=== PATIENT | male | born 1935 | race Caucasian/White ===

== ENCOUNTER 2016-10-27 21:13 | Inpatient (IN) ==
[2016-10-27] MEDS ORDERED: 0.9 % Sodium Chloride 1,000 ML IVC SCH (22:45)
--- NOTE | 2016-10-28 00:49 | Internal Med History&Physical ---
<Miracle Morales - Last Filed: 10/28/16 04:29> Date of Encounter: 10/28/16 Time of Encounter: 00:20 Assessment and Plan (1) Weakness Current visit: Yes Status: Acute Patient states that he had an episode about two weeks ago where he fell while trying to sit on a commode. He also states that today he was not able to walk or move, and felt that his muscles were stiff. CT head was done at [facility], and shows no evidence of an intracranial bleed. CXR showed no acute abnormality. Etiology unclear at this time. (2) Hyperkalemia Current visit: No Status: Acute patient was recently started on lasix and oral potassium supplementation by PCP due to recent signs and symptoms of fluid retention (12lb weight gain in less than one month, 3-4+ pitting edema in bilateral lower extremities, low oxyen sat ). Etiology likely multifactorial secondary to iatragenic causes in combination with baseline CKD. Initial potassium at [facility] ED was 5.6 After kayexalate and IVF, potassium now down to 4.2. continue to monitor. Hold home med potassium chloride. PCP follow up after hospital discharge strongly recommended. (3) Elevated LFTs Current visit: Yes Status: Acute Etiology unclear at this time. Consider hepato-renal syndrome. Holding statin Acetaminophen levels pending Repeat LFTs pending for 1200 Ultrasound of GB and liver pending. total and fractionated billirubin pending at 1200 UDS pending. (4) ANDREW (acute kidney injury) Current visit: Yes Status: Acute Patient's initial Cr was measured at 3.22, his baseline is around 2.6 Holding lisinopri, furosemide. IVF hydration at 75 ml/hr. Consider post renal obstruction, as patient has history of BPH. consider possible congestion secondary to new onset CHF and ichemic cardiomyopathy. Consult to nephrology- patient states he sees Dr. Polk. (5) CKD (chronic kidney disease) Current visit: Yes Status: Chronic continue to monitor IVF hydration plan as above. Qualifiers: Chronic kidney disease stage: unspecified stage Qualified Code(s): N18.9 - Chronic kidney disease, unspecified (6) CAD (coronary artery disease) Current visit: Yes Status: Chronic Continue plavix once home med list confirmed. Qualifiers: Coronary Disease-Associated Artery/Lesion type: bypass graft [place] vs. transplanted heart: unspecified whether [place] or transplanted heart Associated angina: angina presence unspecified Qualified Code(s): I25.810 - Atherosclerosis of coronary artery bypass graft(s) without angina pectoris (7) HTN (hypertension) Current visit: Yes Status: Acute Hold Lisinopril and furosemide due to ANDREW. Blood presures stable at this time. Qualifiers: Hypertension type: essential hypertension Qualified Code(s): I10 - Essential (primary) hypertension (8) Diabetes Current visit: Yes Status: Chronic patient takes Glipizide at home- will hold. Recommend discontinuation, as it is renally excreted and patient has CKD- follow up with PCP outpatient. Sugars well controlled at this time. Low dose sliding scale insulin ACHS accuchecks. Qualifiers: Diabetes mellitus type: type 2 Diabetes mellitus complication status: with unspecified complications Diabetes mellitus intermediate manager insulin use: without intermediate manager use Qualified Code(s): E11.8 - Type 2 diabetes mellitus with unspecified complications (9) GERD (gastroesophageal reflux disease) Current visit: Yes Status: Acute Protonix for GI prophylaxis. Qualifiers: Esophagitis presence: esophagitis presence not specified Qualified Code(s) : K21.9 - Gastro-esophageal reflux disease without esophagitis (10) BPH (benign prostatic hyperplasia) Current visit: Yes Status: Acute continue Flomax once home med list confirmed. May be a possible contributor to ANDREW Qualifiers: Prostatic enlargement morphology: unspecified morphology Lower urinary tract symptom presence: presence of symptoms unspecified Qualified Code(s): N40.0 - Benign prostatic hyperplasia without lower urinary tract symptoms (11) Hypothyroidism Current visit: Yes Status: Chronic restart levothyroxine once home med list is confirmed. Qualifiers: Hypothyroidism type: unspecified Qualified Code(s): E03.9 - Hypothyroidism , unspecified (12) DVT prophylaxis Current visit: Yes Status: Acute Heparin 5,000 units SQ Q8HR Internal Medicine - H&P: HPI Chief complaint: weakness Admitted From: Hospital to Hospital Transfer Plans for Post Hospital Care: Home History of present illness: PCP: Angie Austin Mr. Mueller is a 81 year old male with PMHx of CAD (s/p CABG), hx of stroke, CKD, HTN, DM, CHF, right carotid stenosis, sick sinus syndrome, ischemic cardiomyopathy. Patient came as a transfer from the [facility]. He initially went to the ED with CC of confusion that started about one week ago. According to his son (who was at bedside), patient was confused earlier in the day. When he went to get up and walk he froze and could not keep walking. Patient states that he wanted to walk, but could no move. He says his muscles felt stiff. Patient recently diagnosed with CHF by his PCP and started on lasix with potassium supplementation. Patient complains of decreased appetite that started about two weeks ago, and he states that he cannot "keep his thoughts together." He also reports that he had some trouble walking and dyspnea upon exertion. He had one episode two weeks ago where he fell while going to sit down on the commode. He denies nausea and vomiting. He denies subjective fevers but reports chills. He denies hematuria, hematochezia. He denies numbness/tingling, headache , excess bleeding. 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 Social Hx: lives with his son and daughter in law. DOes not smoke currently, but has a history of smoking for twenty years, 1PPD. He quit when he was about 29. Denies alcohol and illicit drug use. Family Hx: mother in 70s from brain tumor. Father had DM, in 70s from respiratory failure. He has two sons who are alive and healthy. Past Med Surg Social Fam HX - Past Medical History Medical history: coronary artery disease, CVA, diabetes, GERD, glaucoma, hyperlipidemia, hypertension, renal disease Psychiatric history: no psych history - Past Surgical History Surgical History: coronary bypass (CABG) - Social History Smoking Status: Former smoker Smokeless Tobacco Status: No Alcohol use: none Drug use: none - Family History Father Hx Family Endocrine Disorder: Yes (diabetes) Mother Hx Family Cancer: Yes (brain) Internal Medicine - H&P: Meds Benzonatate [Tessalon] 100 mg PO TID PRN 10/27/16 [History] Clopidogrel [Plavix] 75 mg PO DAILY 10/27/16 [History] Furosemide [Lasix] 40 mg PO DAILY 10/27/16 [History] GlipiZIDE [Glucotrol] 2.5 mg PO 3XW 10/27/16 [History] Levothyroxine [Synthroid] 25 mcg PO DAILY 10/27/16 [History] Lisinopril 2.5 mg PO DAILY 10/27/16 [History] Metoprolol Succinate 25 mg PO DAILY 10/27/16 [History] Omeprazole 20 mg PO DAILY 10/27/16 [History] Potassium Chloride [Klor-Con 10] 10 meq PO DAILY 10/27/16 [History] Simvastatin [Zocor] 20 mg PO DAILY 10/27/16 [History] Tamsulosin HCl [Flomax] 0.4 mg PO DAILY 10/27/16 [History] Allergies No Known Allergies Allergy (Verified 10/27/16 18:51) All Systems PM: A 10-system review of systems was performed and is negative for pertinent findings except as documented above in the HPI. - Constitutional Constitutional: chills, lethargy, weakness, no fever(s) - EENT Nose, mouth and throat: no bleeding gums - Cardiovascular Cardiovascular ROS IM: dyspnea on exertion, no syncope - Respiratory Respiratory: no cough - Gastrointestinal Gastrointestinal: diarrhea, no vomiting - Neurological Neurological ROS: abnormal gait, weakness - Hematologic/Lymphatic Hematologic/Lymphatic: no easy bleeding - Constitutional Vitals: Temp Pulse Resp BP Pulse Ox 97.4 F L 62 16 122/72 99 10/27/16 22:55 10/27/16 22:55 10/27/16 22:55 10/27/16 22:55 10/27/16 23:37 General appearance: Present: A&O X 3, pleasant, no acute distress, answers questions appropriately - Head Head exam: Present: atraumatic, normocephalic - Neck Neck exam general surgery: Present: supple, trachea midline - Respiratory Respiratory exam: Present: CTAB. Absent: respiratory distress, wheezes - Cardiovascular Cardiovascular exam: Present: RRR, +S1, +S2 - GI/Abdominal GI/Abdominal exam: Present: normal bowel sounds, soft, tenderness. Absent: guarding Additional comments: tenderness in mid abdomen and epigastric area. - Extremities Exam Extremities exam: Absent: cyanotic, pedal edema Additional comments: patient has ulcer below his right foot. - Neurological Exam Neurological exam: Present: alert, oriented X3. Absent: motor sensory deficit, facial droop, speech deficit - Skin Skin exam: Present: erythema Internal Med - H&P Results - Labs CBC & Chem 7: 10/28/16 00:54 10/28/16 00:54 <Huey Walker - Last Filed: 10/28/16 06:27> Date of Encounter: 10/28/16 All Systems PM: A 10-system review of systems was performed and is negative for pertinent findings except as documented above in the HPI. - EENT Eyes: no blurry vision, no change in vision Ears: no ear pain, no tinnitus Nose, mouth and throat: no nasal congestion, no sore throat - Respiratory Respiratory: no cough, no chest congestion - Gastrointestinal Gastrointestinal: abdominal pain, nausea, no hematemesis, no hematochezia, no melena, no vomiting - Genitourinary Genitourinary ROS male: other (+ decreased urine output), no dysuria, no hematuria - Musculoskeletal Musculoskeletal ROS IM: muscle cramps, muscle weakness, no arthralgias, no back pain - Integumentary Integumentary IM: no rash - Psychiatric Psychiatric: no anxiety, no depression - Endocrine Endocrine IM: no cold intolerance, no heat intolerance - Allergic/Immunologic Allergic/Immunologic: GI upset with certain foods, no wheezing - Constitutional Vitals: Temp Pulse Resp BP Pulse Ox 97.8 F 61 16 124/72 98 10/28/16 04:36 10/28/16 04:36 10/28/16 04:36 10/28/16 04:36 10/28/16 04:36 General appearance: Present: A&O X 3, pleasant, no acute distress Exam: pt looks very dry - Head Head exam: Present: atraumatic, normocephalic - Expanded Head Exam Head exam expanded: Absent: abrasion, contusion, general tenderness - Eye Eye exam: Present: EOMI, normal appearance, PERRL, scleral icterus (subtle ) Pupils: Present: normal accommodation - ENT ENT exam: Present: mucous membranes dry, normal exam, normal oropharynx - Neck Neck exam general surgery: Present: full ROM, supple. Absent: lymphadenopathy, normal inspection - Expanded Neck Exam Neck exam: Absent: carotid bruit - Respiratory Respiratory exam: Present: CTAB. Absent: rales, rhonchi - Cardiovascular Cardiovascular exam: Present: distant heart sounds, RRR, +S1, +S2, systolic murmur (grade 1) - GI/Abdominal GI/Abdominal exam: Present: tenderness (RUQ pain -- mild, no guarding), no peritoneal signs. Absent: guarding, hepatomegaly, mass, rebound, splenomegaly - Extremities Exam Extremities exam: Present: warm. Absent: calf tenderness, joint swelling - Back Exam Back exam: Present: normal inspection. Absent: CVA tenderness (L), CVA tenderness (R) - Neurological Exam Neurological exam: Present: alert, CN II-XII intact, oriented X3, no focal deficits - Psychiatric Psychiatric exam: Present: normal affect, normal mood - Skin Skin exam: Present: dry, warm. Absent: rash Internal Med - H&P Results - Labs CBC & Chem 7: 10/28/16 05:00 10/28/16 05:00 Labs: Short CBC 10/28/16 10/28/16 Range/Units 00:54 05:00 WBC 6.3 5.9 (4.3-11.1) K/mcL Hgb 12.7 L 12.4 L (12.9-16.9) g/dL Hct 39.2 37.8 (37.5-50.1) % Plt Count 159 161 (140-400) K/mcL Neutrophils # 4.2 3.8 (1.6-8.9) K/mcL BMP 10/28/16 10/28/16 00:54 05:00 Sodium 141 143 Potassium 4.2 D 3.9 Chloride 107 108 Carbon Dioxide 25 23 BUN 66 H 64 H Creatinine 3.02 H 2.76 H Glucose 118 H 95 Calcium 9.4 9.2 Liver Function 10/28/16 Range/Units 00:54 Total Bilirubin 3.8 H (0.2-1.2) mg/dL AST 89 H (5-34) Units/L ALT 73 H (0-55) Units/L Alkaline Phosphatase 688 H (38-126) Units/L Albumin 2.6 L (3.5-5.0) g/dL - EKG Data -: EKG Interpreted by Myself - EKG Data EKG comments: 10/28/16 06:15 paced rhythm - Attending Attestation I discussed the patent SELDOVIA, PMH, ROS, lab data, and exam findings with Dr. Morales. I then saw and examined patient independently as well. On my assessment, patient looks very dry and has some scleral icterus on exam. He denies any excessive Tylenol use, heavy alcohol use, and/or any illicit drug use. He does admit to having chronic/recurrent RUQ abdominal pain, and he still has his gallbladder. We are holding his diuretics and are gingerly hydrating him with IVF. I agree with renal and GB ultrasounds as per Dr. Morales. We will also ask Dr. Polk to see patient in consult. Other than my comments and noted exam findings, I agree with Dr. Morales' assessment and plan.
[2016-10-28] MEDS ORDERED: Acetaminophen 325 MG TABLET PO PRN (00:50)
[2016-10-28] MEDS ORDERED: Naloxone 0.4 MG/ML INJ IVP PRN (00:50)
[2016-10-28] MEDS ORDERED: Ondansetron 4 MG/2 ML VIAL IVP PRN (00:50)
[2016-10-28 01:08] LABS: Basophils % 0.3 %; Eosinophils # 0.2 K/mcL (0.0-0.6); Eosinophils % 2.7 %; Hematocrit 39.2 % (37.5-50.1); Hemoglobin 12.7 g/dL (12.9-16.9); Immature Granulocytes % 1.1 % (0-4); Lymphocytes # 1.2 K/mcL (0.6-4.6); Lymphocytes % 19.8 %; Mean Corpuscular HGB Conc 32.4 g/dL (31.6-35.5); Mean Corpuscular Volume 95.6 fL (83.0-100.0); Mean Platelet Volume 11.1 fL (9.4-12.4); Monocytes # 0.5 K/mcL (0.0-1.3); Monocytes % 8.6 %; Neutrophils # 4.2 K/mcL (1.6-8.9); Platelet Count 159 K/mcL (140-400); Red Cell Distribution Width 16.1 % (11.5-14.5); Segmented Neutrophils % 67.5 %
[2016-10-28 01:20] LABS: Albumin 2.6 g/dL (3.5-5.0); Albumin/Globulin Ratio 0.7 (1.1-2.2); Bilirubin,Total 3.8 mg/dL (0.2-1.2); Calcium 9.4 mg/dL (8.6-10.8); Globulin 3.5 g/dL (2.4-3.5); Magnesium 1.4 mg/dL (1.6-2.6); Potassium 4.2 mEq/L (3.5-4.5); Total Protein 6.1 g/dL (6.0-8.3)
[2016-10-28] MEDS ORDERED: *HR* Dextrose 50 % in Water (Syg) 50 ML SYRINGE IVP PRN (02:46)
[2016-10-28] MEDS ORDERED: Dextrose Gel 15 GM PO PRN ×2 (02:46)
[2016-10-28] MEDS ORDERED: D5% in Water 1,000 ML IV PRN (02:46)
[2016-10-28 05:38] LABS: Basophils % 0.3 %; Eosinophils # 0.2 K/mcL (0.0-0.6); Eosinophils % 2.5 %; Hematocrit 37.8 % (37.5-50.1); Hemoglobin 12.4 g/dL (12.9-16.9); Immature Granulocytes % 0.8 % (0-4); Lymphocytes # 1.3 K/mcL (0.6-4.6); Lymphocytes % 22.3 %; Mean Corpuscular HGB Conc 32.8 g/dL (31.6-35.5); Mean Corpuscular Hemoglobin 31.3 pg (28.0-33.3); Mean Corpuscular Volume 95.5 fL (83.0-100.0); Mean Platelet Volume 11.3 fL (9.4-12.4); Monocytes # 0.6 K/mcL (0.0-1.3); Monocytes % 9.9 %; Neutrophils # 3.8 K/mcL (1.6-8.9); Platelet Count 161 K/mcL (140-400); Red Blood Count 3.96 M/mcL (4.19-5.50); Red Cell Distribution Width 16.2 % (11.5-14.5); Segmented Neutrophils % 64.2 %
[2016-10-28 06:07] LABS: Calcium 9.2 mg/dL (8.6-10.8); Magnesium 1.3 mg/dL (1.6-2.6); Phosphorous 3.8 mg/dL (2.3-4.7); Potassium 3.9 mEq/L (3.5-4.5)
[2016-10-28] MEDS: Insulin LISPRO 300 UNITS/3 ML VIAL SQ SCH ×3 (08:25→18:13)
[2016-10-28 08:28] LABS: Amphetamine Screen,Urine Negative ng/mL (Cutoff=1000); Barbiturate Screen,Urine Negative ng/mL (Cutoff=200); Benzodiazepines Screen,Urine Negative ng/mL (Cutoff=200); Cannabinoid Screen,Urine Negative ng/mL (Cutoff = 50); Cocaine Screen,Urine Negative ng/mL (Cutoff= 300); Opiate Screen,Urine Negative ng/mL (Cutoff=300); Phencyclidine Screen,Urine Negative ng/mL (Cutoff=25)
[2016-10-28] MEDS ORDERED: Pantoprazole 40 MG VIAL IVP SCH (09:00)
[2016-10-28] MEDS: 0.9 % Sodium Chloride 1,000 ML IVC SCH ×2 (09:00→23:46)
[2016-10-28] MEDS: *HR* Heparin 5,000 UNIT/ML VIAL SQ SCH ×3 (09:58→23:46)
[2016-10-28] MEDS ORDERED: Magnesium Oxide 400 MG TABLET PO SCH (12:15)
[2016-10-28 12:41] LABS: Albumin 2.4 g/dL (3.5-5.0); Albumin/Globulin Ratio 0.8 (1.1-2.2); Bilirubin,Direct 2.2 mg/dL (0.0-0.5); Bilirubin,Indirect 1.2 mg/dL (0.0-1.2); Bilirubin,Total 3.4 mg/dL (0.2-1.2); Globulin 3.1 g/dL (2.4-3.5); Potassium 4.2 mEq/L (3.5-4.5); Total Protein 5.5 g/dL (6.0-8.3)
[2016-10-28 12:43] LABS: Bilirubin,Urine Negative (Negative); Blood,Urine Negative (Negative); Clarity,Urine Clear (Clear); Color,Urine Dark Yellow (Yellow); Glucose,Urine (UA) Normal (Normal); Ketones,Urine Negative (Negative); Leukocyte Esterase,Urine Negative (Negative); Nitrite,Urine Negative (Negative); Protein,Urine Negative (Neg-Trace); Specific Gravity,Urine 1.014 (1.010-1.025); Urobilinogen,Urine Normal (Normal)
--- NOTE | 2016-10-28 13:13 | Nephrology Consult Note ---
Date of Encounter: 10/28/16 Time of Encounter: 11:35 Assessment and Plan (1) ANDREW (acute kidney injury) Current Visit: Yes Status: Acute ANDREW/CKD in setting of decreased oral intake and diuresis. Creat 2.76, currently at patients baseline with IV hydration. Renal US pending. Hyperkalemia resolved. Muscle stiffness/weakness and confusion resolved. Aviod nephrotoxins, will continue to monitor. History of Present Illness - Reason for Consult Chronic Kidney Disease - History of Present Illness Mr. Mueller is a 81 year old male known to practice wit CKD IV, baseline creat 2.6 -2.9 in setting of DM and HTN. Other PMH- HTN, HLD, BPH/TURP, MGUS, CAD, CABG, sick sinus syndrome, ischemic cardiomyopathy, right carotid stenosis and CVA. Mr. Mueller transferred from [facility] with initial complaint of confusion, stiff muscles and inability to walk. States recently placed on Lasix and potassium supplement for CHF. He stated he had decreased appetite for two weeks and has had some shortness of breath with exertion. He denies N/V or diarrhea. Denies fever, admits chills. He denies hematuria, hematochezia. He denies numbness, tingling or headache. He denies difficulty emptying bladder. Denies NSAID use. K+ was 5.6, given Kaexylate and IV fluids, repeat K+ 4.2. Initial creat 3.22, given IV hydration 75ml/hr, todays creat 2.76. Furosemide and Lisinopril held. This morning states has no weakness or muscle stiffness and thinking is clear. Past Med Surg Social Fam HX - Past Medical History Medical history: coronary artery disease, CVA, diabetes, GERD, glaucoma, hyperlipidemia, hypertension, renal disease Psychiatric history: no psych history - Past Surgical History Surgical History: coronary bypass (CABG) - Social History Smoking Status: Former smoker Smokeless Tobacco Status: No Alcohol use: none Drug use: none - Family History Father Hx Family Endocrine Disorder: Yes (diabetes) Mother Hx Family Cancer: Yes (brain) Medications and Allergies Clopidogrel [Plavix] 75 mg PO DAILY 10/27/16 [History] Furosemide [Lasix] 40 mg PO DAILY 10/27/16 [History] GlipiZIDE [Glucotrol] 2.5 mg PO 3XW 10/27/16 [History] Levothyroxine [Synthroid] 25 mcg PO DAILY 10/27/16 [History] Lisinopril 2.5 mg PO DAILY 10/27/16 [History] Metoprolol Succinate 25 mg PO DAILY 10/27/16 [History] Omeprazole 20 mg PO DAILY 10/27/16 [History] Potassium Chloride [Klor-Con 10] 10 meq PO BID 10/27/16 [History] Simvastatin [Zocor] 20 mg PO DAILY 10/27/16 [History] Tamsulosin HCl [Flomax] 0.4 mg PO DAILY 10/27/16 [History] Cholecalciferol (Vitamin D3) [Vitamin D] 5,000 unit PO DAILY 10/28/16 [History] Folic Acid 1 mg PO DAILY 10/28/16 [History] Allergies No Known Allergies Allergy (Verified 10/28/16 08:41) Review of Systems All Systems: reviewed and no additional remarkable complaints except as stated Exam - Vital Signs Vital signs: Initial Vital Signs Temp Pulse Resp BP Pulse Ox 97.4 F L 62 16 122/72 99 10/27/16 22:55 10/27/16 22:55 10/27/16 22:55 10/27/16 22:55 10/27/16 22:55 Vital Signs - Last 8 Hours Temp Pulse Resp BP Pulse Ox 10/28/16 11:51 98.2 F 61 16 100/56 98 Intake and Output 10/27/16 10/28/16 10/28/16 23:59 07:59 15:59 Intake Total 1098 / 1098 Output Total 0 / 0 Balance 1098 / 1098 Intake: IV Fluids 498 / 498 0.9 % Sodium Chloride 1, 498 / 498 000 ML @ 100 mls/hr IVC . Q10H THOMAS Rx#:[id number] Oral 600 / 600 Output: Urine 0 / 0 Other: Meal Breakfast Stool Size Moderate Stool Consistency liquid soft formed Stool Color Brown # Voids 1 # Bowel Movements 1 Weight 68.2 kg Blood Glucose* 97 Patient Weight 10/28/16 23:59 Weight 68.2 kg - General Appearance General appearance: well-developed, well-nourished, appears started age EENT: mucous membranes moist Neck: no JVD Respiratory: clear Cardiology: no edema, regular rate, regular rhythm Gastrointestinal: normoactive bowel sounds, no tenderness Integumentary: warm and dry Neurologic: alert and oriented x3 Psychiatric: mood/affect appropriate, cooperative Results - Lab Results 10/28/16 05:00 10/28/16 12:08 Most recent lab results Calcium 9.0 mg/dL (8.6-10.8) 10/28/16 12:08 Phosphorus 3.8 mg/dL (2.3-4.7) 10/28/16 05:00 Magnesium 1.3 mg/dL (1.6-2.6) L 10/28/16 05:00 Consult Discharge Plan - Plan Referrals: NO,PCP [Primary Care Provider] -
--- NOTE | 2016-10-28 16:35 | Internal Med Progress Note ---
Date of Encounter: 10/28/16 Time of Encounter: 16:33 - Assessment and plan (1) Toxic metabolic encephalopathy Current Visit: Yes Status: Acute Assessment and plan: Acute metabolic encephalopathy of unclear etiology possibly related to acute on chronic renal failure as his creatinine was 3.22 CT scan of the head was normal, showed an old stroke in the right parietal- occipital area Ammonia was checked and it was normal at 31 Check hepatitis profile in the morning UA was checked showing no abnormalities (2) ANDREW (acute kidney injury) Current Visit: Yes Status: Acute Assessment and plan: Acute on chronic renal failure stage III Hold Lasix and lisinopril Continue mild hydration (3) Elevated LFTs Current Visit: Yes Status: Acute Assessment and plan: Hyperbilirubinemia, unclear etiology Hepatitis panel Right upper quadrant ultrasound pending (4) HTN (hypertension) Current Visit: Yes Status: Acute Qualifiers: Hypertension type: essential hypertension Qualified Code(s): I10 - Essential (primary) hypertension (5) Weakness Current Visit: Yes Status: Acute (6) CAD (coronary artery disease) Current Visit: Yes Status: Chronic Assessment and plan: Continue Plavix and add aspirin Qualifiers: Coronary Disease-Associated Artery/Lesion type: bypass graft [place] vs. transplanted heart: unspecified whether [place] or transplanted heart Associated angina: angina presence unspecified Qualified Code(s): I25.810 - Atherosclerosis of coronary artery bypass graft(s) without angina pectoris (7) Diabetes Current Visit: Yes Status: Chronic Assessment and plan: Continue insulin sliding scale Takes glipizide at home Qualifiers: Diabetes mellitus type: type 2 Diabetes mellitus complication status: with unspecified complications Diabetes mellitus custodial insulin use: without manager terminal use Qualified Code(s): E11.8 - Type 2 diabetes mellitus with unspecified complications (8) Hyperkalemia Current Visit: No Status: Acute Assessment and plan: Resolved after the administration of Kayexalate (9) BPH (benign prostatic hyperplasia) Current Visit: Yes Status: Acute Qualifiers: Prostatic enlargement morphology: unspecified morphology Lower urinary tract symptom presence: presence of symptoms unspecified Qualified Code(s): N40.0 - Benign prostatic hyperplasia without lower urinary tract symptoms (10) Systolic CHF Current Visit: Yes Status: Acute Assessment and plan: Ejection fraction of 30-35% with history of ischemic cardiomyopathy No exacerbation May resume Lasix 40 mg daily upon discharge Qualifiers: Congestive heart failure chronicity: unspecified congestive heart failure chronicity Qualified Code(s): I50.20 - Unspecified systolic (congestive) heart failure - Time Spent With Patient Greater than 35 minutes - Subjective Interval history: Denies any complaint of the moment, is not confused anymore. Denies any chest pain, no shortness of breath, no abdominal pain. Had some diarrhea after taking Kayexalate at [facility]. - Constitutional Vitals: Temp Pulse Resp BP Pulse Ox 98.2 F 61 16 100/56 98 10/28/16 11:51 10/28/16 11:51 10/28/16 11:51 10/28/16 11:51 10/28/16 11:51 General appearance: Present: A&O X 3, pleasant, no acute distress - Head Head exam: Present: atraumatic, normocephalic - Eye Eye exam: Present: PERRL, conjuntiva pink, sclera anicteric Pupils: Present: PERRL - Neck Neck exam general surgery: Present: supple, trachea midline. Absent: lymphadenopathy - Respiratory Respiratory exam: Present: CTAB. Absent: accessory muscle use, rales, rhonchi, wheezes - Cardiovascular Cardiovascular exam: Present: RRR, +S1, +S2. Absent: diastolic murmur, gallop, rubs, systolic murmur - GI/Abdominal GI/Abdominal exam: Present: normal bowel sounds, soft, no peritoneal signs. Absent: distended, tenderness - Extremities Exam Extremities exam: Present: warm, radial pulses palpable and symetrical. Absent : calf tenderness, cyanotic, pedal edema - Neurological Exam Neurological exam: Present: CN II-XII intact, oriented X3, no focal deficits. Absent: pronater drift, facial droop, speech deficit - Skin Skin exam: Present: dry, intact Internal Medicine: Result - Labs CBC & Chem 7: 10/28/16 05:00 10/28/16 12:08 Labs: Short CBC 10/28/16 10/28/16 Range/Units 00:54 05:00 WBC 6.3 5.9 (4.3-11.1) K/mcL Hgb 12.7 L 12.4 L (12.9-16.9) g/dL Hct 39.2 37.8 (37.5-50.1) % Plt Count 159 161 (140-400) K/mcL Neutrophils # 4.2 3.8 (1.6-8.9) K/mcL BMP 10/28/16 10/28/16 10/28/16 00:54 05:00 12:08 Sodium 141 143 145 Potassium 4.2 D 3.9 4.2 Chloride 107 108 112 H Carbon Dioxide 25 23 24 BUN 66 H 64 H 63 H Creatinine 3.02 H 2.76 H 2.86 H Glucose 118 H 95 101 H Calcium 9.4 9.2 9.0 Liver Function 10/28/16 10/28/16 Range/Units 00:54 12:08 Total Bilirubin 3.8 H 3.4 H (0.2-1.2) mg/dL Direct Bilirubin 2.2 H (0.0-0.5) mg/dL AST 89 H 85 H (5-34) Units/L ALT 73 H 66 H (0-55) Units/L Alkaline Phosphatase 688 H 614 H (38-126) Units/L Albumin 2.6 L 2.4 L (3.5-5.0) g/dL Urine 10/28/16 Range/Units 12:31 Urine Color Dark Yellow (Yellow) Urine Clarity Clear (Clear) Urine pH 5.0 (5.0-8.0) pH Units Ur Specific [place] 1.014 (1.010-1.025) Urine Protein Negative (Neg-Trace) mg/dL Urine Glucose (UA) Normal (Normal) mg/dL Consult Discharge Plan - Plan Referrals: Angie Austin CNP [Advanced Practice Nurse] - 11/05/16 9:00 am
[2016-10-28] MEDS ORDERED: Insulin LISPRO 300 UNITS/3 ML VIAL SQ SCH (21:00)
[2016-10-28] MEDS: Magnesium Oxide 400 MG TABLET PO SCH (21:40)
[2016-10-29] MEDS: *HR* Heparin 5,000 UNIT/ML VIAL SQ SCH ×2 (06:02→23:37)
[2016-10-29 07:08] LABS: Albumin 2.4 g/dL (3.5-5.0); Albumin/Globulin Ratio 0.8 (1.1-2.2); Bilirubin,Total 3.4 mg/dL (0.2-1.2); Calcium 8.8 mg/dL (8.6-10.8); Globulin 3.1 g/dL (2.4-3.5); Potassium 3.9 mEq/L (3.5-4.5); Total Protein 5.5 g/dL (6.0-8.3)
[2016-10-29] MEDS ORDERED: 0.9 % Sodium Chloride 1,000 ML IVC SCH ×3 (07:37→09:46)
--- NOTE | 2016-10-29 07:42 | Internal Med Progress Note ---
Date of Encounter: 10/29/16 Time of Encounter: 07:38 - Assessment and plan (1) Toxic metabolic encephalopathy Current Visit: Yes Status: Acute Assessment and plan: Acute metabolic encephalopathy likely secondary to acute cholecystitis and also possibly related to acute on chronic renal failure as his creatinine was 3.22 CT scan of the head was normal, showed an old stroke in the right parietal- occipital area Ammonia was checked and it was normal at 31 hepatitis profile pending Ultrasound of the right upper quadrant shows cholelithiasis with moderate gallbladder wall thickening and negative sonographic Colunga sign, clinically the patient presents positive Colunga sign. Dr. Garay was consulted, the patient is currently nothing by mouth for possible cholecystectomy HIDA scan not recommended by Dr Garay, continue IV fluids Start Rocephin and Flagyl IV UA was checked showing no abnormalities (2) Cholecystitis, acute with cholelithiasis Current Visit: Yes Status: Acute Qualifiers: Cholelithiasis location: gallbladder Biliary obstruction: without biliary obstruction Qualified Code(s): K80.00 - Calculus of gallbladder with acute cholecystitis without obstruction (3) ANDREW (acute kidney injury) Current Visit: Yes Status: Acute Assessment and plan: Acute on chronic renal failure stage III, improving Hold Lasix and lisinopril Continue mild hydration (4) Elevated LFTs Current Visit: Yes Status: Acute Assessment and plan: Hyperbilirubinemia, likely related to cholelithiasis/cholecystitis Hepatitis panel pending (5) HTN (hypertension) Current Visit: Yes Status: Acute Qualifiers: Hypertension type: essential hypertension Qualified Code(s): I10 - Essential (primary) hypertension (6) Weakness Current Visit: Yes Status: Acute (7) CAD (coronary artery disease) Current Visit: Yes Status: Chronic Assessment and plan: Hold aspirin and Plavix for possible surgical procedure Qualifiers: Coronary Disease-Associated Artery/Lesion type: bypass graft [place] vs. transplanted heart: unspecified whether [place] or transplanted heart Associated angina: angina presence unspecified Qualified Code(s): I25.810 - Atherosclerosis of coronary artery bypass graft(s) without angina pectoris (8) Diabetes Current Visit: Yes Status: Chronic Assessment and plan: Continue insulin sliding scale Takes glipizide at home Qualifiers: Diabetes mellitus type: type 2 Diabetes mellitus complication status: with unspecified complications Diabetes mellitus longterm insulin use: without longterm use Qualified Code(s): E11.8 - Type 2 diabetes mellitus with unspecified complications (9) Hyperkalemia Current Visit: No Status: Acute Assessment and plan: Resolved after the administration of Kayexalate (10) BPH (benign prostatic hyperplasia) Current Visit: Yes Status: Acute Qualifiers: Prostatic enlargement morphology: unspecified morphology Lower urinary tract symptom presence: presence of symptoms unspecified Qualified Code(s): N40.0 - Benign prostatic hyperplasia without lower urinary tract symptoms (11) Systolic CHF Current Visit: Yes Status: Acute Assessment and plan: Ejection fraction of 30-35% with history of ischemic cardiomyopathy No exacerbation May resume Lasix 40 mg daily upon discharge Qualifiers: Congestive heart failure chronicity: unspecified congestive heart failure chronicity Qualified Code(s): I50.20 - Unspecified systolic (congestive) heart failure - Subjective Interval history: Complains of diffuse abdominal pain, has some tenderness in the right upper quadrant. No fevers overnight. Denies any chest pain, no shortness of breath. Had some diarrhea after taking Kayexalate at [place], but has been having diarrhea for the past week on and off. - Constitutional Vitals: Temp Pulse Resp BP Pulse Ox 97.7 F 60 14 116/59 99 10/29/16 06:52 10/29/16 06:52 10/29/16 06:52 10/29/16 06:52 10/29/16 06:52 General appearance: Present: A&O X 3, pleasant, no acute distress - Head Head exam: Present: atraumatic, normocephalic - Eye Eye exam: Present: PERRL, conjuntiva pink, sclera anicteric Pupils: Present: PERRL - Neck Neck exam general surgery: Present: supple, trachea midline. Absent: lymphadenopathy - Respiratory Respiratory exam: Present: CTAB. Absent: accessory muscle use, rales, rhonchi, wheezes - Cardiovascular Cardiovascular exam: Present: RRR, +S1, +S2. Absent: diastolic murmur, gallop, rubs, systolic murmur - GI/Abdominal GI/Abdominal exam: Present: normal bowel sounds, soft, tenderness (Right upper quadrant tenderness, Colunga's sign is positive), no peritoneal signs. Absent: distended - Extremities Exam Extremities exam: Present: warm, radial pulses palpable and symetrical. Absent : calf tenderness, cyanotic, pedal edema - Neurological Exam Neurological exam: Present: CN II-XII intact, oriented X3, no focal deficits. Absent: pronater drift, facial droop, speech deficit - Skin Skin exam: Present: dry, intact Internal Medicine: Result - Labs CBC & Chem 7: 10/28/16 05:00 10/29/16 05:30 Labs: BMP 10/28/16 10/29/16 12:08 05:30 Sodium 145 140 Potassium 4.2 3.9 Chloride 112 H 108 Carbon Dioxide 24 23 BUN 63 H 52 H Creatinine 2.86 H 2.45 H Glucose 101 H 97 Calcium 9.0 8.8 Liver Function 10/28/16 10/29/16 Range/Units 12:08 05:30 Total Bilirubin 3.4 H 3.4 H (0.2-1.2) mg/dL Direct Bilirubin 2.2 H (0.0-0.5) mg/dL AST 85 H 76 H (5-34) Units/L ALT 66 H 61 H (0-55) Units/L Alkaline Phosphatase 614 H 569 H (38-126) Units/L Albumin 2.4 L 2.4 L (3.5-5.0) g/dL Urine 10/28/16 Range/Units 12:31 Urine Color Dark Yellow (Yellow) Urine Clarity Clear (Clear) Urine pH 5.0 (5.0-8.0) pH Units Ur Specific [place] 1.014 (1.010-1.025) Urine Protein Negative (Neg-Trace) mg/dL Urine Glucose (UA) Normal (Normal) mg/dL - Impressions Impressions Retroperitoneum Ultrasound 10/28/16 16:00 IMPRESSION: 1. No hydronephrosis. 2. Mild left renal atrophy with increased echogenicity suggesting chronic medical renal disease. 3. Bilateral renal cysts measuring up to 2.1 cm. 4. Bladder wall is trabeculated with multiple small diverticula, a finding which can be seen with neurogenic bladder. D/ / Layo Ambriz MD / Layo Ambriz MD Interpreting Provider: Layo Ambriz MD Gallbladder Ultrasound 10/28/16 16:30 IMPRESSION: 1. Cholelithiasis with mild to moderate gallbladder wall thickening but negative sonographic Colunga's sign. Findings are equivocal for acute cholecystitis. Consider further evaluation with HIDA scan if clinically indicated. 2. Mild right renal atrophy with a 1.8 cm cyst. No hydronephrosis. D/ / Layo Ambriz MD / Layo Ambriz MD Interpreting Provider: Layo Ambriz MD Consult Discharge Plan - Plan Referrals: Angie Austin CNP [Primary Care Provider] - 11/05/16 9:00 am
[2016-10-29] MEDS: Insulin LISPRO 300 UNITS/3 ML VIAL SQ SCH ×3 (07:50→16:11)
[2016-10-29] MEDS: Magnesium Oxide 400 MG TABLET PO SCH ×2 (07:59→23:27)
[2016-10-29] MEDS ORDERED: Aspirin 81 MG TAB.CHEW PO SCH (09:00)
[2016-10-29] MEDS ORDERED: Metoprolol XL (24 HR) Succ 25 MG TAB.ER.24H PO SCH (09:00)
[2016-10-29] MEDS ORDERED: Pantoprazole 40 MG VIAL IV SCH (09:00)
--- NOTE | 2016-10-29 09:43 | Nephrology Progress Note ---
Date of Encounter: 10/29/16 Time of Encounter: 09:20 - Assessment and Plan (1) ANDREW (acute kidney injury) Current Visit: Yes Status: Acute Renal fct at patient baseline. No documented urine output though patient states voiding several times during day an night. Will deccrease IV fluids 75cc/hr. remains NPO for possible ERCP today. Subjective Interval history: States feeling much better. Denies discomfort. Family at bedside. Objective - Vital Signs Vital signs: Vital Signs Temp Pulse Resp BP Pulse Ox 10/29/16 06:52 97.7 F 60 14 116/59 99 10/29/16 04:36 98.0 F 67 98 129/67 10/29/16 00:12 97.6 F 61 16 106/54 99 10/28/16 21:13 97.6 F 60 16 102/58 98 10/28/16 11:51 98.2 F 61 16 100/56 98 Intake and Output 10/28/16 10/29/16 10/29/16 23:59 07:59 15:59 Intake Total 1800 / 1800 50 / 50 Output Total 400 / 400 150 / 150 Balance 1800 / 1800 -350 / -350 -150 / -150 Intake: IV Fluids 1000 / 1000 0.9 % Sodium Chloride 1, 1000 / 1000 000 ML @ 75 mls/hr IVC . [id number] [facility] Rx#: [id number] Oral 800 / 800 50 / 50 Output: Urine 400 / 400 150 / 150 Other: Weight 69 kg Blood Glucose* 151 88 Patient Weight 10/29/16 23:59 Weight 69 kg - General Appearance General appearance: Present: well-developed, well-nourished, appears started age EENT: Present: mucous membranes moist Neck: Present: no JVD Respiratory: Present: clear Cardiology: Present: no edema, regular rate, regular rhythm Gastrointestinal: Present: normoactive bowel sounds, no tenderness Integumentary: Present: warm and dry Neurologic: Present: alert and oriented x3 Psychiatric: Present: mood/affect appropriate, cooperative - Lab 10/28/16 05:00 10/29/16 05:30 Most recent lab results Calcium 8.8 mg/dL (8.6-10.8) 10/29/16 05:30 Phosphorus 3.8 mg/dL (2.3-4.7) 10/28/16 05:00 Magnesium 1.3 mg/dL (1.6-2.6) L 10/28/16 05:00 Consult Discharge Plan - Plan Referrals: Angie Austin, THOMAS [Primary Care Provider] - 11/05/16 9:00 am
[2016-10-29] MEDS: MetroNIDAZOLE 500 MG/100 ML 500 MG/100 ML BAG IVPB SCH ×3 (10:21→23:36)
--- NOTE | 2016-10-29 11:07 | Gastroenterology Consult Note ---
<Arslan Lozada Erick - Last Filed: 10/29/16 11:04> Date of Encounter: 10/29/16 Time of Encounter: 10:30 - Assessment and plan (1) Cholecystitis, acute with cholelithiasis Current Visit: Yes Status: Acute Assessment and plan: RUQ US showed cholelithiasis with mild to moderate gallbladder wall thickening, negative sonographic Colunga sign, CBD within normal limits measuring 5 mm. recommend gallbladder surgery with IOC, if filling defect noted on IOC or LFTs increase, we will consider ERCP on Tuesday. Qualifiers: Cholelithiasis location: gallbladder Biliary obstruction: without biliary obstruction Qualified Code(s): K80.00 - Calculus of gallbladder with acute cholecystitis without obstruction (2) Elevated LFTs Current Visit: Yes Status: Acute Assessment and plan: Continue to monitor LFTs daily. Recommend gallbladder surgery with IOC, if a filling defect is noted on IOC or LFTs rise, we will consider ERCP on Tuesday. - Time Spent With Patient Total time spent is greater than 50% in coordination of care (as documented) at patient's floor/unit and/or counseling patient: GI History of Present Illness - Data of Consult Patient: new to practice Consult date: 10/29/16 Requesting Physician: Josiah Vinson - Consult Narrative Reason for consult: Hyperbilirubinemia History of present illness: Mr. Mueller is a 81 year old male with PMHx of CAD (s/p CABG), stroke, CKD, HTN, DM, CHF, right carotid stenosis, sick sinus syndrome, ischemic cardiomyopathy who was transferred from [place] ED with c/o confusion for one week. Pt with c/o of diffuse abdominal pain. RUQ US showed cholelithiasis with mild to moderate gallbladder wall thickening, CBD within normal limits measuring 5mm, and negative sonographic Colunga's sign. He does reports RUQ pain/cramping. Dr. Garay was consulted for cholecystectomy. We were consulted d/t hyperbilirubinemia. On admission TB 3.4, DB 2.2, AST 85, ALT 66, and alk phos 614. Procedures: EGD 09/22/2009 Dr Sarah: Gastritis, H.pylori positive. Colonoscopy 09/22/2009 Dr Sarah: 2 adenomatous polyps. NSAIDs: None Anticoagulation: None Past Med Surg Social Fam HX - Past Medical History Medical history: coronary artery disease, CVA, diabetes, GERD, glaucoma, hyperlipidemia, hypertension, renal disease Psychiatric history: no psych history - Past Surgical History Surgical History: coronary bypass (CABG) - Social History Smoking Status: Former smoker Smokeless Tobacco Status: No Alcohol use: none Drug use: none - Family History Father Hx Family Endocrine Disorder: Yes (diabetes) Mother Hx Family Cancer: Yes (brain) - Gastrointestinal Gastrointestinal: Present: as per HPI - Constitutional Constitutional: as per HPI - EENT Eyes: as per HPI Ears: Present: as per HPI Nose, mouth and throat: Present: as per HPI - Cardiovascular Cardiovascular ROS: Present: as per HPI - Respiratory Respiratory IM: Present: as per HPI - Genitourinary Genitourinary: Absent: change in color, Urinary frequency - Neurological ROS Neurological GI: Present: as per HPI - Hematologic/Lymphatic Hematologic/Lymphatic pediatric: Present: as per HPI - Musculoskeletal Musculoskeletal ROS GI: Present: as per HPI - Integumentary Integumentary GI: Present: as per HPI - Psychiatric ROS Psychiatric GI: Present: as per HPI - Endocrine Endocrine IM: Present: as per HPI - Constitutional Vitals: Temp Pulse Resp BP Pulse Ox 97.7 F 60 14 116/59 99 10/29/16 06:52 10/29/16 06:52 10/29/16 06:52 10/29/16 06:52 10/29/16 06:52 General appearance: Present: cooperative, A&O X 3, no acute distress, answers questions appropriately - Head Head exam: Present: atraumatic, normocephalic - Eye Eye exam: Present: normal appearance, sclera anicteric - ENT ENT exam: Present: mucous membranes dry - Neck Neck exam general surgery: Present: normal inspection, trachea midline - Respiratory Respiratory exam: Present: CTAB. Absent: rales, rhonchi - Cardiovascular Cardiovascular exam: Present: RRR, +S1, +S2 - GI/Abdominal GI/Abdominal exam: Present: soft, tenderness (mild RUQ tenderness to palpation) , no peritoneal signs. Absent: distended, firm, guarding - Rectal Rectal exam: Present: deferred - Extremities Exam Extremities exam: Present: warm - Neurological Exam Neurological exam: Present: no focal deficits - Psychiatric Psychiatric exam: Present: normal affect, normal mood - Skin Skin exam: Present: dry, intact, normal color, warm Results - Labs CBC & Chem 7: 10/28/16 05:00 10/29/16 05:30 Labs: Last Result Calcium 8.8 mg/dL (8.6-10.8) 10/29/16 05:30 Urine Opiates Screen Negative ng/mL (Iehsny=250) 10/28/16 08:07 Entire Visit Hgb 12.4 g/dL (12.9-16.9) L 10/28/16 05:00 Hct 37.8 % (37.5-50.1) 10/28/16 05:00 Total Bilirubin 3.4 mg/dL (0.2-1.2) H 10/29/16 05:30 AST 76 Units/L (5-34) H 10/29/16 05:30 ALT 61 Units/L (0-55) H 10/29/16 05:30 Ammonia 31 mcmol/L (18-72) 10/28/16 15:06 Acetaminophen < 1.0 mcg/mL (10-30) L 10/28/16 05:00 - Impressions Impressions Retroperitoneum Ultrasound 10/28/16 16:00 IMPRESSION: 1. No hydronephrosis. 2. Mild left renal atrophy with increased echogenicity suggesting chronic medical renal disease. 3. Bilateral renal cysts measuring up to 2.1 cm. 4. Bladder wall is trabeculated with multiple small diverticula, a finding which can be seen with neurogenic bladder. D/ / Layo Ambriz MD / Layo Ambriz MD Interpreting Provider: Layo Ambriz MD Gallbladder Ultrasound 10/28/16 16:30 IMPRESSION: 1. Cholelithiasis with mild to moderate gallbladder wall thickening but negative sonographic Colunga's sign. Findings are equivocal for acute cholecystitis. Consider further evaluation with HIDA scan if clinically indicated. 2. Mild right renal atrophy with a 1.8 cm cyst. No hydronephrosis. D/ / Layo Ambriz MD / Layo Ambriz MD Interpreting Provider: Layo Ambriz MD Consult Discharge Plan - Plan Referrals: Angie Austin V BELT SKIVER [Primary Care Provider] - 11/05/16 9:00 am <Dustin Espino - Last Filed: 10/29/16 13:52> - Time Spent With Patient Total time spent is greater than 50% in coordination of care (as documented) at patient's floor/unit and/or counseling patient: GI History of Present Illness - Data of Consult Requesting Physician: Josiah Vinson - Consult Narrative History of present illness: Mr. Mueller is a 81 year old male - Constitutional Vitals: Temp Pulse Resp BP Pulse Ox 97.5 F L 60 14 101/60 99 10/29/16 11:31 10/29/16 11:31 10/29/16 11:31 10/29/16 11:31 10/29/16 11:31 Results - Labs CBC & Chem 7: 10/28/16 05:00 10/29/16 05:30 Labs: Last Result Calcium 8.8 mg/dL (8.6-10.8) 10/29/16 05:30 Urine Opiates Screen Negative ng/mL (Mfrvbd=112) 10/28/16 08:07 Entire Visit Hgb 12.4 g/dL (12.9-16.9) L 10/28/16 05:00 Hct 37.8 % (37.5-50.1) 10/28/16 05:00 Total Bilirubin 3.4 mg/dL (0.2-1.2) H 10/29/16 05:30 AST 76 Units/L (5-34) H 10/29/16 05:30 ALT 61 Units/L (0-55) H 10/29/16 05:30 Ammonia 31 mcmol/L (18-72) 10/28/16 15:06 Acetaminophen < 1.0 mcg/mL (10-30) L 10/28/16 05:00 - Impressions Impressions Retroperitoneum Ultrasound 10/28/16 16:00 IMPRESSION: 1. No hydronephrosis. 2. Mild left renal atrophy with increased echogenicity suggesting chronic medical renal disease. 3. Bilateral renal cysts measuring up to 2.1 cm. 4. Bladder wall is trabeculated with multiple small diverticula, a finding which can be seen with neurogenic bladder. D/ / Layo Ambriz MD / Layo Ambriz MD Interpreting Provider: Layo Ambriz MD Gallbladder Ultrasound 10/28/16 16:30 IMPRESSION: 1. Cholelithiasis with mild to moderate gallbladder wall thickening but negative sonographic Colunga's sign. Findings are equivocal for acute cholecystitis. Consider further evaluation with HIDA scan if clinically indicated. 2. Mild right renal atrophy with a 1.8 cm cyst. No hydronephrosis. D/ / Layo Ambriz MD / Layo Ambriz MD Interpreting Provider: Layo Ambriz MD - Attending Attestation I examined this patient and my medical decision-making was reviewed with the CALCULATION CLERK/PA/Advanced Practice Nurse/Resident Physician. I agree with the documented findings, disposition and treatment plan as described except to the extent set forth below.
--- NOTE | 2016-10-29 11:21 | General Surgery Consult Note ---
<Aura Hidalgo - Last Filed: 10/29/16 11:22> Date of Encounter: 10/29/16 Time of Encounter: 08:45 Assessment and Plan (1) Cholecystitis, acute with cholelithiasis Current Visit: Yes Status: Acute NPO IV fluids- decrease to 75ml/hour IV antibiotics- Ceftriaxone, yl Dr. Espino consulted for evaluation- recommending laparoscopic cholecystectomy with IOC Plan for Laparoscopic cholecystectomy with IOC today with Dr. Garay Supportive care/pain control Hold Plavix Repeat am labs Qualifiers: Cholelithiasis location: gallbladder Biliary obstruction: without biliary obstruction Qualified Code(s): K80.00 - Calculus of gallbladder with acute cholecystitis without obstruction (2) Elevated LFTs Current Visit: Yes Status: Acute NPO IV fluids- decrease to 75ml/hour IV antibiotics- Ceftriaxone, yl Dr. Espino consulted for evaluation- recommending laparoscopic cholecystectomy with IOC Plan for Laparoscopic cholecystectomy with IOC today with Dr. Garay Supportive care/pain control Hold Plavix Repeat am labs (3) HTN (hypertension) Current Visit: Yes Status: Chronic Normotensive Management per medicine service Qualifiers: Hypertension type: essential hypertension Qualified Code(s): I10 - Essential (primary) hypertension (4) CAD (coronary artery disease) Current Visit: Yes Status: Chronic Qualifiers: Coronary Disease-Associated Artery/Lesion type: bypass graft [place] vs. transplanted heart: unspecified whether [place] or transplanted heart Associated angina: angina presence unspecified Qualified Code(s): I25.810 - Atherosclerosis of coronary artery bypass graft(s) without angina pectoris (5) Diabetes Current Visit: Yes Status: Chronic Blood sugars stable Management per medicine service Qualifiers: Diabetes mellitus type: type 2 Diabetes mellitus complication status: with unspecified complications Diabetes mellitus fpc insulin use: without fpc use Qualified Code(s): E11.8 - Type 2 diabetes mellitus with unspecified complications (6) ANDREW (acute kidney injury) Current Visit: Yes Status: Acute Improving 2.86>2.45 Nephrology following (7) DVT prophylaxis Current Visit: Yes Status: Acute Continue heparin 5,000 units SQ- will change to twice daily for DVT prophylaxis. History of Present Illness Consult date: 10/29/16 Reason for consult: gallstones (cholecystitis) Requesting physician: Josiah Vinson History of present illness: Mr. Mueller is a very pleasant 81 year old male with a past medical history significant for CAD, CHF, DM, HTN, HLD, CVD. He presented to the hospital with altered mental status, generalized weakness, and hyperkalemia. He also reports intermittent epigastric discomfort for the last 1-2 weeks. He cannot identify any aggrevating or alleviating factors. He states that pain is sharp and is located in his epigastric area. Denies any radiating factors. He states that he has had pains similar to this for the past several years but never to this degree. Denies any nausea/vomiting. Denies any heartburn. Admits to diarrhea for the past couple of days. Denies any melena or hematochezia. Urinating without difficulty. Denies any shortness of breath of chest pain currently. He has had an US of the RUQ which shows evidence of cholelithiasis, gallbladder wall thickening, normal size CBD. His total bilirubin is elevated at 3.4 with a direct bilirubin of 2.2 and indirect of 1.2. We have been asked to see and evaluate the patient for surgical recommendations. Past Med Surg Social Fam HX - Past Medical History Source: patient, old records reviewed Medical history: coronary artery disease, CVA, diabetes, GERD, glaucoma, hyperlipidemia, hypertension, renal disease Psychiatric history: no psych history - Past Surgical History Surgical History: carotid endarterectomy, coronary bypass (CABG) (2 vessel 5 years ago), pacemaker/AICD (pacemaker only), other (prostate surgery, right orchiectomy) - Social History Smoking Status: Former smoker Smokeless Tobacco Status: No Alcohol use: none Drug use: none Current living situation: With Family Activity Level: Independent ambulation - Family History Father Hx Family Endocrine Disorder: Yes (diabetes) Mother Hx Family Cancer: Yes (brain) Medications and Allergies Clopidogrel [Plavix] 75 mg PO DAILY 10/27/16 [History] Furosemide [Lasix] 40 mg PO DAILY 10/27/16 [History] GlipiZIDE [Glucotrol] 2.5 mg PO 3XW 10/27/16 [History] Levothyroxine [Synthroid] 25 mcg PO DAILY 10/27/16 [History] Lisinopril 2.5 mg PO DAILY 10/27/16 [History] Metoprolol Succinate 25 mg PO DAILY 10/27/16 [History] Omeprazole 20 mg PO DAILY 10/27/16 [History] Potassium Chloride [Klor-Con 10] 10 meq PO BID 10/27/16 [History] Simvastatin [Zocor] 20 mg PO DAILY 10/27/16 [History] Tamsulosin HCl [Flomax] 0.4 mg PO DAILY 10/27/16 [History] Cholecalciferol (Vitamin D3) [Vitamin D] 5,000 unit PO DAILY 10/28/16 [History] Folic Acid 1 mg PO DAILY 10/28/16 [History] Allergies No Known Allergies Allergy (Verified 10/28/16 08:41) Review of Systems All systems PM: reviewed and no additional remarkable complaints except as stated (in the HPI) All systems PM: A 10-system review of systems was performed and is negative for pertinent findings except as documented above in the HPI. General Surgery Exam Initial Vital Signs Temp Pulse Resp BP Pulse Ox 97.4 F L 62 16 122/72 99 10/27/16 22:55 10/27/16 22:55 10/27/16 22:55 10/27/16 22:55 10/27/16 22:55 - General physical appearance well developed, well nourished, no distress - Eyes normal ocular movement - ENT normal mucosa, atraumatic, normocephalic - Neck trachea midline - Respiratory normal respiratory effort, clear to auscultation - Cardiovascular Cardiovascular exam: Present: RRR, 15, 16 - Abdomen Abdomen general surgery: Present: bowel sounds present, soft, tender Abdominal Tenderness: Present: epigastic, RUQ - Integumentary Integumentary general surgery: Present: warm and dry - Neurologic Present: CN 2-12 grossly intact - Psychiatric Psychiatric general surgery: Present: appropriate, oriented to person, oriented to place, oriented to time, speech is normal, memory intact Exam Initial Vital Signs Temp Pulse Resp BP Pulse Ox 97.4 F L 62 16 122/72 99 10/27/16 22:55 10/27/16 22:55 10/27/16 22:55 10/27/16 22:55 10/27/16 22:55 Results - Labs 10/28/16 05:00 10/29/16 05:30 Abnormal lab results RBC 3.96 M/mcL (4.19-5.50) L 10/28/16 05:00 Hgb 12.4 g/dL (12.9-16.9) L 10/28/16 05:00 RDW 16.2 % (11.5-14.5) H 10/28/16 05:00 BUN 52 mg/dL (8-26) H 10/29/16 05:30 Creatinine 2.45 mg/dL (0.72-1.25) H 10/29/16 05:30 Est GFR ( Amer) 31 (> 60) L 10/29/16 05:30 Est GFR (Non-Af Amer) 25 (> 60) L 10/29/16 05:30 Calculated Osmolality 304 (280-300) H 10/29/16 05:30 Magnesium 1.3 mg/dL (1.6-2.6) L 10/28/16 05:00 Total Bilirubin 3.4 mg/dL (0.2-1.2) H 10/29/16 05:30 Direct Bilirubin 2.2 mg/dL (0.0-0.5) H 10/28/16 12:08 AST 76 Units/L (5-34) H 10/29/16 05:30 ALT 61 Units/L (0-55) H 10/29/16 05:30 Alkaline Phosphatase 569 Units/L (38-126) H 10/29/16 05:30 Serum Total Protein 5.5 g/dL (6.0-8.3) L 10/29/16 05:30 Albumin 2.4 g/dL (3.5-5.0) L 10/29/16 05:30 Albumin/Globulin Ratio 0.8 (1.1-2.2) L 10/29/16 05:30 Ur Specimen Adequacy See below A 10/28/16 12:31 Acetaminophen < 1.0 mcg/mL (10-30) L 10/28/16 05:00 Diabetes panel 10/28/16 10/29/16 Range/Units 12:08 05:30 Sodium 145 140 (136-145) mEq/L Potassium 4.2 3.9 (3.5-4.5) mEq/L Chloride 112 H 108 (98-109) mEq/L Carbon Dioxide 24 23 (19-29) mEq/L BUN 63 H 52 H (8-26) mg/dL Creatinine 2.86 H 2.45 H (0.72-1.25) mg/dL Glucose 101 H 97 (70-99) mg/dL Calcium 9.0 8.8 (8.6-10.8) mg/dL AST 85 H 76 H (5-34) Units/L ALT 66 H 61 H (0-55) Units/L Alkaline Phosphatase 614 H 569 H (38-126) Units/L Albumin 2.4 L 2.4 L (3.5-5.0) g/dL Calcium panel 10/28/16 10/29/16 Range/Units 12:08 05:30 Calcium 9.0 8.8 (8.6-10.8) mg/dL Albumin 2.4 L 2.4 L (3.5-5.0) g/dL Pituitary panel 10/28/16 10/29/16 Range/Units 12:08 05:30 Sodium 145 140 (136-145) mEq/L Potassium 4.2 3.9 (3.5-4.5) mEq/L Chloride 112 H 108 (98-109) mEq/L Carbon Dioxide 24 23 (19-29) mEq/L BUN 63 H 52 H (8-26) mg/dL Creatinine 2.86 H 2.45 H (0.72-1.25) mg/dL Glucose 101 H 97 (70-99) mg/dL Calcium 9.0 8.8 (8.6-10.8) mg/dL Adrenal panel 10/28/16 10/29/16 Range/Units 12:08 05:30 Sodium 145 140 (136-145) mEq/L Potassium 4.2 3.9 (3.5-4.5) mEq/L Chloride 112 H 108 (98-109) mEq/L Carbon Dioxide 24 23 (19-29) mEq/L BUN 63 H 52 H (8-26) mg/dL Creatinine 2.86 H 2.45 H (0.72-1.25) mg/dL Glucose 101 H 97 (70-99) mg/dL Calcium 9.0 8.8 (8.6-10.8) mg/dL Total Bilirubin 3.4 H 3.4 H (0.2-1.2) mg/dL AST 85 H 76 H (5-34) Units/L ALT 66 H 61 H (0-55) Units/L Alkaline Phosphatase 614 H 569 H (38-126) Units/L Albumin 2.4 L 2.4 L (3.5-5.0) g/dL All other labs normal. - Imaging Additional studies: Retroperitoneum Ultrasound 10/28/16 16:00 IMPRESSION: 1. No hydronephrosis. 2. Mild left renal atrophy with increased echogenicity suggesting chronic medical renal disease. 3. Bilateral renal cysts measuring up to 2.1 cm. 4. Bladder wall is trabeculated with multiple small diverticula, a finding which can be seen with neurogenic bladder. D/ / Layo Ambriz MD / Layo Ambriz MD Interpreting Provider: Layo Abmriz MD Gallbladder Ultrasound 10/28/16 16:30 IMPRESSION: 1. Cholelithiasis with mild to moderate gallbladder wall thickening but negative sonographic [place]'s sign. Findings are equivocal for acute cholecystitis. Consider further evaluation with HIDA scan if clinically indicated. 2. Mild right renal atrophy with a 1.8 cm cyst. No hydronephrosis. D/ / Layo Ambriz MD / Layo Ambriz MD Interpreting Provider: Layo Ambriz MD Consult Discharge Plan - Plan Referrals: Angie Austin CNP [Primary Care Provider] - 11/05/16 9:00 am - Attending Attestation I examined this patient and my medical decision-making was reviewed with the GAS CUTTING MACHINE OPERATOR/PA/Advanced Practice Nurse/Resident Physician. I agree with the documented findings, disposition and treatment plan as described except to the extent set forth below. <Boubacar Garay - Last Filed: 10/29/16 19:28> Review of Systems All systems PM: A 10-system review of systems was performed and is negative for pertinent findings except as documented above in the HPI. General Surgery Exam Initial Vital Signs Temp Pulse Resp BP Pulse Ox 97.4 F L 62 16 122/72 99 10/27/16 22:55 10/27/16 22:55 10/27/16 22:55 10/27/16 22:55 10/27/16 22:55 Exam Initial Vital Signs Temp Pulse Resp BP Pulse Ox 97.4 F L 62 16 122/72 99 10/27/16 22:55 10/27/16 22:55 10/27/16 22:55 10/27/16 22:55 10/27/16 22:55 Results - Labs 10/28/16 05:00 10/29/16 05:30 Abnormal lab results RBC 3.96 M/mcL (4.19-5.50) L 10/28/16 05:00 Hgb 12.4 g/dL (12.9-16.9) L 10/28/16 05:00 RDW 16.2 % (11.5-14.5) H 10/28/16 05:00 BUN 52 mg/dL (8-26) H 10/29/16 05:30 Creatinine 2.45 mg/dL (0.72-1.25) H 10/29/16 05:30 Est GFR ( Amer) 31 (> 60) L 10/29/16 05:30 Est GFR (Non-Af Amer) 25 (> 60) L 10/29/16 05:30 Calculated Osmolality 304 (280-300) H 10/29/16 05:30 Magnesium 1.3 mg/dL (1.6-2.6) L 10/28/16 05:00 Total Bilirubin 3.4 mg/dL (0.2-1.2) H 10/29/16 05:30 Direct Bilirubin 2.2 mg/dL (0.0-0.5) H 10/28/16 12:08 AST 76 Units/L (5-34) H 10/29/16 05:30 ALT 61 Units/L (0-55) H 10/29/16 05:30 Alkaline Phosphatase 569 Units/L (38-126) H 10/29/16 05:30 Serum Total Protein 5.5 g/dL (6.0-8.3) L 10/29/16 05:30 Albumin 2.4 g/dL (3.5-5.0) L 10/29/16 05:30 Albumin/Globulin Ratio 0.8 (1.1-2.2) L 10/29/16 05:30 Ur Specimen Adequacy See below A 10/28/16 12:31 Acetaminophen < 1.0 mcg/mL (10-30) L 10/28/16 05:00 Diabetes panel 10/29/16 Range/Units 05:30 Sodium 140 (136-145) mEq/L Potassium 3.9 (3.5-4.5) mEq/L Chloride 108 (98-109) mEq/L Carbon Dioxide 23 (19-29) mEq/L BUN 52 H (8-26) mg/dL Creatinine 2.45 H (0.72-1.25) mg/dL Glucose 97 (70-99) mg/dL Calcium 8.8 (8.6-10.8) mg/dL AST 76 H (5-34) Units/L ALT 61 H (0-55) Units/L Alkaline Phosphatase 569 H (38-126) Units/L Albumin 2.4 L (3.5-5.0) g/dL Calcium panel 10/29/16 Range/Units 05:30 Calcium 8.8 (8.6-10.8) mg/dL Albumin 2.4 L (3.5-5.0) g/dL Pituitary panel 10/29/16 Range/Units 05:30 Sodium 140 (136-145) mEq/L Potassium 3.9 (3.5-4.5) mEq/L Chloride 108 (98-109) mEq/L Carbon Dioxide 23 (19-29) mEq/L BUN 52 H (8-26) mg/dL Creatinine 2.45 H (0.72-1.25) mg/dL Glucose 97 (70-99) mg/dL Calcium 8.8 (8.6-10.8) mg/dL Adrenal panel 10/29/16 Range/Units 05:30 Sodium 140 (136-145) mEq/L Potassium 3.9 (3.5-4.5) mEq/L Chloride 108 (98-109) mEq/L Carbon Dioxide 23 (19-29) mEq/L BUN 52 H (8-26) mg/dL Creatinine 2.45 H (0.72-1.25) mg/dL Glucose 97 (70-99) mg/dL Calcium 8.8 (8.6-10.8) mg/dL Total Bilirubin 3.4 H (0.2-1.2) mg/dL AST 76 H (5-34) Units/L ALT 61 H (0-55) Units/L Alkaline Phosphatase 569 H (38-126) Units/L Albumin 2.4 L (3.5-5.0) g/dL All other labs normal. - Attending Attestation Boubacar Garay MD FACS
[2016-10-29 11:39] LABS: Hepatitis B Core IgM Nonreactive (Nonreactive); Hepatitis B Surface Antigen Nonreactive (Nonreactive); Hepatitis C Virus Antibody Nonreactive (Nonreactive)
[2016-10-29 11:42] LABS: Hepatitis A Antibody IgM Nonreactive (Nonreactive)
[2016-10-29] MEDS ORDERED: *HR* Heparin 5,000 UNIT/ML VIAL SQ SCH (12:00)
[2016-10-29] MEDS ORDERED: *HR* Propofol 200 MG/20 ML VIAL IVP ONE (17:23)
[2016-10-29] MEDS ORDERED: *HR* FentaNYL (PF) 100 MCG/2 ML VIAL ONE ×2 (17:23→19:12)
[2016-10-29] MEDS ORDERED: Lidocaine -MPF 2% 2 ML VIAL ONE (17:24)
[2016-10-29] MEDS ORDERED: *HR* Rocuronium Bromide 50 MG/5 ML VIAL ONE (17:24)
[2016-10-29] MEDS ORDERED: Lidocaine -MPF 4% 5 ML AMPUL ONE (17:29)
--- NOTE | 2016-10-29 17:49 | Anesthesia Evaluation PreOp ---
Date of Encounter: 10/29/16 Time of Encounter: 17:45 - Past History Planned Operation: Lap Cholecystectomy Cardiac History: HTN, Hyperlipidemia, Arrhythmia (Sick Sinus Syndrome), Cardiac Surgery (CABG), Pacemaker/ICD Pulmonary History: Former smoker BUSINESS DEVELOPMENT CONSULTANT History: CVA Other Medical History: Renal (CKD), Diabetes Type II Anesthesia History: No Prior Anesthetic Complications Alcohol Use: none Drug use: none Medications and Allergies Clopidogrel [Plavix] 75 mg PO DAILY 10/27/16 [History] Furosemide [Lasix] 40 mg PO DAILY 10/27/16 [History] GlipiZIDE [Glucotrol] 2.5 mg PO 3XW 10/27/16 [History] Levothyroxine [Synthroid] 25 mcg PO DAILY 10/27/16 [History] Lisinopril 2.5 mg PO DAILY 10/27/16 [History] Metoprolol Succinate 25 mg PO DAILY 10/27/16 [History] Omeprazole 20 mg PO DAILY 10/27/16 [History] Potassium Chloride [Klor-Con 10] 10 meq PO BID 10/27/16 [History] Simvastatin [Zocor] 20 mg PO DAILY 10/27/16 [History] Tamsulosin HCl [Flomax] 0.4 mg PO DAILY 10/27/16 [History] Cholecalciferol (Vitamin D3) [Vitamin D] 5,000 unit PO DAILY 10/28/16 [History] Folic Acid 1 mg PO DAILY 10/28/16 [History] Allergies No Known Allergies Allergy (Verified 10/28/16 08:41) - Meds/Allergy Pre-op Review Medications Reviewed: Yes Allergies Reviewed: Yes Beta Blockers on Current Med List: No Anesthesia Results - Labs 10/28/16 05:00 10/29/16 05:30 - Imaging Additional studies: EF 30% Anesthesia Exam O2 Sat Weight 69 kg O2 Sat by Pulse Oximetry 97 O2 Sat by Pulse Oximetry 99 O2 Sat by Pulse Oximetry 99 O2 Sat by Pulse Oximetry 99 O2 Sat by Pulse Oximetry 98 Vital Signs Temp Pulse Resp BP Pulse Ox 97.4 F L 62 16 122/72 99 10/27/16 22:55 10/27/16 22:55 10/27/16 22:55 10/27/16 22:55 10/27/16 22:55 Height: 5'9 Weight: 152 lbs NPO (# of Hours): MN - HEENT Pupil (Motor): Pupils equal, EOMI Mallampati: III Teeth: Edentulous Oral Opening: Less than or equal to 3 - BUSINESS DEVELOPMENT CONSULTANT LOC: Oriented BUSINESS DEVELOPMENT CONSULTANT Motor: Normal RUE, Normal LUE, Normal RLE, Normal LLE, Normal Face BUSINESS DEVELOPMENT CONSULTANT Sensory: Normal: RUE, LUE, RLE, LLE, Face - Cardiac Rhythm: Regular Murmur: None JVD: No Carotid Bruit: No - Pulmonary Breath Sounds: bilateral Clear Respiratory Effort: Symmetrical Anesthesia Assess/Plan ASA Score: 4 Modified Rafal Scale for Level of Consciousness: Cooperative, oriented, and tranquil Anesthetic Plan: General Monitoring Plan: Standard Monitors Recovery Plan: PACU (Discussed GA, agrees to proceed)
[2016-10-29] MEDS ORDERED: Heparin 1,000 UNITS/500 mL NS 500 ML ONE (17:52)
[2016-10-29] MEDS ORDERED: *HR* Etomidate 40 MG/20 ML VIAL IVP ONE (17:58)
[2016-10-29] MEDS ORDERED: Acetaminophen IV 1,000 MG/100 ML INFUS..BTL ONE (18:32)
[2016-10-29] MEDS ORDERED: Ondansetron 4 MG/2 ML VIAL ONE (18:32)
[2016-10-29] MEDS ORDERED: *HR* Promethazine 25 MG/ML VIAL IVP PRN ×2 (18:38→20:42)
[2016-10-29] MEDS ORDERED: *HR* HYDROmorphone (PF) 1 MG/ML SYRINGE IVP PRN ×2 (18:38→20:42)
[2016-10-29] MEDS ORDERED: *HR* Phenylephrine 10 MG/ML VIAL ONE (18:56)
[2016-10-29] MEDS ORDERED: Neostigmine Methylsulfate 3 MG/3 ML SYRINGE ONE (19:18)
--- NOTE | 2016-10-29 19:38 | Operative Note ---
Date of procedure: 10/29/16 Pre-op diagnosis: Acute cholecystitis and cholelithiasis. Abnormal liver function tests Post-op diagnosis: other (Severe acute and chronic cholecystitis, choledocholithiasis) Procedure: Laparoscopic cholecystectomy, cholangiogram (+30% for severe inflammation, duration of dissection, and intracorporeal suturing to secure the cystic duct) Anesthesia: CHRISTI Surgeon: Boubacar Garay Estimated blood loss (cc): 50 Specimen: Gallbladder and contents Condition: stable Disposition: PACU Procedure in Detail: Laparoscopic cholecystectomy and intraoperative cholangiogram (+30% for duration of dissection, acute and chronic inflammation, and intracorporeal suturing to secure the cystic duct) Operative procedure after informed consent and appropriate patient identification timeout the patient's take major operating suite and placed supine position given adequate general endotracheal anesthesia the abdomen is prepped and draped in sterile fashion utilizing ChloraPrep standard draping techniques timeout was taken patient is identified. I made a vertical midline incision below the umbilicus dissected down to level of fascia there are 2 traction stitches placed in the abdominal cavity was entered visually. A Dietrich trocar was placed in the abdomen and the abdomen was insufflated to 15 mmHg pressure CO2 the gallbladder was visualized. A placement 11 port in the subxiphoid area and 25 mm ports in the subcostal area. The gallbladder was contracted and completely encased in acute and chronic inflammation. 20 minutes was necessary just to mobilize the omentum off the edge of the liver and gallbladder to identify the dome of the gallbladder. Another 20 minutes was necessary to identify the neck of the gallbladder. The gallbladder was grasped and elevated. A variety of blunt and sharp dissection techniques were used to isolate the cystic duct and cystic artery. The cystic duct was short chronically inflamed and adherent to the common bile duct. During the dissection the cystic duct common bile duct junction was traumatized. The cystic artery was controlled with 2 surgical clips proximally and one distally and it was divided I placed a surgical clip on the neck the gallbladder and obtained an intraoperative cholangiogram through the opening at the distal cystic duct. using 10 mL of Isovue. Intraoperative cholangiogram demonstrated normal ductal anatomy with distal dilatation and choledocholithiasis with at least 3 stones. There was no extravasation. The cholangiocatheter was removed and the cystic duct was controlled with an intracorporeal stitch of 0 Vicryl to secure the base of the cystic duct at its junction with the common bile duct. A 0 Vicryl [id number] stitch was used. 2 surgical clips were used to secure the duct on either side of the stitch. The cystic duct was then divided. the gallbladder was removed from the gallbladder fossae using electrocautery. The dissection was tremendously difficult due to acute and chronic inflammation and took 20 minutes. The gallbladder was removed through the #11 port site. I replaced the #11 port and irrigated with copious amounts of antibiotic containing solution. A #10 Rommel -Hart drain was placed in the dissection bed at the gallbladder fossa. There is no evidence of bleeding or bile leak. All trochars were removed. Fascia was closed with 0 Vicryl skin with 2-0 and 4-0 Vicryl he tolerated the procedure well and was transferred to recovery in stable condition
[2016-10-29] MEDS ORDERED: Ketorolac 15 MG/ML VIAL IVP ONE (20:05)
--- NOTE | 2016-10-29 20:15 | Anesthesia Evaluation Post Op ---
Date of Encounter: 10/29/16 Time of Encounter: 20:14 - Vital Signs Vital Signs: Vital Signs/O2 Sat/Glucose, Most Current Temp Pulse Resp BP Pulse Ox 10/29/16 20:12 97.5 F L 60 18 116/61 94 L 10/29/16 20:02 63 18 108/51 96 10/29/16 19:52 90 16 114/48 94 L 10/29/16 19:47 64 16 99/53 96 10/29/16 19:42 97.0 F L 63 12 109/57 99 - Lungs Lungs: Clear Ascult./Percussion - Airway Airway: Non-obstructed - Cardiovascular Regular Rate - Mental Status Mental Status: Alert & Oriented, Answers Appropriately - Pain Pain Scale: 2 Pain Scale used: Numeric (1 - 10) - Nausea Vomiting Nausea Vomiting: Not Present - Hydration Hydration: Ice chips, Has not voided - Discharge PostOp Status: Transfer Patient to floor Anes Supervising Prov Stmt: Pt seen/evaluated, VSS and pt has met criteria for discharge to floor. - MD Jeancarlos
[2016-10-29] MEDS ORDERED: Dextrose Gel 15 GM PO PRN ×2 (20:42)
[2016-10-29] MEDS ORDERED: *HR* Dextrose 50 % in Water (Syg) 50 ML SYRINGE IVP PRN (20:42)
[2016-10-29] MEDS ORDERED: Naloxone 0.4 MG/ML INJ IVP PRN (20:42)
[2016-10-29] MEDS ORDERED: Ondansetron 4 MG/2 ML VIAL IVP PRN (20:42)
[2016-10-29] MEDS ORDERED: D5% in Water 1,000 ML IV PRN (20:42)
[2016-10-29] MEDS ORDERED: Insulin LISPRO 300 UNITS/3 ML VIAL SQ SCH (21:00)
[2016-10-29] MEDS ORDERED: 0.9 % Sodium Chloride 1,000 ML IVC ONE (21:59)
--- NOTE | 2016-10-29 22:29 | Event Note ---
Date of Encounter: 10/29/16 Time of Encounter: 22:26 Called to see patient for low BP and hypothermia. Pt awake alert, dry, responds appropriately. He has mild abdominal/incisional pain. I ordered NS bolus. I am transferring him to ICU. I called and discussed with Dr. Garay since he just had his surgery. Dr. Graay agreed with my plan. He also requested I call Dr. Espino as he believes pt will need ERCP in the morning. He agreed with my plan to treat with antibiotics, IVF, pressors if necessary. I will contact Dr. Espino shortly.
--- NOTE | 2016-10-29 22:42 | Event Note ---
Date of Encounter: 10/29/16 Time of Encounter: 22:41 Dr. Espino notified. Plan for ERCP in the morning. I will update him with lab results.
[2016-10-29 22:48] LABS: Basophils % 0.1 %; Eosinophils # 0.1 K/mcL (0.0-0.6); Eosinophils % 0.8 %; Hematocrit 33.3 % (37.5-50.1); Hemoglobin 10.7 g/dL (12.9-16.9); Immature Granulocytes % 0.6 % (0-4); Lymphocytes # 0.9 K/mcL (0.6-4.6); Lymphocytes % 10.8 %; Mean Corpuscular HGB Conc 32.1 g/dL (31.6-35.5); Mean Corpuscular Hemoglobin 31.6 pg (28.0-33.3); Mean Corpuscular Volume 98.2 fL (83.0-100.0); Mean Platelet Volume 11.2 fL (9.4-12.4); Monocytes # 0.4 K/mcL (0.0-1.3); Neutrophils # 7.2 K/mcL (1.6-8.9); Platelet Count 129 K/mcL (140-400); Red Blood Count 3.39 M/mcL (4.19-5.50); Red Cell Distribution Width 15.9 % (11.5-14.5); Segmented Neutrophils % 82.7 %
[2016-10-29] MEDS: 0.9 % Sodium Chloride 1,000 ML IVC SCH (23:37)
[2016-10-30 00:49] LABS: Albumin 2.3 g/dL (3.5-5.0); Albumin/Globulin Ratio 0.8 (1.1-2.2); Bilirubin,Total 3.1 mg/dL (0.2-1.2); Calcium 8.1 mg/dL (8.6-10.8); Globulin 2.8 g/dL (2.4-3.5); Potassium 3.8 mEq/L (3.5-4.5); Total Protein 5.1 g/dL (6.0-8.3)
[2016-10-30 01:32] LABS: Hematocrit 32.9 % (37.5-50.1); Hemoglobin 9.9 g/dL (12.9-16.9); Mean Corpuscular HGB Conc 30.1 g/dL (31.6-35.5); Mean Corpuscular Hemoglobin 31.3 pg (28.0-33.3); Mean Corpuscular Volume 104.1 fL (83.0-100.0); Platelet Count 150 K/mcL (140-400); Red Blood Count 3.16 M/mcL (4.19-5.50); Red Cell Distribution Width 15.9 % (11.5-14.5)
[2016-10-30 02:20] LABS: Lymphocytes # 0.9 K/mcL (0.6-4.6); Neutrophils # 10.2 K/mcL (1.6-8.9); Platelet Estimate Normal (Normal)
[2016-10-30] MEDS ORDERED: 0.9 % Sodium Chloride 1,000 ML IVC ONE (02:43)
[2016-10-30] MEDS ORDERED: Piperacillin/Tazobactam 3.375 GM in D5% in Water (Mini-Bag+) 100 ML IVPB SCH (06:00)
[2016-10-30 08:54] LABS: Basophils % 0.1 %; Eosinophils % 0.1 %; Hematocrit 27.2 % (37.5-50.1); Immature Granulocytes % 0.6 % (0-4); Lymphocytes # 0.6 K/mcL (0.6-4.6); Mean Corpuscular HGB Conc 31.6 g/dL (31.6-35.5); Mean Corpuscular Hemoglobin 31.4 pg (28.0-33.3); Mean Corpuscular Volume 99.3 fL (83.0-100.0); Mean Platelet Volume 11.4 fL (9.4-12.4); Monocytes # 0.6 K/mcL (0.0-1.3); Monocytes % 4.1 %; Neutrophils # 12.7 K/mcL (1.6-8.9); Platelet Count 103 K/mcL (140-400); Red Blood Count 2.74 M/mcL (4.19-5.50); Segmented Neutrophils % 91.1 %
[2016-10-30 08:56] LABS: Hemoglobin 8.6 g/dL (12.9-16.9)
--- NOTE | 2016-10-30 08:59 | General Surgery Progress Note ---
Date of Encounter: 10/30/16 Time of Encounter: 08:50 - Assessment and Plan (1) Choledocholithiasis with acute cholecystitis with obstruction Current Visit: Yes Status: Acute The patient had preoperative evidence of common bile duct obstruction with elevated bilirubin. He also had acute cholecystitis. He underwent laparoscopic cholecystectomy and intraoperative cholangiogram. The cholangiogram demonstrated 3 large common bile duct stones. He did require intraoperative suture closure of the cystic duct. He experienced postoperative bleeding secondary to Plavix. This was treated successfully with volume resuscitation in the intensive care unit. He is transferred out of the intensive care unit today. We will plan on maintaining clear liquids and nothing by mouth after midnight for ERCP tomorrow. Subjective Narrative: The patient underwent laparoscopic cholecystectomy and intraoperative cholangiogram yesterday. The surgery was tremendously difficult with acute and chronic inflammation. He required suture closure of the cystic duct opening. He has 3 large stones in his distal common bile duct. I consult Dr. moody and had a follow-up conversation. We will plan ERCP tomorrow. Last night the patient had evidence of bleeding and hypotension. This was likely related to Plavix. He was transferred to the intensive care unit and given volume resuscitation. He responded very well and did not require red blood cell transfusion. I did however transfuse fresh frozen plasma even though this is not associated with reversal of bleeding associated with Plavix. Fortunately, the bleeding ceased after the fresh frozen plasma and the patient's hemoglobin and hematocrit is stable. We will move him back out of the ICU today. He will be maintained on clear liquids. We will plan ERCP tomorrow. Objective Vital Signs - Last 8 Hours Temp Pulse Resp BP Pulse Ox 10/30/16 07:50 97.9 F 10/30/16 06:46 98.4 F 66 16 109/50 99 10/30/16 06:00 68 18 109/50 98 10/30/16 05:00 59 14 103/52 99 10/30/16 04:50 97.7 F 59 16 98/46 96 10/30/16 04:35 97.7 F 65 16 106/52 99 10/30/16 04:00 61 16 104/55 97 10/30/16 03:00 60 14 104/49 98 10/30/16 02:00 62 16 74/43 98 10/30/16 01:00 59 14 70/55 96 Intake and Output 10/29/16 10/30/16 10/30/16 23:59 07:59 15:59 Intake Total 1000 / 1000 1400 / 1400 Output Total 668 / 668 505 / 505 Balance 332 / 332 895 / 895 Intake: IV Fluids 1000 / 1000 1100 / 1100 0.9 % Sodium Chloride 1, 1000 / 1000 1000 / 1000 000 ML @ 3750 mls/hr IVC .Q16M [facility] Rx#:[id number] Flagyl 500 MG/100 ML 500 100 / 100 mg In 100 ml @ 100 mls/hr IVPB Q8HR [facility] Rx#: [id number] Blood Product 300 / 300 Plasma Unit 300 / 300 [id number] Output: Urine 225 / 225 Estimated Blood Loss 3 / 3 Catheter 125 / 125 125 / 125 Wound Drainage 315 / 315 380 / 380 Left Upper Abdomen 120 / 120 Right Upper Abdomen 155 / 155 380 / 380 Other: Blood Glucose* 87 50 - General physical appearance well developed, well nourished, chronically ill - Respiratory normal expansion, normal respiratory effort, clear to percussion, clear to auscultation - Cardiovascular Cardiovascular exam: Present: RRR, no murmurs/rubs/gallops - Abdomen Additional Comments: Incision is clean and dry. He does have sanguinous material in his Rommel- Hart drain with no evidence of bile. - Neurologic normal coordination, normal sensation - Psychiatric oriented to time, oriented to person, oriented to place, speech is normal, memory intact - Labs 10/30/16 00:29 10/30/16 00:27 Diabetes panel 10/30/16 Range/Units 00:27 Sodium 143 (136-145) mEq/L Potassium 3.8 (3.5-4.5) mEq/L Chloride 116 H (98-109) mEq/L Carbon Dioxide 16 L (19-29) mEq/L BUN 45 H (8-26) mg/dL Creatinine 2.24 H (0.72-1.25) mg/dL Glucose 95 (70-99) mg/dL Calcium 8.1 L (8.6-10.8) mg/dL AST 81 H (5-34) Units/L ALT 62 H (0-55) Units/L Alkaline Phosphatase 460 H (38-126) Units/L Albumin 2.3 L (3.5-5.0) g/dL Calcium panel 10/30/16 Range/Units 00:27 Calcium 8.1 L (8.6-10.8) mg/dL Albumin 2.3 L (3.5-5.0) g/dL Pituitary panel 10/30/16 Range/Units 00:27 Sodium 143 (136-145) mEq/L Potassium 3.8 (3.5-4.5) mEq/L Chloride 116 H (98-109) mEq/L Carbon Dioxide 16 L (19-29) mEq/L BUN 45 H (8-26) mg/dL Creatinine 2.24 H (0.72-1.25) mg/dL Glucose 95 (70-99) mg/dL Calcium 8.1 L (8.6-10.8) mg/dL Adrenal panel 10/30/16 Range/Units 00:27 Sodium 143 (136-145) mEq/L Potassium 3.8 (3.5-4.5) mEq/L Chloride 116 H (98-109) mEq/L Carbon Dioxide 16 L (19-29) mEq/L BUN 45 H (8-26) mg/dL Creatinine 2.24 H (0.72-1.25) mg/dL Glucose 95 (70-99) mg/dL Calcium 8.1 L (8.6-10.8) mg/dL Total Bilirubin 3.1 H (0.2-1.2) mg/dL AST 81 H (5-34) Units/L ALT 62 H (0-55) Units/L Alkaline Phosphatase 460 H (38-126) Units/L Albumin 2.3 L (3.5-5.0) g/dL Consult Discharge Plan - Plan Referrals: Angie Austin CNP [Primary Care Provider] - 11/05/16 9:00 am
[2016-10-30] MEDS ORDERED: Metoprolol XL (24 HR) Succ 25 MG TAB.ER.24H PO SCH ×2 (09:00)
[2016-10-30] MEDS ORDERED: Pantoprazole 40 MG VIAL IV SCH (09:00)
[2016-10-30] MEDS ORDERED: Furosemide 40 MG TABLET PO SCH (09:00)
[2016-10-30] MEDS ORDERED: Cholecalciferol (D-3) 1,000 UNIT TABLET PO SCH (09:00)
[2016-10-30] MEDS ORDERED: Folic Acid 1 MG TABLET PO SCH (09:00)
[2016-10-30] MEDS ORDERED: Levothyroxine 25 MCG TABLET PO SCH (09:00)
--- NOTE | 2016-10-30 09:03 | Nephrology Progress Note ---
Date of Encounter: 10/30/16 Time of Encounter: 08:25 - Assessment and Plan (1) ANDREW (acute kidney injury) Current Visit: Yes Status: Acute S/P bravo. Renal fct at patient baseline. Urine output 900 cc. Possible ERCP today. Subjective Interval history: Was transferred to ICU for hypotension and hypothermia following. cholecystectomy. Alert, oriented x 3. States feels good, not having much discomfort. Objective - Vital Signs Vital signs: Vital Signs Temp Pulse Resp BP Pulse Ox 10/30/16 07:50 97.9 F 10/30/16 06:46 98.4 F 66 16 109/50 99 10/30/16 06:00 68 18 109/50 98 10/30/16 05:00 59 14 103/52 99 10/30/16 04:50 97.7 F 59 16 98/46 96 10/30/16 04:35 97.7 F 65 16 106/52 99 10/30/16 04:00 61 16 104/55 97 10/30/16 03:00 60 14 104/49 98 10/30/16 02:00 62 16 74/43 98 10/30/16 01:00 59 14 70/55 96 10/30/16 00:00 97.0 F L 60 14 88/51 98 10/29/16 23:00 60 14 92/49 98 10/29/16 22:45 96.5 F L 60 14 106/54 98 10/29/16 22:20 95.0 F L 60 12 95/49 93 L 10/29/16 22:05 61 91/51 10/29/16 22:00 60 77/49 10/29/16 21:55 59 85/39 10/29/16 21:50 59 82/36 10/29/16 21:45 60 74/37 10/29/16 21:20 95.8 F L 63 12 88/43 99 10/29/16 20:50 94.7 F L 58 16 90/48 95 10/29/16 20:28 96.6 F L 60 16 111/63 96 10/29/16 20:22 97.5 F L 62 18 112/67 96 10/29/16 20:20 96.6 F L 60 16 111/63 96 10/29/16 20:12 97.5 F L 60 18 116/61 94 L 10/29/16 20:02 63 18 108/51 96 10/29/16 19:52 90 16 114/48 94 L 10/29/16 19:47 64 16 99/53 96 10/29/16 19:42 97.0 F L 63 12 109/57 99 10/29/16 15:57 97.5 F L 60 14 101/59 97 10/29/16 11:31 97.5 F L 60 14 101/60 99 Intake and Output 10/29/16 10/30/16 10/30/16 23:59 07:59 15:59 Intake Total 1000 / 1000 1400 / 1400 Output Total 668 / 668 505 / 505 Balance 332 / 332 895 / 895 Intake: IV Fluids 1000 / 1000 1100 / 1100 0.9 % Sodium Chloride 1, 1000 / 1000 1000 / 1000 000 ML @ 3750 mls/hr IVC .Q16M [facility] Rx#:[id number] Flagyl 500 MG/100 ML 500 100 / 100 mg In 100 ml @ 100 mls/hr IVPB Q8HR [facility] Rx#: [id number] Blood Product 300 / 300 Plasma Unit 300 / 300 [id number] Output: Urine 225 / 225 Estimated Blood Loss 3 / 3 Catheter 125 / 125 125 / 125 Wound Drainage 315 / 315 380 / 380 Left Upper Abdomen 120 / 120 Right Upper Abdomen 155 / 155 380 / 380 Other: Blood Glucose* 87 50 - General Appearance General appearance: Present: well-developed, well-nourished, appears started age EENT: Present: mucous membranes moist Neck: Present: no JVD Respiratory: Present: clear Cardiology: Present: no edema, regular rate, regular rhythm Gastrointestinal: Present: absent bowel sounds, tenderness Integumentary: Present: warm and dry Neurologic: Present: alert and oriented x3 Psychiatric: Present: mood/affect appropriate, cooperative - Lab 10/30/16 08:40 10/30/16 00:27 Most recent lab results Calcium 8.1 mg/dL (8.6-10.8) L 10/30/16 00:27 Phosphorus 3.8 mg/dL (2.3-4.7) 10/28/16 05:00 Magnesium 1.3 mg/dL (1.6-2.6) L 10/28/16 05:00 Consult Discharge Plan - Plan Referrals: Angei Austin CNP [Primary Care Provider] - 11/05/16 9:00 am
[2016-10-30 09:11] LABS: Albumin 2.2 g/dL (3.5-5.0); Albumin/Globulin Ratio 0.9 (1.1-2.2); Bilirubin,Total 2.9 mg/dL (0.2-1.2); Globulin 2.5 g/dL (2.4-3.5); Potassium 4.2 mEq/L (3.5-4.5); Total Protein 4.7 g/dL (6.0-8.3)
[2016-10-30] MEDS: Magnesium Oxide 400 MG TABLET PO SCH ×2 (09:12→21:37)
[2016-10-30] MEDS: MetroNIDAZOLE 500 MG/100 ML 500 MG/100 ML BAG IVPB SCH ×2 (09:12→16:32)
[2016-10-30] MEDS: Insulin LISPRO 300 UNITS/3 ML VIAL SQ SCH ×4 (09:14→21:37)
[2016-10-30] MEDS: 0.9 % Sodium Chloride 1,000 ML IVC SCH ×2 (09:15→16:31)
--- NOTE | 2016-10-30 10:13 | Pulmonology Consult Note ---
<Jacquelyn Henry - Last Filed: 10/30/16 10:11> Date of Encounter: 10/30/16 Time of Encounter: 07:15 Assessment and Plan (1) Choledocholithiasis with acute cholecystitis with obstruction Current Visit: Yes Status: Acute POD#1 s/p laparoscopic cholecystectomy Pt experienced postoperative bleeding secondary to plavix which was treated successfully with volume resuscitation SUSHMA drain in place Preop evidence of common bile duct obstruction with elevated bilirubin Intraoperative cholangiogram demonstrated 3 large common bile duct stones NPO at midnight Plan for ERCP tomorrow with Dr. Espino (2) ANDREW (acute kidney injury) Current Visit: Yes Status: Acute Acute on Chronic Renal failure stage III, improving Hold lasix and lisinopril Nephrology has been consulted, appreciate recommendation Continue to monitor labs (3) Toxic metabolic encephalopathy Current Visit: Yes Status: Resolved Likely secondary to acute cholecystitis and possibly related to acute on chronic renal failure CT head normal, demonstrated old stroke in right parietal-occipital area Ammonia normal US demonstrated cholelithiasis with moderate gallbladder wall thickening Lap bravo yesterday Pt is AAOx3 this morning (4) Elevated LFTs Current Visit: Yes Status: Acute Hyperbilirubinemia, likely related to cholelithiasis/cholecystitis Plan for ERCP tomorrow by Dr. Espino as 3 large stones were seen on cholangiogram (5) Diabetes Current Visit: Yes Status: Chronic SSI insulin during hospital stay Monitor glucose and adjust medications as needed Qualifiers: Diabetes mellitus type: type 2 Diabetes mellitus complication status: with unspecified complications Diabetes mellitus skilled nursing insulin use: without marine oil terminal superintendent use Qualified Code(s): E11.8 - Type 2 diabetes mellitus with unspecified complications (6) Hyperkalemia Current Visit: No Status: Resolved (7) Systolic CHF Current Visit: Yes Status: Acute EF 30-35% with history of ischemic cardiomyopathy No exacerbation Qualifiers: Congestive heart failure chronicity: unspecified congestive heart failure chronicity Qualified Code(s): I50.20 - Unspecified systolic (congestive) heart failure (8) BPH (benign prostatic hyperplasia) Current Visit: Yes Status: Acute Qualifiers: Prostatic enlargement morphology: unspecified morphology Lower urinary tract symptom presence: presence of symptoms unspecified Qualified Code(s): N40.0 - Benign prostatic hyperplasia without lower urinary tract symptoms (9) Weakness Current Visit: Yes Status: Acute (10) CAD (coronary artery disease) Current Visit: Yes Status: Chronic Qualifiers: Coronary Disease-Associated Artery/Lesion type: bypass graft [place] vs. transplanted heart: unspecified whether [place] or transplanted heart Associated angina: angina presence unspecified Qualified Code(s): I25.810 - Atherosclerosis of coronary artery bypass graft(s) without angina pectoris (11) HTN (hypertension) Current Visit: Yes Status: Chronic Qualifiers: Hypertension type: essential hypertension Qualified Code(s): I10 - Essential (primary) hypertension (12) DVT prophylaxis Current Visit: Yes Status: Acute Heparin SQ History of Present Illness Consult date: 10/30/16 Requesting physician: Huey Walker Reason for consult: other (Bleeding and hypotension s/p lap bravo) Chief complaint: Weakness History of present illness: Mr. Mueller is an 81 year old male with history significant for CAD (s/pCABG), CVA , CKD, HTN, DM, CHF, right carotid stenosis, sick sinus syndrome, ischemic cardiomyopathy who presented to [facility] with weakness. Once in the hospital he was found to have Cholecystitis with cholelithiasis. He was taken to the OR yesterday by Dr. Garay for lap bravo. He was found to have choledocholithiasis as well and Dr. Espino was consulted for ERPC which is planned for tomorrow. He was brought to the ICU due to bleeding and hypotension following surgery. He received fluid resuscitation and FFP. Pt is resting comfortably in bed this morning. Plan to transfer out of the ICU today. Past Med Surg Social Fam HX - Past Medical History Medical history: coronary artery disease, CVA, diabetes, GERD, glaucoma, hyperlipidemia, hypertension, renal disease Psychiatric history: no psych history - Past Surgical History Surgical History: carotid endarterectomy, coronary bypass (CABG) (2 vessel 5 years ago), pacemaker/AICD (pacemaker only), other (prostate surgery, right orchiectomy) - Social History Smoking Status: Former smoker Smokeless Tobacco Status: No Alcohol use: none Drug use: none - Family History Father Hx Family Endocrine Disorder: Yes (diabetes) Mother Hx Family Cancer: Yes (brain) Medications and Allergies Clopidogrel [Plavix] 75 mg PO DAILY 10/27/16 [History] Furosemide [Lasix] 40 mg PO DAILY 10/27/16 [History] GlipiZIDE [Glucotrol] 2.5 mg PO 3XW 10/27/16 [History] Levothyroxine [Synthroid] 25 mcg PO DAILY 10/27/16 [History] Lisinopril 2.5 mg PO DAILY 10/27/16 [History] Metoprolol Succinate 25 mg PO DAILY 10/27/16 [History] Omeprazole 20 mg PO DAILY 10/27/16 [History] Potassium Chloride [Klor-Con 10] 10 meq PO BID 10/27/16 [History] Simvastatin [Zocor] 20 mg PO DAILY 10/27/16 [History] Tamsulosin HCl [Flomax] 0.4 mg PO DAILY 10/27/16 [History] Cholecalciferol (Vitamin D3) [Vitamin D] 5,000 unit PO DAILY 10/28/16 [History] Folic Acid 1 mg PO DAILY 10/28/16 [History] Allergies No Known Allergies Allergy (Verified 10/28/16 08:41) All Systems: A 10-system review of systems was performed and is negative for pertinent findings except as documented above in the HPI. - Constitutional Constitutional: no chills, no fever(s), no headache(s) - EENT Nose, mouth and throat: no dizziness, no dysphagia, no headache(s) - Cardiovascular Cardiovascular: no chest pain, no lightheadedness, no palpitations - Respiratory Respiratory: no cough, no hemoptysis - Gastrointestinal Gastrointestinal: abdominal pain (s/p lap bravo) - Neurological Neurological: no confusion, no loss of vision, no numbness, no tingling Physical Examination Vital Signs: Vital Signs, Last 4 Hours Temp Pulse Resp BP Pulse Ox 10/30/16 09:00 97.9 F 69 16 107/51 99 10/30/16 08:00 65 16 109/53 99 10/30/16 07:50 97.9 F 10/30/16 07:00 73 16 102/65 99 10/30/16 06:46 98.4 F 66 16 109/50 99 General appearance: no acute distress, other (SUSHMA drain s/p lap bravo) Eyes: nonicteric ENT: oropharynx moist Neck: supple Effort: normal Auscultation: bilateral: clear Cardiovascular: regular rate and rhythm, other (pacemaker placed 5 years ago) Gastrointestinal: absent bowel sounds, soft, tender (Expected post-operative tenderness), other (incisions clean/dry/intact) Extremities: no cyanosis, no edema, no clubbing, pink and warm Musculoskeletal: no deformities non-focal exam mood appropriate, affect normal Results - Laboratory Findings CBC and BMP: 10/30/16 08:40 10/30/16 08:40 Abnormal lab findings: Abnormal lab results WBC 13.9 K/mcL (4.3-11.1) H 10/30/16 08:40 RBC 2.74 M/mcL (4.19-5.50) L 10/30/16 08:40 Hgb 8.6 g/dL (12.9-16.9) L 10/30/16 08:40 Hct 27.2 % (37.5-50.1) L 10/30/16 08:40 RDW 16.0 % (11.5-14.5) H 10/30/16 08:40 Plt Count 103 K/mcL (140-400) L 10/30/16 08:40 Neutrophils # 12.7 K/mcL (1.6-8.9) H 10/30/16 08:40 Chloride 117 mEq/L (98-109) H 10/30/16 08:40 Carbon Dioxide 18 mEq/L (19-29) L 10/30/16 08:40 BUN 44 mg/dL (8-26) H 10/30/16 08:40 Creatinine 2.38 mg/dL (0.72-1.25) H 10/30/16 08:40 Est GFR ( Amer) 32 (> 60) L 10/30/16 08:40 Est GFR (Non-Af Amer) 26 (> 60) L 10/30/16 08:40 Glucose 101 mg/dL (70-99) H 10/30/16 08:40 Calculated Osmolality 309 (280-300) H 10/30/16 08:40 Calcium 8.0 mg/dL (8.6-10.8) L 10/30/16 08:40 Magnesium 1.3 mg/dL (1.6-2.6) L 10/28/16 05:00 Total Bilirubin 2.9 mg/dL (0.2-1.2) H 10/30/16 08:40 Direct Bilirubin 2.2 mg/dL (0.0-0.5) H 10/28/16 12:08 AST 77 Units/L (5-34) H 10/30/16 08:40 ALT 56 Units/L (0-55) H 10/30/16 08:40 Alkaline Phosphatase 368 Units/L (38-126) H 10/30/16 08:40 Serum Total Protein 4.7 g/dL (6.0-8.3) L 10/30/16 08:40 Albumin 2.2 g/dL (3.5-5.0) L 10/30/16 08:40 Albumin/Globulin Ratio 0.9 (1.1-2.2) L 10/30/16 08:40 Ur Specimen Adequacy See below A 10/28/16 12:31 Acetaminophen < 1.0 mcg/mL (10-30) L 10/28/16 05:00 - Clinical Findings Intake & Output: Intake & Output 10/29/16 10/30/16 10/30/16 23:59 07:59 15:59 Intake Total 1000 / 1000 1400 / 1400 1100 / 1100 Output Total 668 / 668 505 / 505 Balance 332 / 332 895 / 895 1100 / 1100 Consult Discharge Plan - Plan Referrals: Angie Austin, INDUSTRIAL SPRAYPAINTER [Primary Care Provider] - 11/05/16 9:00 am <Tatiana Cornejo - Last Filed: 10/30/16 12:06> All Systems: A 10-system review of systems was performed and is negative for pertinent findings except as documented above in the HPI. Physical Examination Vital Signs: Vital Signs, Last 4 Hours Temp Pulse Resp BP Pulse Ox 10/30/16 11:00 67 16 108/49 100 10/30/16 10:00 68 16 109/50 99 10/30/16 09:00 97.9 F 69 16 107/51 99 Results - Laboratory Findings CBC and BMP: 10/30/16 08:40 10/30/16 08:40 Abnormal lab findings: Abnormal lab results WBC 13.9 K/mcL (4.3-11.1) H 10/30/16 08:40 RBC 2.74 M/mcL (4.19-5.50) L 10/30/16 08:40 Hgb 8.6 g/dL (12.9-16.9) L 10/30/16 08:40 Hct 27.2 % (37.5-50.1) L 10/30/16 08:40 RDW 16.0 % (11.5-14.5) H 10/30/16 08:40 Plt Count 103 K/mcL (140-400) L 10/30/16 08:40 Neutrophils # 12.7 K/mcL (1.6-8.9) H 10/30/16 08:40 Chloride 117 mEq/L (98-109) H 10/30/16 08:40 Carbon Dioxide 18 mEq/L (19-29) L 10/30/16 08:40 BUN 44 mg/dL (8-26) H 10/30/16 08:40 Creatinine 2.38 mg/dL (0.72-1.25) H 10/30/16 08:40 Est GFR ( Amer) 32 (> 60) L 10/30/16 08:40 Est GFR (Non-Af Amer) 26 (> 60) L 10/30/16 08:40 Glucose 101 mg/dL (70-99) H 10/30/16 08:40 POC Glucose 92 (58-89) H 10/30/16 11:43 Calculated Osmolality 309 (280-300) H 10/30/16 08:40 Calcium 8.0 mg/dL (8.6-10.8) L 10/30/16 08:40 Magnesium 1.3 mg/dL (1.6-2.6) L 10/28/16 05:00 Total Bilirubin 2.9 mg/dL (0.2-1.2) H 10/30/16 08:40 Direct Bilirubin 2.2 mg/dL (0.0-0.5) H 10/28/16 12:08 AST 77 Units/L (5-34) H 10/30/16 08:40 ALT 56 Units/L (0-55) H 10/30/16 08:40 Alkaline Phosphatase 368 Units/L (38-126) H 10/30/16 08:40 Serum Total Protein 4.7 g/dL (6.0-8.3) L 10/30/16 08:40 Albumin 2.2 g/dL (3.5-5.0) L 10/30/16 08:40 Albumin/Globulin Ratio 0.9 (1.1-2.2) L 10/30/16 08:40 Ur Specimen Adequacy See below A 10/28/16 12:31 Acetaminophen < 1.0 mcg/mL (10-30) L 10/28/16 05:00 - Clinical Findings Intake & Output: Intake & Output 10/29/16 10/30/16 10/30/16 23:59 07:59 15:59 Intake Total 1000 / 1000 1400 / 1400 1430 / 1430 Output Total 668 / 668 505 / 505 150 / 150 Balance 332 / 332 895 / 895 1280 / 1280 - Attending Attestation I examined this patient and my medical decision-making was reviewed with the MORTGAGE CONSULTANT/PA/Advanced Practice Nurse/Resident Physician. I agree with the documented findings, disposition and treatment plan as described except to the extent set forth below. Patient seen and examined. Labs, radiology, chart personally reviewed. Agree with resident's history and physical, assessment, plan with following comments: PERSONALIZED LIVING ASSISTANT: Patient follows commands, Pulmonary: Acceptable oxygenation and ventilation Cardiovascular: stable GI: Discussed with Dr. Garay and Dr. Espino regarding his care. Plan for ERCP in am per Dr. Espino. Heme: DVT prophylaxis per routine. Mechanical, patient has blood loss after surgery, but not requiring blood transfusion. ID: Continue antibiotics and plan to de-escalation Renal; urine out put and renal funtion reviewed Endorcine: blood glucose is monitored Lines: all lines checked and no evidence of infections Skin: skin care to prevent pressure ulcers per nursing routine care Patient hemodynamically stable and can be transferred out of ICU. Thank you very much for the consult will follow-up when necessary.
[2016-10-30] MEDS: *HR* Heparin 5,000 UNIT/ML VIAL SQ SCH (13:08)
[2016-10-30] MEDS ORDERED: Naloxone 0.4 MG/ML INJ IVP PRN (14:53)
[2016-10-30] MEDS ORDERED: *HR* Dextrose 50 % in Water (Syg) 50 ML SYRINGE IVP PRN (14:53)
[2016-10-30] MEDS ORDERED: *HR* Promethazine 25 MG/ML VIAL IVP PRN (14:53)
[2016-10-30] MEDS ORDERED: Dextrose Gel 15 GM PO PRN ×2 (14:53)
[2016-10-30] MEDS ORDERED: D5% in Water 1,000 ML IV PRN (14:53)
[2016-10-30] MEDS ORDERED: Ondansetron 4 MG/2 ML VIAL IVP PRN (14:53)
[2016-10-30] MEDS ORDERED: *HR* HYDROmorphone (PF) 1 MG/ML SYRINGE IVP PRN (14:53)
[2016-10-30] MEDS: Piperacillin/Tazobactam 3.375 GM in D5% in Water (Mini-Bag+) 100 ML IVPB SCH (16:33)
[2016-10-30 18:13] LABS: Basophils % 0.1 %; Eosinophils % 0.1 %; Hematocrit 25.2 % (37.5-50.1); Hemoglobin 8.4 g/dL (12.9-16.9); Immature Granulocytes % 0.6 % (0-4); Lymphocytes # 1.3 K/mcL (0.6-4.6); Lymphocytes % 8.2 %; Mean Corpuscular HGB Conc 33.3 g/dL (31.6-35.5); Mean Corpuscular Hemoglobin 31.8 pg (28.0-33.3); Mean Corpuscular Volume 95.5 fL (83.0-100.0); Mean Platelet Volume 12.1 fL (9.4-12.4); Monocytes % 6.6 %; Neutrophils # 13.1 K/mcL (1.6-8.9); Red Blood Count 2.64 M/mcL (4.19-5.50); Red Cell Distribution Width 15.8 % (11.5-14.5); Segmented Neutrophils % 84.4 %
[2016-10-30 18:43] LABS: Platelet Count 90 K/mcL (140-400)
[2016-10-30 18:48] LABS: Platelet Estimate Decreased (Normal); Toxic Granulation Present (Not Present)
[2016-10-31] MEDS: MetroNIDAZOLE 500 MG/100 ML 500 MG/100 ML BAG IVPB SCH ×4 (00:44→23:31)
[2016-10-31] MEDS: *HR* Heparin 5,000 UNIT/ML VIAL SQ SCH ×3 (00:44→23:30)
[2016-10-31] MEDS: 0.9 % Sodium Chloride 1,000 ML IVC SCH ×3 (02:51→17:24)
[2016-10-31 04:34] LABS: Eosinophils % 0.9 %; Hemoglobin 7.9 g/dL (12.9-16.9); Mean Corpuscular Volume 99.2 fL (83.0-100.0); Red Cell Distribution Width 16.1 % (11.5-14.5)
[2016-10-31 04:36] LABS: Basophils % 0.1 %; Eosinophils # 0.1 K/mcL (0.0-0.6); Hematocrit 25.2 % (37.5-50.1); Immature Granulocytes % 0.8 % (0-4); Lymphocytes # 1.1 K/mcL (0.6-4.6); Lymphocytes % 10.9 %; Mean Corpuscular HGB Conc 31.3 g/dL (31.6-35.5); Mean Corpuscular Hemoglobin 31.1 pg (28.0-33.3); Mean Platelet Volume 11.8 fL (9.4-12.4); Monocytes # 0.9 K/mcL (0.0-1.3); Monocytes % 8.6 %; Red Blood Count 2.54 M/mcL (4.19-5.50); Segmented Neutrophils % 78.7 %
[2016-10-31 04:37] LABS: Platelet Count 85 K/mcL (140-400)
[2016-10-31 04:46] LABS: Calcium 8.1 mg/dL (8.6-10.8); Potassium 4.4 mEq/L (3.5-4.5)
[2016-10-31] MEDS: Piperacillin/Tazobactam 3.375 GM in D5% in Water (Mini-Bag+) 100 ML IVPB SCH ×2 (05:58→17:22)
[2016-10-31] MEDS: Folic Acid 1 MG TABLET PO SCH (07:58)
[2016-10-31] MEDS: Magnesium Oxide 400 MG TABLET PO SCH ×2 (07:58→21:49)
[2016-10-31] MEDS: Cholecalciferol (D-3) 1,000 UNIT TABLET PO SCH (07:58)
[2016-10-31] MEDS: Insulin LISPRO 300 UNITS/3 ML VIAL SQ SCH ×4 (08:01→22:22)
[2016-10-31] MEDS: Levothyroxine 25 MCG TABLET PO SCH (08:03)
--- NOTE | 2016-10-31 08:50 | Nephrology Progress Note ---
Date of Encounter: 10/31/16 Time of Encounter: 08:20 - Assessment and Plan (1) ANDREW (acute kidney injury) Current Visit: Yes Status: Acute S/P bravo. Renal fct somewhat worse, overall stable. No edema or SOB. Urine output 250cc. Possible ERCP today. Subjective Interval history: Transferred out of ICU. States feels good, not having much discomfort. Passing flatus. Objective - Vital Signs Vital signs: Vital Signs Temp Pulse Resp BP Pulse Ox 10/31/16 07:34 97.9 F 66 16 116/69 97 10/31/16 04:28 98.3 F 62 16 101/57 97 10/31/16 00:18 97.9 F 68 16 99/58 99 10/30/16 21:07 97.6 F 68 16 115/65 99 10/30/16 14:55 98.9 F 75 16 110/61 98 10/30/16 13:00 70 16 105/49 100 10/30/16 12:00 97.0 F L 69 16 116/61 98 10/30/16 11:00 67 16 108/49 100 10/30/16 10:00 68 16 109/50 99 10/30/16 09:00 97.9 F 69 16 107/51 99 Intake and Output 10/30/16 10/31/16 10/31/16 23:59 07:59 15:59 Intake Total 460 / 460 3200 / 3200 Output Total 275 / 275 350 / 350 Balance 185 / 185 2850 / 2850 Intake: IV Fluids 100 / 100 3200 / 3200 0.9 % Sodium Chloride 1, 2000 / 2000 000 ML @ 75 mls/hr IVC . [id number] [facility] Rx#: [id number] Flagyl 500 MG/100 ML 500 100 / 100 100 / 100 mg In 100 ml @ 100 mls/hr IVPB Q8HR [facility] Rx#: [id number] Zosyn 3.375 GM In 100 / 100 Dextrose 5% (Minibag+) 100 ML 100 ML @ 25 mls/hr IVPB Q12HR [facility] Rx#: [id number] Oral 360 / 360 0 / 0 Output: Catheter 125 / 125 250 / 250 Wound Drainage 150 / 150 100 / 100 Right Upper Abdomen 150 / 150 100 / 100 Other: Meal Dinner Percent of Meal Consumed 55% # Bowel Movements 0 Weight 70.2 kg Blood Glucose* 193 99 Patient Weight 10/31/16 23:59 Weight 70.2 kg - General Appearance General appearance: Present: well-developed, well-nourished, appears started age EENT: Present: mucous membranes moist Neck: Present: no JVD Respiratory: Present: clear Cardiology: Present: no edema, regular rate, regular rhythm Gastrointestinal: Present: normoactive bowel sounds, no tenderness Integumentary: Present: warm and dry Neurologic: Present: alert and oriented x3 Psychiatric: Present: mood/affect appropriate, cooperative - Lab 10/31/16 04:23 10/31/16 04:23 Most recent lab results Calcium 8.1 mg/dL (8.6-10.8) L 10/31/16 04:23 Phosphorus 3.8 mg/dL (2.3-4.7) 10/28/16 05:00 Magnesium 1.3 mg/dL (1.6-2.6) L 10/28/16 05:00 Consult Discharge Plan - Plan Referrals: Angie Austin CNP [Primary Care Provider] - 11/05/16 9:00 am
--- NOTE | 2016-10-31 10:48 | General Surgery Progress Note ---
Date of Encounter: 10/31/16 Time of Encounter: 10:40 - Assessment and Plan (1) Choledocholithiasis with acute cholecystitis with obstruction Current Visit: Yes Status: Acute The patient had preoperative evidence of common bile duct obstruction with elevated bilirubin. He also had acute cholecystitis. He underwent laparoscopic cholecystectomy and intraoperative cholangiogram. The cholangiogram demonstrated 3 large common bile duct stones. He did require intraoperative suture closure of the cystic duct. He experienced postoperative bleeding secondary to Plavix. This was treated successfully with volume resuscitation in the intensive care unit. He is transferred out of the intensive care unit today. We will plan on maintaining clear liquids and nothing by mouth after midnight for ERCP tomorrow. Subjective Narrative: The patient is having very little pain. He underwent laparoscopic cholecystectomy, cholangiogram. Cholangiogram demonstrated extensive choledocholithiasis. He is on for ERCP today. I would recommend postoperative antibiotic and possible discharge on Tuesday. Further treatment based on findings at ERCP. His Rommel-Hart drain has fairly high output of serosanguineous fluid. We will watch this very closely for any signs of bile leakage. Objective Vital Signs - Last 8 Hours Temp Pulse Resp BP Pulse Ox 10/31/16 07:34 97.9 F 66 16 116/69 97 10/31/16 04:28 98.3 F 62 16 101/57 97 Intake and Output 10/30/16 10/31/16 10/31/16 23:59 07:59 15:59 Intake Total 460 / 460 3200 / 3200 Output Total 275 / 275 350 / 350 100 / 100 Balance 185 / 185 2850 / 2850 -100 / -100 Intake: IV Fluids 100 / 100 3200 / 3200 0.9 % Sodium Chloride 1, 2000 / 2000 000 ML @ 75 mls/hr IVC . [id number] [facility] Rx#: [id number] Flagyl 500 MG/100 ML 500 100 / 100 100 / 100 mg In 100 ml @ 100 mls/hr IVPB Q8HR [facility] Rx#: [id number] Zosyn 3.375 GM In 100 / 100 Dextrose 5% (Minibag+) 100 ML 100 ML @ 25 mls/hr IVPB Q12HR [facility] Rx#: [id number] Oral 360 / 360 0 / 0 Output: Catheter 125 / 125 250 / 250 Wound Drainage 150 / 150 100 / 100 100 / 100 Right Upper Abdomen 150 / 150 100 / 100 100 / 100 Other: Meal Dinner Percent of Meal Consumed 55% # Bowel Movements 0 Weight 70.2 kg Blood Glucose* 193 99 Patient Weight 10/31/16 23:59 Weight 70.2 kg - General physical appearance well developed, well nourished - Respiratory normal expansion, normal respiratory effort, clear to percussion, clear to auscultation - Cardiovascular Cardiovascular exam: Present: RRR, no murmurs/rubs/gallops - Abdomen Abdomen: Present: bowel sounds present, soft, non tender - Incision Incision: Present: clean and dry - Neurologic normal coordination, normal sensation - Psychiatric oriented to time, oriented to person, oriented to place, speech is normal, memory intact - Labs 10/31/16 04:23 10/31/16 04:23 Diabetes panel 10/31/16 Range/Units 04:23 Sodium 139 (136-145) mEq/L Potassium 4.4 (3.5-4.5) mEq/L Chloride 115 H (98-109) mEq/L Carbon Dioxide 16 L (19-29) mEq/L BUN 45 H (8-26) mg/dL Creatinine 2.62 H (0.72-1.25) mg/dL Glucose 116 H (70-99) mg/dL Calcium 8.1 L (8.6-10.8) mg/dL Calcium panel 10/31/16 Range/Units 04:23 Calcium 8.1 L (8.6-10.8) mg/dL Pituitary panel 10/31/16 Range/Units 04:23 Sodium 139 (136-145) mEq/L Potassium 4.4 (3.5-4.5) mEq/L Chloride 115 H (98-109) mEq/L Carbon Dioxide 16 L (19-29) mEq/L BUN 45 H (8-26) mg/dL Creatinine 2.62 H (0.72-1.25) mg/dL Glucose 116 H (70-99) mg/dL Calcium 8.1 L (8.6-10.8) mg/dL Adrenal panel 10/31/16 Range/Units 04:23 Sodium 139 (136-145) mEq/L Potassium 4.4 (3.5-4.5) mEq/L Chloride 115 H (98-109) mEq/L Carbon Dioxide 16 L (19-29) mEq/L BUN 45 H (8-26) mg/dL Creatinine 2.62 H (0.72-1.25) mg/dL Glucose 116 H (70-99) mg/dL Calcium 8.1 L (8.6-10.8) mg/dL Consult Discharge Plan - Plan Referrals: Angie Austin CNP [Primary Care Provider] - 11/05/16 9:00 am
[2016-10-31] MEDS ORDERED: Lidocaine -MPF 2% 2 ML VIAL ONE (11:01)
[2016-10-31] MEDS ORDERED: *HR* FentaNYL (PF) 100 MCG/2 ML VIAL ONE (11:01)
[2016-10-31] MEDS ORDERED: *HR* Rocuronium Bromide 50 MG/5 ML VIAL ONE (11:01)
[2016-10-31] MEDS ORDERED: *HR* Propofol 200 MG/20 ML VIAL IVP ONE (11:01)
[2016-10-31] MEDS ORDERED: Ringers Solution, Lactated 1,000 ML IVC SCH (11:15)
--- NOTE | 2016-10-31 11:20 | Anesthesia Evaluation PreOp ---
Date of Encounter: 10/31/16 Time of Encounter: 11:18 - Past History Planned Operation: ERCP Cardiac History: HTN, Hyperlipidemia, Arrhythmia (sick sinus syndrome), Cardiac Surgery (CABG x 2), Pacemaker/ICD Pulmonary History: Former smoker (quit 50 years ago) EMPLOYMENT INTERVIEWER History: CVA Other Medical History: Renal (CKD), Diabetes Type II Anesthesia History: No Prior Anesthetic Complications, Past Anesthesia Alcohol Use: none Drug use: none Medications and Allergies Clopidogrel [Plavix] 75 mg PO DAILY 10/27/16 [History] Furosemide [Lasix] 40 mg PO DAILY 10/27/16 [History] GlipiZIDE [Glucotrol] 2.5 mg PO 3XW 10/27/16 [History] Levothyroxine [Synthroid] 25 mcg PO DAILY 10/27/16 [History] Lisinopril 2.5 mg PO DAILY 10/27/16 [History] Metoprolol Succinate 25 mg PO DAILY 10/27/16 [History] Omeprazole 20 mg PO DAILY 10/27/16 [History] Potassium Chloride [Klor-Con 10] 10 meq PO BID 10/27/16 [History] Simvastatin [Zocor] 20 mg PO DAILY 10/27/16 [History] Tamsulosin HCl [Flomax] 0.4 mg PO DAILY 10/27/16 [History] Cholecalciferol (Vitamin D3) [Vitamin D] 5,000 unit PO DAILY 10/28/16 [History] Folic Acid 1 mg PO DAILY 10/28/16 [History] Allergies No Known Allergies Allergy (Verified 10/28/16 08:41) - Meds/Allergy Pre-op Review Medications Reviewed: Yes Allergies Reviewed: Yes Beta Blockers on Current Med List: Yes Anesthesia Results - Labs 10/31/16 04:23 10/31/16 04:23 - Imaging EKG: report reviewed (10/27/2016 electronic atrial/ventricular pacemaker) Additional studies: 05/21/2016 Echo LVEF 30-35% segmental wall motion abnormality c/w ischemic cardiomyopathy/CAd mild concentric LVH 03/21/2015 Echo Impressions: LVEF 30-35%. Segmental left ventricular systolic dysfunction as described below. Mild left ventricular diastolic dysfunction. Normal right ventricular size with mild hypokinesis. Mild tricuspid regurgitation. No pulmonary hypertension. A device lead was visualized in the right atrium and right ventricle. 04/08/2014 Stress Impression: Perfusion imaging was negative for ischemia. There is a large sized, moderate to severe intensity, fixed perfusion defect in the inferior and inferolateral segments consistent with a previous infarct. Pharmacologic stress ECG is non diagnostic for ischemia due to baseline paced rhythm. No arrhythmias were noted during stress. No chest pain or arrhythmias during stress. Patient had no chest pain during stress. Normal hemodynamic responses to pharmacologic stress. Gated EF = 38%. Inferior and inferolateral wall hypokinesis. The left ventricle is not significantly dilated. LVEDV 138 mL. No evidence of transient ischemic dilatation. Anesthesia Exam Vital Signs/O2 Sat/Glucose, Most Recent Temp Pulse Resp BP Pulse Ox 98.6 F 68 18 109/58 97 10/31/16 11:15 10/31/16 11:15 10/31/16 11:15 10/31/16 11:15 10/31/16 11:15 Blood Glucose* 99 Height: 5'9"/1.75 m Weight: 157 lbs/70.2 kg NPO (# of Hours): 8 Pain Scale: 8 Pain Scale Used: Numeric (1 - 10) - HEENT Pupil (Motor): EOMI Mallampati: II Teeth: Edentulous Denture Type: Upper: Complete, Lower: Complete Oral Opening: Greater than 3 - EMPLOYMENT INTERVIEWER LOC: Oriented EMPLOYMENT INTERVIEWER Motor: Normal RUE, Normal LUE, Normal RLE, Normal LLE, Normal Face EMPLOYMENT INTERVIEWER Sensory: Normal: RUE, LUE, Face, Deficit: RLE, LLE - Cardiac Rhythm: Regular Murmur: None - Pulmonary Breath Sounds: bilateral Clear Respiratory Effort: Symmetrical Anesthesia Assess/Plan ASA Score: 4 Modified Elizabeth Scale for Level of Consciousness: Cooperative, oriented, and tranquil Anesthetic Plan: General Monitoring Plan: Standard Monitors Recovery Plan: PACU
--- NOTE | 2016-10-31 11:40 | Internal Med Progress Note ---
Date of Encounter: 10/31/16 Time of Encounter: 11:38 - Assessment and plan (1) Choledocholithiasis with acute cholecystitis with obstruction Current Visit: Yes Status: Acute Assessment and plan: Admitted with acute cholecystitis, underwent laparoscopic cholecystectomy with cholangiogram. Evidence of CBD stones. The patient will undergo ERCP today as planned during his stay in the intensive care unit. His blood pressure levels have improved, he was hypotensive and for that reason he was transferred to the ICU. Leukocytosis resolved, hemoglobin continues to decrease (initial 12.4, today 7.9), we will continue monitoring his hemoglobin, if continues to drop, we will transfuse accordingly. Platelet count ending down today is 85,000, we will continue monitoring. The patient has a Mares catheter placed, I discussed with the patient in detail about the risk of infections associated with the Mares. The patient will have ERCP done today, will continue with the mares for now and remove the Mares tomorrow, he agreed with the plan. In the meantime, would continue with both Zosyn and Flagyl for antibiotic coverage. Follow cultures. For his acute kidney injury would continue with IV fluids and avoid nephrotoxic agents. Nephrology following the case closely, will follow recommendations. Magnesium upon admission 1.3. We will monitor magnesium level tomorrow in a.m. Follow liver function tests tomorrow in a.m. (2) DVT prophylaxis Current Visit: Yes Status: Acute (3) ANDREW (acute kidney injury) Current Visit: Yes Status: Acute (4) Anemia Current Visit: Yes Status: Acute Qualifiers: Anemia type: unspecified type Qualified Code(s): D64.9 - Anemia, unspecified - Subjective Interval history: My first encounter with the patient. The patient is complaining of abdominal pain, he is otherwise pleasant. No fever, no shortness of breath. His family members were at bedside during this encounter. - Constitutional Vitals: Temp Pulse Resp BP Pulse Ox 98.6 F 68 18 109/58 97 10/31/16 11:15 10/31/16 11:15 10/31/16 11:15 10/31/16 11:15 10/31/16 11:15 General appearance: Present: A&O X 3, pleasant, no acute distress - Head Head exam: Present: atraumatic, normocephalic - Eye Eye exam: Present: PERRL, conjuntiva pink, sclera anicteric Pupils: Present: PERRL - Neck Neck exam general surgery: Present: supple, trachea midline. Absent: lymphadenopathy - Respiratory Respiratory exam: Present: CTAB. Absent: accessory muscle use, rales, rhonchi, wheezes - Cardiovascular Cardiovascular exam: Present: RRR, +S1, +S2. Absent: diastolic murmur, gallop, rubs, systolic murmur - GI/Abdominal GI/Abdominal exam: Present: normal bowel sounds, soft, no peritoneal signs. Absent: distended, tenderness - Additional comments: mares catheter - Extremities Exam Extremities exam: Present: warm, radial pulses palpable and symetrical. Absent : calf tenderness, cyanotic, pedal edema - Neurological Exam Neurological exam: Present: CN II-XII intact, oriented X3, no focal deficits. Absent: pronater drift, facial droop, speech deficit - Skin Skin exam: Present: dry, intact Internal Medicine: Result - Labs CBC & Chem 7: 10/31/16 04:23 10/31/16 04:23 Labs: Short CBC 10/30/16 10/31/16 Range/Units 18:07 04:23 WBC 15.5 H 10.2 (4.3-11.1) K/mcL Hgb 8.4 L 7.9 L (12.9-16.9) g/dL Hct 25.2 L 25.2 L (37.5-50.1) % Plt Count 90 L 85 L (140-400) K/mcL Neutrophils # 13.1 H 8.0 (1.6-8.9) K/mcL BMP 10/31/16 04:23 Sodium 139 Potassium 4.4 Chloride 115 H Carbon Dioxide 16 L BUN 45 H Creatinine 2.62 H Glucose 116 H Calcium 8.1 L Consult Discharge Plan - Plan Referrals: Angie Austin CNP [Primary Care Provider] - 11/05/16 9:00 am
[2016-10-31] MEDS ORDERED: EPHEDrine 50 MG/ML VIAL ONE (11:49)
[2016-10-31] MEDS ORDERED: Indomethacin 50 MG SUPP.RECT RC ONE ×2 (11:55→12:45)
[2016-10-31] MEDS ORDERED: *HR* Morphine 2 MG/ML SYRINGE IVP PRN (12:06)
[2016-10-31] MEDS ORDERED: Ondansetron 4 MG/2 ML VIAL ONE (12:49)
[2016-10-31] MEDS ORDERED: Dexamethasone 4 MG/ML VIAL ONE (12:49)
--- NOTE | 2016-10-31 13:33 | Anesthesia Evaluation Post Op ---
Date of Encounter: 10/31/16 Time of Encounter: 13:32 - Vital Signs Vital Signs: Vital Signs/O2 Sat/Glucose, Most Recent Temp Pulse Resp BP Pulse Ox 98.7 F 66 18 101/49 94 L 10/31/16 13:01 10/31/16 13:21 10/31/16 13:21 10/31/16 13:21 10/31/16 13:21 Blood Glucose* 150 - Lungs Lungs: Clear Ascult./Percussion - Airway Airway: Non-obstructed - Cardiovascular Regular Rate (paced) - Mental Status Mental Status: Alert & Oriented, Answers Appropriately - Pain Pain Scale: 0 Pain Scale used: Numeric (1 - 10) - Nausea Vomiting Nausea Vomiting: Not Present - Hydration Hydration: NPO, Sinclair catheter - Discharge PostOp Status: Transfer Patient to floor
[2016-10-31 21:27] LABS: Amylase 26 Units/L (25-125); Lipase 23 Units/L (8-78)
[2016-10-31] MEDS ORDERED: 0.9 % Sodium Chloride 1,000 ML IVC SCH (22:48)
[2016-11-01 04:07] LABS: Basophils % 0.3 %; Immature Granulocytes % 0.8 % (0-4); Lymphocytes % 10.9 %
[2016-11-01 04:09] LABS: Eosinophils # 0.1 K/mcL (0.0-0.6); Eosinophils % 1.5 %; Hematocrit 23.8 % (37.5-50.1); Hemoglobin 7.6 g/dL (12.9-16.9); Immature Platelets 5.6 % (1.1-6.1); Lymphocytes # 0.8 K/mcL (0.6-4.6); Mean Corpuscular HGB Conc 31.9 g/dL (31.6-35.5); Mean Corpuscular Hemoglobin 31.7 pg (28.0-33.3); Mean Corpuscular Volume 99.2 fL (83.0-100.0); Mean Platelet Volume 11.6 fL (9.4-12.4); Monocytes # 0.6 K/mcL (0.0-1.3); Monocytes % 7.4 %; Red Cell Distribution Width 16.3 % (11.5-14.5); Segmented Neutrophils % 79.1 %
[2016-11-01 04:10] LABS: Neutrophils # 5.9 K/mcL (1.6-8.9); Platelet Count 81 K/mcL (140-400)
[2016-11-01 04:12] LABS: INR 1.7
[2016-11-01 04:48] LABS: Albumin/Globulin Ratio 0.7 (1.1-2.2); Bilirubin,Direct 1.6 mg/dL (0.0-0.5); Bilirubin,Indirect 0.8 mg/dL (0.0-1.2); Bilirubin,Total 2.4 mg/dL (0.2-1.2); Calcium 8.4 mg/dL (8.6-10.8); Globulin 2.7 g/dL (2.4-3.5); Magnesium 1.1 mg/dL (1.6-2.6); Potassium 4.3 mEq/L (3.5-4.5); Total Protein 4.6 g/dL (6.0-8.3)
[2016-11-01 04:51] LABS: Albumin 1.9 g/dL (3.5-5.0)
[2016-11-01] MEDS: Piperacillin/Tazobactam 3.375 GM in D5% in Water (Mini-Bag+) 100 ML IVPB SCH ×2 (06:03→17:42)
[2016-11-01] MEDS: Insulin LISPRO 300 UNITS/3 ML VIAL SQ SCH ×4 (07:50→21:35)
[2016-11-01] MEDS: MetroNIDAZOLE 500 MG/100 ML 500 MG/100 ML BAG IVPB SCH ×3 (07:53→23:03)
[2016-11-01] MEDS ORDERED: Magnesium Sulfate 2 GM in D5% in Water 100 ML IVPB ONE (08:36)
[2016-11-01] MEDS ORDERED: *HR* GlipiZIDE 5 MG TABLET PO SCH (09:00)
--- NOTE | 2016-11-01 09:01 | Nephrology Progress Note ---
Date of Encounter: 11/01/16 Time of Encounter: 08:59 - Assessment and Plan (1) Chronic kidney disease, stage IV (severe) Current Visit: Yes Status: Acute Patient has stage IV chronic kidney disease. Renal function is relatively stable. There were transaminases are improving. He is hypomagnesemic. I will order some IV magnesium supplementation. Hemoglobin is low. If it drops any further he may require blood transfusion. (2) Choledocholithiasis with acute cholecystitis with obstruction Current Visit: Yes Status: Acute Subjective Interval history: The patient reports she has some pain with coughing otherwise he says he is doing well. He denies any other abdominal pain. He denies any shortness of breath. He status post ERCP yesterday with removal of 3 common bile duct stones. Renal function remains relatively stable. Urine output is good. Hemoglobin is low magnesium is low. Liver transaminase levels and alkaline phosphatase continued to decrease. Objective - Vital Signs Vital signs: Vital Signs Temp Pulse Resp BP Pulse Ox 11/01/16 06:21 98.2 F 66 14 117/70 96 11/01/16 03:41 97.5 F L 67 14 104/63 97 11/01/16 00:26 97.7 F 64 14 100/56 97 10/31/16 20:12 98.2 F 68 12 126/67 97 10/31/16 16:40 98.2 F 70 12 106/57 97 10/31/16 15:48 97.5 F L 66 12 93/50 95 10/31/16 14:40 97.8 F 65 14 108/59 96 10/31/16 14:10 97.6 F 63 14 96/55 97 10/31/16 13:41 98.1 F 70 12 102/78 93 L 10/31/16 13:31 98.4 F 65 16 103/50 95 10/31/16 13:21 66 18 101/49 94 L 10/31/16 13:11 76 20 109/63 94 L 10/31/16 13:01 98.7 F 78 20 101/49 96 10/31/16 11:15 97.6 F 68 18 109/58 97 Intake and Output 10/31/16 11/01/16 11/01/16 23:59 07:59 15:59 Intake Total 1781 / 1781 470 / 470 Output Total 100 / 100 150 / 150 Balance 1681 / 1681 320 / 320 Intake: IV Fluids 1661 / 1661 350 / 350 0.9 % Sodium Chloride 1, 1461 / 1461 250 / 250 000 ML @ 75 mls/hr IVC . [id number] [facility] Rx#: [id number] Flagyl 500 MG/100 ML 500 100 / 100 100 / 100 mg In 100 ml @ 100 mls/hr IVPB Q8HR [facility] Rx#: [id number] Zosyn 3.375 GM In 100 / 100 Dextrose 5% (Minibag+) 100 ML 100 ML @ 25 mls/hr IVPB Q12HR [facility] Rx#: [id number] Oral 120 / 120 120 / 120 Output: Urine 100 / 100 Catheter 100 / 100 50 / 50 Other: # Bowel Movements 0 Weight 70.2 kg Blood Glucose* 103 113 Patient Weight 11/01/16 23:59 Weight 70.2 kg - General Appearance Exam: Patient is sitting in a chair in no acute distress. Lung sounds otherwise clear. Heart regular rate and rhythm. Abdomen is soft. There is no peripheral edema. Sinclair catheter is in place. Maintenance IV is running at 100 mL per hour. - Lab 11/01/16 03:52 11/01/16 03:52 Most recent lab results Calcium 8.4 mg/dL (8.6-10.8) L 11/01/16 03:52 Phosphorus 3.8 mg/dL (2.3-4.7) 10/28/16 05:00 Magnesium 1.1 mg/dL (1.6-2.6) L 11/01/16 03:52 Consult Discharge Plan - Plan Referrals: Angie Austin CNP [Primary Care Provider] - 11/05/16 9:00 am
--- NOTE | 2016-11-01 09:10 | General Surgery Progress Note ---
<Selwyn Cormier - Last Filed: 11/02/16 06:48> Date of Encounter: 11/01/16 Time of Encounter: 07:20 - Assessment and Plan (1) Choledocholithiasis with acute cholecystitis with obstruction Current Visit: Yes Status: Acute POD #3 s/p laparoscopic cholecystectomy and intraoperative cholangiogram for evidence of common bile duct obstruction with elevated bilirubin and acute cholecysititis. ERCP on 10/31/16 revealed choledocholithiasis, complete removal was accomplished by biliary sphincterotomy and balloon extraction. 1 stone removed from cystic duct, 4+ stones removed from common bile duct. Temporary stent placed into common bile duct. Tolerated clears well, advanced to regular diet. Continue SUSHMA drain management. Plan to d/c with SUSHMA drain. Sinclair discontinued. (2) ANDREW (acute kidney injury) Current Visit: Yes Status: Acute Cr 2.84 with GFR 21 Managed by medicine service. (3) Anemia Current Visit: Yes Status: Acute Managed by medicine service. Qualifiers: Anemia type: unspecified type Qualified Code(s): D64.9 - Anemia, unspecified (4) Diabetes mellitus Current Visit: Yes Status: Acute Managed by medicine service. Subjective Patient reports: no new complaints, feels better, still having pain (mild pain with coughing), pain is less, tolerating liquids well, flatus, no bowel movement , afebrile Objective Vital Signs - Last 8 Hours Temp Pulse Resp BP Pulse Ox 11/01/16 06:21 98.2 F 66 14 117/70 96 11/01/16 03:41 97.5 F L 67 14 104/63 97 Intake and Output 10/31/16 11/01/16 11/01/16 23:59 07:59 15:59 Intake Total 1781 / 1781 470 / 470 720 / 720 Output Total 100 / 100 150 / 150 Balance 1681 / 1681 320 / 320 720 / 720 Intake: IV Fluids 1661 / 1661 350 / 350 0.9 % Sodium Chloride 1, 1461 / 1461 250 / 250 000 ML @ 75 mls/hr IVC . [id number] [facility] Rx#: [id number] Flagyl 500 MG/100 ML 500 100 / 100 100 / 100 mg In 100 ml @ 100 mls/hr IVPB Q8HR [facility] Rx#: [id number] Zosyn 3.375 GM In 100 / 100 Dextrose 5% (Minibag+) 100 ML 100 ML @ 25 mls/hr IVPB Q12HR [facility] Rx#: [id number] Oral 120 / 120 120 / 120 720 / 720 Output: Urine 100 / 100 Catheter 100 / 100 50 / 50 Other: Meal Breakfast # Bowel Movements 0 Weight 70.2 kg Blood Glucose* 103 113 Patient Weight 11/01/16 23:59 Weight 70.2 kg - General physical appearance well developed, well nourished, no distress - Eyes normal ocular movement - ENT normal mucosa, atraumatic, normocephalic - Neck Neck exam: trachea midline - Respiratory normal respiratory effort, clear to auscultation - Cardiovascular Cardiovascular exam: Present: RRR - Abdomen Abdomen: Present: soft, tender (mild, expected post operative tenderness), wound (SUSHMA to Right abdomen with serosanguinous fluid ) - Incision Incision: Present: clean and dry - Integumentary no rash - Neurologic CN 2-12 grossly intact - Psychiatric oriented to person, oriented to place, speech is normal, memory intact - Labs 11/02/16 05:04 11/02/16 05:04 Diabetes panel 11/01/16 Range/Units 03:52 Sodium 140 (136-145) mEq/L Potassium 4.3 (3.5-4.5) mEq/L Chloride 116 H (98-109) mEq/L Carbon Dioxide 16 L (19-29) mEq/L BUN 46 H (8-26) mg/dL Creatinine 2.84 H (0.72-1.25) mg/dL Glucose 108 H (70-99) mg/dL Calcium 8.4 L (8.6-10.8) mg/dL AST 61 H (5-34) Units/L ALT 53 (0-55) Units/L Alkaline Phosphatase 326 H (38-126) Units/L Albumin 1.9 L (3.5-5.0) g/dL Calcium panel 11/01/16 Range/Units 03:52 Calcium 8.4 L (8.6-10.8) mg/dL Albumin 1.9 L (3.5-5.0) g/dL Pituitary panel 11/01/16 Range/Units 03:52 Sodium 140 (136-145) mEq/L Potassium 4.3 (3.5-4.5) mEq/L Chloride 116 H (98-109) mEq/L Carbon Dioxide 16 L (19-29) mEq/L BUN 46 H (8-26) mg/dL Creatinine 2.84 H (0.72-1.25) mg/dL Glucose 108 H (70-99) mg/dL Calcium 8.4 L (8.6-10.8) mg/dL Adrenal panel 11/01/16 Range/Units 03:52 Sodium 140 (136-145) mEq/L Potassium 4.3 (3.5-4.5) mEq/L Chloride 116 H (98-109) mEq/L Carbon Dioxide 16 L (19-29) mEq/L BUN 46 H (8-26) mg/dL Creatinine 2.84 H (0.72-1.25) mg/dL Glucose 108 H (70-99) mg/dL Calcium 8.4 L (8.6-10.8) mg/dL Total Bilirubin 2.4 H (0.2-1.2) mg/dL AST 61 H (5-34) Units/L ALT 53 (0-55) Units/L Alkaline Phosphatase 326 H (38-126) Units/L Albumin 1.9 L (3.5-5.0) g/dL Consult Discharge Plan - Plan Referrals: Angie Austin, TH[facility] [Primary Care Provider] - 11/05/16 9:00 am <Boubacar Garay - Last Filed: 11/02/16 07:30> Date of Encounter: 11/01/16 Time of Encounter: 07:20 - Assessment and Plan (1) Choledocholithiasis with acute cholecystitis with obstruction Current Visit: Yes Status: Acute Objective Vital Signs - Last 8 Hours Temp Pulse Resp BP Pulse Ox 11/02/16 07:07 97.9 F 74 16 114/67 97 11/02/16 07:00 97 11/02/16 04:42 98.2 F 87 16 126/71 96 Intake and Output 11/01/16 11/01/16 11/02/16 15:59 23:59 07:59 Intake Total 2344 / 2344 1300 / 1300 1670 / 1670 Output Total 530 / 530 320 / 320 120 / 120 Balance 1814 / 1814 980 / 980 1550 / 1550 Intake: IV Fluids 304 / 304 100 / 100 550 / 550 Magnesium Sulfate 2 GM In 104 / 104 Dextrose 5% 100 ML @ 100 mls/hr IVPB ONCE [facility] Rx# :[id number] Flagyl 500 MG/100 ML 500 100 / 100 100 / 100 100 / 100 mg In 100 ml @ 100 mls/hr IVPB Q8HR [facility] Rx#: [id number] Zosyn 3.375 GM In 100 / 100 200 / 200 Dextrose 5% (Minibag+) 100 ML 100 ML @ 25 mls/hr IVPB Q12HR [facility] Rx#: [id number] Oral 1440 / 1440 600 / 600 1120 / 1120 Blood Product 600 / 600 600 / 600 Rbcs Leuko Poor As-1 600 / 600 Unit [id number] Rbcs Leuko Poor As-1 600 / 600 Unit [id number] Output: Urine 250 / 250 300 / 300 100 / 100 Urine/Stool Mix 0 / 0 Catheter 200 / 200 Wound Drainage 80 / 80 20 / 20 20 / 20 Right Upper Abdomen 80 / 80 20 / 20 20 / 20 Other: Meal Clear Dinner Percent of Meal Consumed 100% Stool Size Small Stool Consistency liquid Stool Color Brown # Bowel Movements 1 0 Weight 70 kg Blood Glucose* 152 185 137 Patient Weight 11/02/16 23:59 Weight 70 kg - Labs 11/02/16 05:04 11/02/16 05:04 Diabetes panel 11/02/16 Range/Units 05:04 Sodium 136 (136-145) mEq/L Potassium 4.3 (3.5-4.5) mEq/L Chloride 114 H (98-109) mEq/L Carbon Dioxide 15 L (19-29) mEq/L BUN 40 H (8-26) mg/dL Creatinine 2.52 H (0.72-1.25) mg/dL Glucose 99 (70-99) mg/dL Calcium 8.5 L (8.6-10.8) mg/dL AST 46 H (5-34) Units/L ALT 43 (0-55) Units/L Alkaline Phosphatase 376 H (38-126) Units/L Albumin 2.0 L (3.5-5.0) g/dL Calcium panel 11/02/16 Range/Units 05:04 Calcium 8.5 L (8.6-10.8) mg/dL Phosphorus 2.1 L (2.3-4.7) mg/dL Albumin 2.0 L (3.5-5.0) g/dL Pituitary panel 11/02/16 Range/Units 05:04 Sodium 136 (136-145) mEq/L Potassium 4.3 (3.5-4.5) mEq/L Chloride 114 H (98-109) mEq/L Carbon Dioxide 15 L (19-29) mEq/L BUN 40 H (8-26) mg/dL Creatinine 2.52 H (0.72-1.25) mg/dL Glucose 99 (70-99) mg/dL Calcium 8.5 L (8.6-10.8) mg/dL Adrenal panel 11/02/16 Range/Units 05:04 Sodium 136 (136-145) mEq/L Potassium 4.3 (3.5-4.5) mEq/L Chloride 114 H (98-109) mEq/L Carbon Dioxide 15 L (19-29) mEq/L BUN 40 H (8-26) mg/dL Creatinine 2.52 H (0.72-1.25) mg/dL Glucose 99 (70-99) mg/dL Calcium 8.5 L (8.6-10.8) mg/dL Total Bilirubin 2.7 H (0.2-1.2) mg/dL AST 46 H (5-34) Units/L ALT 43 (0-55) Units/L Alkaline Phosphatase 376 H (38-126) Units/L Albumin 2.0 L (3.5-5.0) g/dL - Attending Attestation I examined this patient and my medical decision-making was reviewed with the APPROVER/PA/Advanced Practice Nurse/Resident Physician. I agree with the documented findings, disposition and treatment plan as described except to the extent set forth below. Boubacar Garay MD FACS
[2016-11-01] MEDS: Levothyroxine 25 MCG TABLET PO SCH (10:06)
[2016-11-01] MEDS: Magnesium Oxide 400 MG TABLET PO SCH ×2 (10:06→20:45)
[2016-11-01] MEDS: Cholecalciferol (D-3) 1,000 UNIT TABLET PO SCH (10:07)
[2016-11-01] MEDS: Folic Acid 1 MG TABLET PO SCH (10:07)
--- NOTE | 2016-11-01 12:27 | Internal Med History&Physical ---
Date of Encounter: 11/01/16 Time of Encounter: 12:26 Internal Medicine - H&P: HPI History of present illness: Mr. Mueller is a 81 year old male Past Med Surg Social Fam HX - Past Medical History Medical history: coronary artery disease, CVA, diabetes, GERD, glaucoma, hyperlipidemia, hypertension, renal disease Psychiatric history: no psych history - Past Surgical History Surgical History: carotid endarterectomy, coronary bypass (CABG), pacemaker/AICD , other - Social History Smoking Status: Former smoker Smokeless Tobacco Status: No Alcohol use: none Drug use: none - Family History Father Hx Family Endocrine Disorder: Yes (diabetes) Mother Hx Family Cancer: Yes (brain) Internal Medicine - H&P: Meds Clopidogrel [Plavix] 75 mg PO DAILY 10/27/16 [History] Furosemide [Lasix] 40 mg PO DAILY 10/27/16 [History] GlipiZIDE [Glucotrol] 2.5 mg PO 3XW 10/27/16 [History] Levothyroxine [Synthroid] 25 mcg PO DAILY 10/27/16 [History] Lisinopril 2.5 mg PO DAILY 10/27/16 [History] Metoprolol Succinate 25 mg PO DAILY 10/27/16 [History] Omeprazole 20 mg PO DAILY 10/27/16 [History] Potassium Chloride [Klor-Con 10] 10 meq PO BID 10/27/16 [History] Simvastatin [Zocor] 20 mg PO DAILY 10/27/16 [History] Tamsulosin HCl [Flomax] 0.4 mg PO DAILY 10/27/16 [History] Cholecalciferol (Vitamin D3) [Vitamin D] 5,000 unit PO DAILY 10/28/16 [History] Folic Acid 1 mg PO DAILY 10/28/16 [History] Allergies No Known Allergies Allergy (Verified 10/28/16 08:41) All Systems PM: A 10-system review of systems was performed and is negative for pertinent findings except as documented above in the HPI. - Constitutional Vitals: Temp Pulse Resp BP Pulse Ox 97.5 F L 89 16 113/70 97 11/01/16 10:54 11/01/16 10:54 11/01/16 10:54 11/01/16 10:54 11/01/16 10:54 General appearance: Present: cooperative, A&O X 3, pleasant, no acute distress, answers questions appropriately - Head Head exam: Present: atraumatic, normocephalic - Eye Eye exam: Present: normal appearance, conjuntiva pink, sclera anicteric - Respiratory Respiratory exam: Present: CTAB. Absent: respiratory distress, wheezes - Cardiovascular Cardiovascular exam: Present: RRR, +S1, +S2 - GI/Abdominal GI/Abdominal exam: Present: normal bowel sounds, soft. Absent: distended, tenderness (RUQ SUSHMA drain in place) - Extremities Exam Extremities exam: Present: pedal edema (mild b/l ankle edema, edema in b/l UE), warm, radial pulses palpable and symetrical. Absent: calf tenderness, tenderness - Neurological Exam Neurological exam: Present: alert, oriented X3 - Psychiatric Psychiatric exam: Present: normal affect, normal mood Internal Med - H&P Results - Labs CBC & Chem 7: 11/01/16 03:52 11/01/16 03:52 Labs: Short CBC 11/01/16 Range/Units 03:52 WBC 7.5 (4.3-11.1) K/mcL Hgb 7.6 L (12.9-16.9) g/dL Hct 23.8 L (37.5-50.1) % Plt Count 81 L (140-400) K/mcL Neutrophils # 5.9 (1.6-8.9) K/mcL BMP 11/01/16 03:52 Sodium 140 Potassium 4.3 Chloride 116 H Carbon Dioxide 16 L BUN 46 H Creatinine 2.84 H Glucose 108 H Calcium 8.4 L Liver Function 11/01/16 Range/Units 03:52 Total Bilirubin 2.4 H (0.2-1.2) mg/dL Direct Bilirubin 1.6 H (0.0-0.5) mg/dL AST 61 H (5-34) Units/L ALT 53 (0-55) Units/L Alkaline Phosphatase 326 H (38-126) Units/L Albumin 1.9 L (3.5-5.0) g/dL - Impressions ITS Impressions Retroperitoneum Ultrasound 10/28/16 16:00 IMPRESSION: 1. No hydronephrosis. 2. Mild left renal atrophy with increased echogenicity suggesting chronic medical renal disease. 3. Bilateral renal cysts measuring up to 2.1 cm. 4. Bladder wall is trabeculated with multiple small diverticula, a finding which can be seen with neurogenic bladder. D/ / Layo Ambriz MD / Layo Ambriz MD Interpreting Provider: Layo Ambriz MD Gallbladder Ultrasound 10/28/16 16:30 IMPRESSION: 1. Cholelithiasis with mild to moderate gallbladder wall thickening but negative sonographic Colunga's sign. Findings are equivocal for acute cholecystitis. Consider further evaluation with HIDA scan if clinically indicated. 2. Mild right renal atrophy with a 1.8 cm cyst. No hydronephrosis. D/ / Layo Ambriz MD / Layo Ambriz MD Interpreting Provider: Layo Ambriz MD Cholangiogram,Operative 10/29/16 18:48 IMPRESSION: Status post cholecystectomy with at least 2 filling defects in the distal common duct. These may represent stones or gas. D/ / Félix Nuno MD / Félix Nuno MD Interpreting Provider: Félix Nuno MD Cath/Invasive Procedure 10/31/16 13:09 IMPRESSION: Intraprocedural fluoroscopic spot images as above. See separate procedure report for more information. D/ / Ayo Coreas MD / Ayo Coreas MD Interpreting Provider: Ayo Coreas MD
[2016-11-01] MEDS: *HR* Heparin 5,000 UNIT/ML VIAL SQ SCH (12:45)
[2016-11-01] MEDS ORDERED: 0.9 % Sodium Chloride 250 ML ONE (12:53)
--- NOTE | 2016-11-01 15:47 | Venous Imaging Report ---
UE Venous Duplex Patient Name:Héctor Mueller Order Number:[id number] Procedure Date:11/01/2016 Date:1935ge:81 yrs Gender:Male Location:[facility] Room #: 3A51 Gun Fitter:Noe Quiroga RDCS Referring MD:Johan Traylor MD business education teacher:Angie Austin, BOTTOM TURNING LATHE TURNER Reading MD:Eliceo Chan MD , FACS Primary Indications:Edema Secondary Indications: Risk Factors Yes/No Anticoagulants Yes Trauma to Veins Yes Impressions: Right upper extremity: normal superficial and deep exam. Left upper extremity: normal contralateral exam. Recommendations: After imaging the patient returned to their room. Findings Venous Duplex Results: Right: Venous imaging of the upper extremity reveals full patency and normal vessel compressibility of the right jugular, right subclavian, right axillary, right brachial, right cephalic, right basilic, right radial and right ulnar. Doppler signals in the evaluated veins were normal. Left: Venous imaging of the upper extremity reveals full patency and normal vessel compressibility of the left subclavian. Doppler signals in the evaluated veins were normal. Prior Study: No prior study available for comparison. Upper Extremity Venous Duplex Side Vein Compress Spontaneous Flow Augment Right Jugular Normal Yes Phasic Yes Right Subclavian Normal Yes Phasic Yes Right Axillary Normal Yes Phasic Yes Right Brachial Normal Yes Phasic Yes Right Cephalic Normal Yes Phasic Yes Right Basilic Normal Yes Phasic Yes Right Radial Normal Yes Phasic Yes Right Ulnar Normal Yes Phasic Yes Left Subclavian Normal Yes Phasic Yes Updated by Eliceo Chan MD, FACS on 11/01/2016 3:41:53 PM Eliceo Chan MD electronically signed on 11/01/2016 3:42:32 PM with status of Final
--- NOTE | 2016-11-01 15:57 | Internal Med Progress Note ---
Date of Encounter: 11/01/16 Time of Encounter: 12:26 - Assessment and plan (1) Anemia Current Visit: Yes Status: Acute Assessment and plan: Drop in H&H noted today Transfuse 2 units PRBCs Continue to monitor H&H NO Active bleeding noted at this time We will continue to monitor closely Qualifiers: Anemia type: unspecified type Qualified Code(s): D64.9 - Anemia, unspecified (2) Choledocholithiasis with acute cholecystitis with obstruction Current Visit: Yes Status: Acute Assessment and plan: Patient status post cholecystectomy and ERCP with stone removal and dilation of CBD. Patient doing well postoperatively Tolerating clear liquid diet well, we will advance to diabetic diet this evening Surgery following, surgical eval appreciated SUSHMA drain to be removed by surgery Continue antibiotics PT/OT eval pending (3) Metabolic acidosis Current Visit: Yes Status: Acute Assessment and plan: Likely secondary to IV fluids Discontinue IV fluids at this time Continue to monitor (4) ANDREW (acute kidney injury) Current Visit: Yes Status: Acute Assessment and plan: Kidney function improving, Probably GE valve appreciated Continue to monitor renal function (5) DVT prophylaxis Current Visit: Yes Status: Acute Assessment and plan: Heparin subcutaneous (6) Hypertension Current Visit: Yes Status: Acute Assessment and plan: BP within acceptable range Continue home medications Qualifiers: Hypertension type: essential hypertension Qualified Code(s): I10 - Essential (primary) hypertension (7) Diabetes Current Visit: Yes Status: Chronic Assessment and plan: Continue insulin sliding scale Monitor fingerstick and blood glucose Qualifiers: Diabetes mellitus type: type 2 Diabetes mellitus complication status: with unspecified complications Diabetes mellitus technician terminal and repeater insulin use: without technician terminal and repeater use Qualified Code(s): E11.8 - Type 2 diabetes mellitus with unspecified complications (8) Hypomagnesemia Current Visit: Yes Status: Acute Assessment and plan: Magnesium supplemented Continue to monitor electrolytes and replace as needed - Subjective Interval history: Patient seen and examined, with family present at bedside. Patient was noted to have slight blood at the Sinclair catheter insertion site, Sinclair catheter was removed. Patient reports of voiding status post catheter removal and having no bloody discharge since then. He denies any complains at this time. - Constitutional Vitals: Temp Pulse Resp BP Pulse Ox 97.8 F 93 15 106/63 99 11/01/16 13:19 11/01/16 13:04 11/01/16 13:19 11/01/16 13:19 11/01/16 13:19 General appearance: Present: cooperative, A&O X 3, pleasant, no acute distress, answers questions appropriately - Head Head exam: Present: atraumatic, normocephalic - Eye Eye exam: Present: normal appearance, conjuntiva pink, sclera anicteric - Respiratory Respiratory exam: Present: CTAB. Absent: respiratory distress, wheezes - Cardiovascular Cardiovascular exam: Present: RRR, +S1, +S2 - GI/Abdominal GI/Abdominal exam: Present: normal bowel sounds, soft. Absent: distended, tenderness (RUQ SUSHMA drain in place) - Extremities Exam Extremities exam: Present: pedal edema (mild b/l ankle edema, edema in b/l UE), warm, radial pulses palpable and symetrical. Absent: calf tenderness - Neurological Exam Neurological exam: Present: alert, oriented X3, no focal deficits - Psychiatric Psychiatric exam: Present: normal affect, normal mood Internal Medicine: Result - Labs CBC & Chem 7: 11/01/16 03:52 11/01/16 03:52 Labs: Short CBC 11/01/16 Range/Units 03:52 WBC 7.5 (4.3-11.1) K/mcL Hgb 7.6 L (12.9-16.9) g/dL Hct 23.8 L (37.5-50.1) % Plt Count 81 L (140-400) K/mcL Neutrophils # 5.9 (1.6-8.9) K/mcL BMP 11/01/16 03:52 Sodium 140 Potassium 4.3 Chloride 116 H Carbon Dioxide 16 L BUN 46 H Creatinine 2.84 H Glucose 108 H Calcium 8.4 L Liver Function 11/01/16 Range/Units 03:52 Total Bilirubin 2.4 H (0.2-1.2) mg/dL Direct Bilirubin 1.6 H (0.0-0.5) mg/dL AST 61 H (5-34) Units/L ALT 53 (0-55) Units/L Alkaline Phosphatase 326 H (38-126) Units/L Albumin 1.9 L (3.5-5.0) g/dL - ABG Interpretation ABG results: PT/INR, D-dimer PT 19.0 Seconds (9.4-12.1) H 11/01/16 03:52 - Impressions Impressions Cath/Invasive Procedure 10/31/16 13:09 IMPRESSION: Intraprocedural fluoroscopic spot images as above. See separate procedure report for more information. D/ / 11/01/2016 12:30:58 Ayo Coreas MD / [email or web address] Interpreting Provider: Ayo Coreas MD Consult Discharge Plan - Plan Referrals: Angie Austin CNP [Primary Care Provider] - 11/05/16 9:00 am
[2016-11-02] MEDS: *HR* Heparin 5,000 UNIT/ML VIAL SQ SCH ×3 (01:04→23:32)
[2016-11-02] MEDS: Piperacillin/Tazobactam 3.375 GM in D5% in Water (Mini-Bag+) 100 ML IVPB SCH (05:24)
[2016-11-02 05:35] LABS: Mean Platelet Volume 12.3 fL (9.4-12.4)
[2016-11-02 05:51] LABS: Albumin/Globulin Ratio 0.7 (1.1-2.2); Calcium 8.5 mg/dL (8.6-10.8); Magnesium 1.4 mg/dL (1.6-2.6); Phosphorous 2.1 mg/dL (2.3-4.7); Potassium 4.3 mEq/L (3.5-4.5)
[2016-11-02 05:54] LABS: Bilirubin,Total 2.7 mg/dL (0.2-1.2)
[2016-11-02 06:04] LABS: Basophils % 0.3 %; Eosinophils # 0.3 K/mcL (0.0-0.6); Eosinophils % 4.5 %; Hematocrit 31.5 % (37.5-50.1); Hemoglobin 10.5 g/dL (12.9-16.9); Immature Granulocytes % 1.5 % (0-4); Immature Platelets 8.3 % (1.1-6.1); Lymphocytes # 0.9 K/mcL (0.6-4.6); Lymphocytes % 12.3 %; Mean Corpuscular HGB Conc 33.3 g/dL (31.6-35.5); Mean Corpuscular Hemoglobin 30.9 pg (28.0-33.3); Mean Corpuscular Volume 92.6 fL (83.0-100.0); Monocytes # 0.7 K/mcL (0.0-1.3); Monocytes % 9.1 %; Red Cell Distribution Width 17.3 % (11.5-14.5); Segmented Neutrophils % 72.3 %
[2016-11-02 06:40] LABS: Neutrophils # 5.4 K/mcL (1.6-8.9); Platelet Count 95 K/mcL (140-400)
[2016-11-02] MEDS: Insulin LISPRO 300 UNITS/3 ML VIAL SQ SCH ×5 (07:30→20:44)
--- NOTE | 2016-11-02 07:52 | General Surgery Progress Note ---
<Selwyn Cormier - Last Filed: 11/02/16 14:37> Date of Encounter: 11/02/16 Time of Encounter: 07:45 - Assessment and Plan (1) Choledocholithiasis with acute cholecystitis with obstruction Current Visit: Yes Status: Acute POD #4 s/p laparoscopic cholecystectomy and intraoperative cholangiogram for evidence of common bile duct obstruction with elevated bilirubin and acute cholecysititis. Status post ERCP on 10/31/16 revealed choledocholithiasis, complete removal was accomplished by biliary sphincterotomy and balloon extraction. 1 stone removed from cystic duct, 4+ stones removed from common bile duct. Temporary stent placed into common bile duct. IV antibiotics-Zosyn, Flagyl Tolerating diabetic diet Continue SUSHMA drain management. Likely d/c with drain. Supportive care/pain control Outpatient follow up scheduled for 11/11/16 at 9:45am with Mily Hidalgo CNP for surgery. (2) Anemia Current Visit: Yes Status: Acute Improved s/p transfusion 2 units pRBCs on 11/01/16. Hgb 7.6>10.5 No active bleeding noted. Continue management per medicine team. Qualifiers: Anemia type: unspecified type Qualified Code(s): D64.9 - Anemia, unspecified (4) ANDREW (acute kidney injury) Current Visit: Yes Status: Acute Improving. Cr 2.52 with GFR 25 Continue management per medicine service. (5) Diabetes mellitus Current Visit: Yes Status: Acute Stable. On SSI Continue management per medicine service Qualifiers: Diabetes mellitus type: type 2 Diabetes mellitus complication status: with unspecified complications Diabetes mellitus intermodal customer service insulin use: without retirement use Qualified Code(s): E11.8 - Type 2 diabetes mellitus with unspecified complications Subjective Patient reports: no new complaints, feels better, pain is less, voiding w/o difficulty, bowel movement Objective Vital Signs - Last 8 Hours Temp Pulse Resp BP Pulse Ox 11/02/16 07:07 97.9 F 74 16 114/67 97 11/02/16 07:00 97 11/02/16 04:42 98.2 F 87 16 126/71 96 Intake and Output 11/01/16 11/01/16 11/02/16 15:59 23:59 07:59 Intake Total 2344 / 2344 1300 / 1300 1670 / 1670 Output Total 530 / 530 320 / 320 120 / 120 Balance 1814 / 1814 980 / 980 1550 / 1550 Intake: IV Fluids 304 / 304 100 / 100 550 / 550 Magnesium Sulfate 2 GM In 104 / 104 Dextrose 5% 100 ML @ 100 mls/hr IVPB ONCE ONE Rx# :[id number] Flagyl 500 MG/100 ML 500 100 / 100 100 / 100 100 / 100 mg In 100 ml @ 100 mls/hr IVPB Q8HR [facility] Rx#: [id number] Zosyn 3.375 GM In 100 / 100 200 / 200 Dextrose 5% (Minibag+) 100 ML 100 ML @ 25 mls/hr IVPB Q12HR [facility] Rx#: [id number] Oral 1440 / 1440 600 / 600 1120 / 1120 Blood Product 600 / 600 600 / 600 Rbcs Leuko Poor As-1 600 / 600 Unit [id number] Rbcs Leuko Poor As-1 600 / 600 Unit [id number] Output: Urine 250 / 250 300 / 300 100 / 100 Urine/Stool Mix 0 / 0 Catheter 200 / 200 Wound Drainage 80 / 80 20 / 20 20 / 20 Right Upper Abdomen 80 / 80 20 / 20 20 / 20 Other: Meal Clear Dinner Percent of Meal Consumed 100% Stool Size Small Stool Consistency liquid Stool Color Brown # Bowel Movements 1 0 Weight 70 kg Blood Glucose* 152 185 137 Patient Weight 11/02/16 23:59 Weight 70 kg - General physical appearance well developed, no distress - Eyes PERRL, normal ocular movement - ENT normal mucosa, atraumatic, normocephalic - Neck Neck exam: trachea midline - Respiratory normal respiratory effort, clear to auscultation - Cardiovascular Cardiovascular exam: Present: RRR - Abdomen Abdomen: Present: bowel sounds present (hypoactive), soft, non tender, wound ( SUSHMA to right abdomen with serosanguinous fluid ) - Incision Incision: Present: clean and dry, intact - Integumentary no rash - Neurologic CN 2-12 grossly intact - Psychiatric oriented to time, oriented to person, oriented to place - Labs 11/02/16 05:04 11/02/16 05:04 Diabetes panel 11/02/16 Range/Units 05:04 Sodium 136 (136-145) mEq/L Potassium 4.3 (3.5-4.5) mEq/L Chloride 114 H (98-109) mEq/L Carbon Dioxide 15 L (19-29) mEq/L BUN 40 H (8-26) mg/dL Creatinine 2.52 H (0.72-1.25) mg/dL Glucose 99 (70-99) mg/dL Calcium 8.5 L (8.6-10.8) mg/dL AST 46 H (5-34) Units/L ALT 43 (0-55) Units/L Alkaline Phosphatase 376 H (38-126) Units/L Albumin 2.0 L (3.5-5.0) g/dL Calcium panel 11/02/16 Range/Units 05:04 Calcium 8.5 L (8.6-10.8) mg/dL Phosphorus 2.1 L (2.3-4.7) mg/dL Albumin 2.0 L (3.5-5.0) g/dL Pituitary panel 11/02/16 Range/Units 05:04 Sodium 136 (136-145) mEq/L Potassium 4.3 (3.5-4.5) mEq/L Chloride 114 H (98-109) mEq/L Carbon Dioxide 15 L (19-29) mEq/L BUN 40 H (8-26) mg/dL Creatinine 2.52 H (0.72-1.25) mg/dL Glucose 99 (70-99) mg/dL Calcium 8.5 L (8.6-10.8) mg/dL Adrenal panel 11/02/16 Range/Units 05:04 Sodium 136 (136-145) mEq/L Potassium 4.3 (3.5-4.5) mEq/L Chloride 114 H (98-109) mEq/L Carbon Dioxide 15 L (19-29) mEq/L BUN 40 H (8-26) mg/dL Creatinine 2.52 H (0.72-1.25) mg/dL Glucose 99 (70-99) mg/dL Calcium 8.5 L (8.6-10.8) mg/dL Total Bilirubin 2.7 H (0.2-1.2) mg/dL AST 46 H (5-34) Units/L ALT 43 (0-55) Units/L Alkaline Phosphatase 376 H (38-126) Units/L Albumin 2.0 L (3.5-5.0) g/dL Consult Discharge Plan - Plan Referrals: Angie Austin, [facility] [Primary Care Provider] - 11/05/16 9:00 am Aura Hidalgo, DATA WAREHOUSE ARCHITECT [Advanced Practice Nurse] - 11/11/16 9:45 am (f/u lap bravo 2/3, s/p ERCP 2/5) <Boubacar Garay - Last Filed: 11/03/16 07:44> - Assessment and Plan (1) Choledocholithiasis with acute cholecystitis with obstruction Current Visit: Yes Status: Acute Objective Vital Signs - Last 8 Hours Temp Pulse Resp BP Pulse Ox 11/03/16 07:05 97 11/03/16 06:00 97.8 F 79 16 121/74 97 11/03/16 03:45 98.0 F 75 18 103/63 98 Intake and Output 11/02/16 11/02/16 11/03/16 15:59 23:59 07:59 Intake Total 580 / 580 1545 / 1545 0 / 0 Output Total 150 / 150 250 / 250 210 / 210 Balance 430 / 430 1295 / 1295 -210 / -210 Intake: IV Fluids 100 / 100 1125 / 1125 Sodium Bicarbonate 125 1125 / 1125 MEQ In 0.45% Sodium Chloride 1000 Ml 1000 Ml 1,000 ML @ 125 mls/hr IVC .Q9H ONE Rx#:[id number] Flagyl 500 MG/100 ML 500 100 / 100 mg In 100 ml @ 100 mls/hr IVPB Q8HR [facility] Rx#: [id number] Oral 480 / 480 420 / 420 0 / 0 Output: Urine 0 / 0 175 / 175 150 / 150 Wound Drainage 150 / 150 75 / 75 60 / 60 Right Upper Abdomen 150 / 150 75 / 75 60 / 60 Other: Meal Lunch Dinner Percent of Meal Consumed 100% 5% # Voids 1 # Bowel Movements 0 Weight 70.3 kg Blood Glucose* 132 119 Patient Weight 11/03/16 23:59 Weight 70.3 kg - Labs 11/03/16 05:19 11/03/16 05:19 Diabetes panel 11/03/16 Range/Units 05:19 Sodium 137 (136-145) mEq/L Potassium 4.3 (3.5-4.5) mEq/L Chloride 112 H (98-109) mEq/L Carbon Dioxide 19 (19-29) mEq/L BUN 36 H (8-26) mg/dL Creatinine 2.44 H (0.72-1.25) mg/dL Glucose 126 H (70-99) mg/dL Calcium 8.4 L (8.6-10.8) mg/dL Calcium panel 11/03/16 Range/Units 05:19 Calcium 8.4 L (8.6-10.8) mg/dL Phosphorus 1.9 L (2.3-4.7) mg/dL Pituitary panel 11/03/16 Range/Units 05:19 Sodium 137 (136-145) mEq/L Potassium 4.3 (3.5-4.5) mEq/L Chloride 112 H (98-109) mEq/L Carbon Dioxide 19 (19-29) mEq/L BUN 36 H (8-26) mg/dL Creatinine 2.44 H (0.72-1.25) mg/dL Glucose 126 H (70-99) mg/dL Calcium 8.4 L (8.6-10.8) mg/dL Adrenal panel 11/03/16 Range/Units 05:19 Sodium 137 (136-145) mEq/L Potassium 4.3 (3.5-4.5) mEq/L Chloride 112 H (98-109) mEq/L Carbon Dioxide 19 (19-29) mEq/L BUN 36 H (8-26) mg/dL Creatinine 2.44 H (0.72-1.25) mg/dL Glucose 126 H (70-99) mg/dL Calcium 8.4 L (8.6-10.8) mg/dL - Attending Attestation I examined this patient and my medical decision-making was reviewed with the NURSING STAFF DEVELOPMENT COORDINATOR/PA/Advanced Practice Nurse/Resident Physician. I agree with the documented findings, disposition and treatment plan as described except to the extent set forth below. Boubacar Garay MD FACS
[2016-11-02] MEDS ORDERED: SODIUM BICARBONATE IVC ONE (08:15)
[2016-11-02] MEDS ORDERED: SODIUM CHLORIDE 0.45% IVC ONE (08:15)
[2016-11-02] MEDS: MetroNIDAZOLE 500 MG/100 ML 500 MG/100 ML BAG IVPB SCH (08:19)
[2016-11-02] MEDS: Folic Acid 1 MG TABLET PO SCH (08:19)
[2016-11-02] MEDS: Magnesium Oxide 400 MG TABLET PO SCH ×2 (08:20→20:46)
[2016-11-02] MEDS: Levothyroxine 25 MCG TABLET PO SCH (08:20)
[2016-11-02] MEDS: Cholecalciferol (D-3) 1,000 UNIT TABLET PO SCH (08:20)
--- NOTE | 2016-11-02 10:43 | Internal Med Progress Note ---
Date of Encounter: 11/02/16 Time of Encounter: 10:42 - Assessment and plan (1) Metabolic acidosis Current Visit: Yes Status: Acute Assessment and plan: Likely secondary to IV fluids/underlying renal disease noted to have bicarb deficit of 5amp started bicarb drip (2.5amp in 0.45%NS at 125cc/hr x 1L) Continue to monitor (2) Hypomagnesemia Current Visit: Yes Status: Acute Assessment and plan: Magnesium supplemented Continue to monitor electrolytes and replace as needed (3) Anemia Current Visit: Yes Status: Acute Assessment and plan: s/p 2PRBC transfusion on 11/01/16 Repeat H&H within acceptable range will continue to monitor Qualifiers: Anemia type: unspecified type Qualified Code(s): D64.9 - Anemia, unspecified (4) Choledocholithiasis with acute cholecystitis with obstruction Current Visit: Yes Status: Acute Assessment and plan: Patient status post cholecystectomy and ERCP with stone removal and dilation of CBD. Patient doing well postoperatively Tolerating diabetic diet Surgery following, surgical eval appreciated SUSHMA drain to be removed by surgery Continue antibiotics, switch to PO. PT eval: SNF recommended environmental services supervisor consulted for placement Discharge pending SNF placement (5) ANDREW (acute kidney injury) Current Visit: Yes Status: Acute Assessment and plan: Kidney function improving, nephrology eval appreciated Continue to monitor renal function (6) DVT prophylaxis Current Visit: Yes Status: Acute Assessment and plan: Heparin subcutaneous (7) Hypertension Current Visit: Yes Status: Acute Assessment and plan: BP within acceptable range Continue home medications Qualifiers: Hypertension type: essential hypertension Qualified Code(s): I10 - Essential (primary) hypertension (8) Diabetes Current Visit: Yes Status: Chronic Assessment and plan: Continue insulin sliding scale Monitor fingerstick and blood glucose Qualifiers: Diabetes mellitus type: type 2 Diabetes mellitus complication status: with unspecified complications Diabetes mellitus exterminator helper insulin use: without group home use Qualified Code(s): E11.8 - Type 2 diabetes mellitus with unspecified complications - Subjective Interval history: Patient seen and examined, with family present at bedside. Resting comfortably in chair and reports of feeling better compared to the previous day. Still has the SUSHMA drain in place and draining significant amount of serous sanguinous fluid. Surgery on board. No overnight events were reported. - Constitutional Vitals: Temp Pulse Resp BP Pulse Ox 97.8 F 85 16 116/73 97 02/07/17 10:25 11/02/16 10:25 11/02/16 10:25 11/02/16 10:25 11/02/16 10:25 General appearance: Present: cooperative, A&O X 3, pleasant, no acute distress, answers questions appropriately - Head Head exam: Present: atraumatic, normocephalic - Eye Eye exam: Present: normal appearance, conjuntiva pink, sclera anicteric - Respiratory Respiratory exam: Present: CTAB. Absent: respiratory distress, wheezes - Cardiovascular Cardiovascular exam: Present: RRR, +S1, +S2 - GI/Abdominal GI/Abdominal exam: Present: normal bowel sounds, soft (RUQ SUSHMA drain in place). Absent: distended, tenderness - Extremities Exam Extremities exam: Present: pedal edema (bilateral pedal edema), warm, radial pulses palpable and symetrical. Absent: calf tenderness, tenderness - Neurological Exam Neurological exam: Present: alert, oriented X3 - Psychiatric Psychiatric exam: Present: normal affect, normal mood Internal Medicine: Result - Labs CBC & Chem 7: 11/02/16 05:04 11/02/16 05:04 Labs: Short CBC 11/02/16 Range/Units 05:04 WBC 7.4 (4.3-11.1) K/mcL Hgb 10.5 L D (12.9-16.9) g/dL Hct 31.5 L (37.5-50.1) % Plt Count 95 L (140-400) K/mcL Neutrophils # 5.4 (1.6-8.9) K/mcL BMP 11/02/16 05:04 Sodium 136 Potassium 4.3 Chloride 114 H Carbon Dioxide 15 L BUN 40 H Creatinine 2.52 H Glucose 99 Calcium 8.5 L Liver Function 11/02/16 Range/Units 05:04 Total Bilirubin 2.7 H (0.2-1.2) mg/dL AST 46 H (5-34) Units/L ALT 43 (0-55) Units/L Alkaline Phosphatase 376 H (38-126) Units/L Albumin 2.0 L (3.5-5.0) g/dL - ABG Interpretation ABG results: PT/INR, D-dimer PT 19.0 Seconds (9.4-12.1) H 11/01/16 03:52 - Impressions Impressions Cath/Invasive Procedure 10/31/16 13:09 IMPRESSION: Intraprocedural fluoroscopic spot images as above. See separate procedure report for more information. D/ / 11/01/2016 12:30:58 Ayo Coreas MD / carrington Interpreting Provider: Ayo Coreas MD Consult Discharge Plan - Plan Referrals: Aura Hidalgo CNP [Advanced Practice Nurse] - 11/11/16 9:45 am (f/u lap bravo 2, s/p ERCP 10/31) Angie Austin CNP [Primary Care Provider] - 11/05/16 9:00 am
[2016-11-02] MEDS: metroNIDAZOLE 500 MG TABLET PO SCH ×2 (14:13→20:46)
[2016-11-03 05:32] LABS: Basophils % 0.5 %; Eosinophils # 0.3 K/mcL (0.0-0.6); Eosinophils % 3.8 %; Hematocrit 32.7 % (37.5-50.1); Immature Granulocytes % 1.7 % (0-4); Lymphocytes # 1.1 K/mcL (0.6-4.6); Lymphocytes % 13.7 %; Mean Corpuscular HGB Conc 33.6 g/dL (31.6-35.5); Mean Corpuscular Hemoglobin 30.9 pg (28.0-33.3); Mean Corpuscular Volume 91.9 fL (83.0-100.0); Mean Platelet Volume 11.4 fL (9.4-12.4); Monocytes # 0.9 K/mcL (0.0-1.3); Monocytes % 10.9 %; Neutrophils # 5.6 K/mcL (1.6-8.9); Platelet Count 125 K/mcL (140-400); Red Blood Count 3.56 M/mcL (4.19-5.50); Red Cell Distribution Width 17.2 % (11.5-14.5); Segmented Neutrophils % 69.4 %
[2016-11-03 05:48] LABS: Calcium 8.4 mg/dL (8.6-10.8); Magnesium 1.6 mg/dL (1.6-2.6); Phosphorous 1.9 mg/dL (2.3-4.7); Potassium 4.3 mEq/L (3.5-4.5)
--- NOTE | 2016-11-03 07:33 | General Surgery Progress Note ---
<Selwyn Cormier - Last Filed: 11/03/16 09:16> Date of Encounter: 11/03/16 Time of Encounter: 07:00 - Assessment and Plan (1) Choledocholithiasis with acute cholecystitis with obstruction Current Visit: Yes Status: Acute POD #5 s/p laparoscopic cholecystectomy and intraoperative cholangiogram for evidence of common bile duct obstruction with elevated bilirubin and acute cholecysititis. S/p ERCP on 10/31/16 revealed choledocholithiasis, complete removal was accomplished by biliary sphincterotomy and balloon extraction. 1 stone removed from cystic duct, 4+ stones removed from common bile duct. Temporary stent placed into common bile duct. IV antibiotics switched by primary team to PO Flagyl and Augmentin. Tolerating diabetic diet Continue SUSHMA drain management. Will likely d/c drain on outpatient follow up Continue with supportive care/pain control Hepatic panel pending, total bilirubin yesterday elevated at 2.7. Outpatient surgery follow up scheduled for 11/11/16 at 9:45am with Mily Hidalgo CNP. (2) Anemia Current Visit: Yes Status: Acute Improved s/p transfusion 2 units pRBCs on 11/01/16. Hgb 11.0 today No active bleeding. Management per medicine team. Qualifiers: Anemia type: unspecified type Qualified Code(s): D64.9 - Anemia, unspecified (3) Metabolic acidosis Current Visit: Yes Status: Acute Bicarb improved 15>19 with bicarb drip Management per medicine service (4) ANDREW (acute kidney injury) Current Visit: Yes Status: Acute Continues to improve. Cr 2.44 and GFR 26 today Management per medicine service. (5) Diabetes mellitus Current Visit: Yes Status: Acute Stable on SSI Management per medicine service Qualifiers: Diabetes mellitus type: type 2 Diabetes mellitus complication status: with unspecified complications Diabetes mellitus ex chef insulin use: without ex chef use Qualified Code(s): E11.8 - Type 2 diabetes mellitus with unspecified complications (6) DVT prophylaxis Current Visit: Yes Status: Acute Heparin 5,000 units Q12H for PVT prophylaxis Subjective Patient reports: no new complaints, feels better, pain is less, flatus, no bowel movement, afebrile Objective Vital Signs - Last 8 Hours Temp Pulse Resp BP Pulse Ox 11/03/16 07:05 97 11/03/16 06:00 97.8 F 79 16 121/74 97 11/03/16 03:45 98.0 F 75 18 103/63 98 11/02/16 23:34 97.7 F 77 18 115/72 97 Intake and Output 11/02/16 11/02/16 11/03/16 15:59 23:59 07:59 Intake Total 580 / 580 1545 / 1545 0 / 0 Output Total 150 / 150 250 / 250 210 / 210 Balance 430 / 430 1295 / 1295 -210 / -210 Intake: IV Fluids 100 / 100 1125 / 1125 Sodium Bicarbonate 125 1125 / 1125 MEQ In 0.45% Sodium Chloride 1000 Ml 1000 Ml 1,000 ML @ 125 mls/hr IVC .Q9H ONE Rx#:[id number] Flagyl 500 MG/100 ML 500 100 / 100 mg In 100 ml @ 100 mls/hr IVPB Q8HR THOMAS Rx#: [id number] Oral 480 / 480 420 / 420 0 / 0 Output: Urine 0 / 0 175 / 175 150 / 150 Wound Drainage 150 / 150 75 / 75 60 / 60 Right Upper Abdomen 150 / 150 75 / 75 60 / 60 Other: Meal Lunch Dinner Percent of Meal Consumed 100% 5% # Voids 1 # Bowel Movements 0 Weight 70.3 kg Blood Glucose* 132 119 Patient Weight 11/03/16 23:59 Weight 70.3 kg - General physical appearance well developed, well nourished, no distress - Eyes normal ocular movement - ENT normal mucosa - Neck Neck exam: trachea midline - Respiratory normal respiratory effort, clear to auscultation - Cardiovascular Cardiovascular exam: Present: RRR - Abdomen Abdomen: Present: bowel sounds present, soft, non tender, wound (SUSHMA drain to right abdomen with serosanguinous fluid present) - Incision Incision: Present: clean and dry, intact - Integumentary no rash - Neurologic CN 2-12 grossly intact - Psychiatric oriented to time, oriented to person, oriented to place - Labs 11/03/16 05:19 11/03/16 05:19 Diabetes panel 11/03/16 Range/Units 05:19 Sodium 137 (136-145) mEq/L Potassium 4.3 (3.5-4.5) mEq/L Chloride 112 H (98-109) mEq/L Carbon Dioxide 19 (19-29) mEq/L BUN 36 H (8-26) mg/dL Creatinine 2.44 H (0.72-1.25) mg/dL Glucose 126 H (70-99) mg/dL Calcium 8.4 L (8.6-10.8) mg/dL Calcium panel 11/03/16 Range/Units 05:19 Calcium 8.4 L (8.6-10.8) mg/dL Phosphorus 1.9 L (2.3-4.7) mg/dL Pituitary panel 11/03/16 Range/Units 05:19 Sodium 137 (136-145) mEq/L Potassium 4.3 (3.5-4.5) mEq/L Chloride 112 H (98-109) mEq/L Carbon Dioxide 19 (19-29) mEq/L BUN 36 H (8-26) mg/dL Creatinine 2.44 H (0.72-1.25) mg/dL Glucose 126 H (70-99) mg/dL Calcium 8.4 L (8.6-10.8) mg/dL Adrenal panel 11/03/16 Range/Units 05:19 Sodium 137 (136-145) mEq/L Potassium 4.3 (3.5-4.5) mEq/L Chloride 112 H (98-109) mEq/L Carbon Dioxide 19 (19-29) mEq/L BUN 36 H (8-26) mg/dL Creatinine 2.44 H (0.72-1.25) mg/dL Glucose 126 H (70-99) mg/dL Calcium 8.4 L (8.6-10.8) mg/dL Consult Discharge Plan - Plan Additional Instructions: Please follow up with PCP within one week after your discharge from the hospital. Please follow up with surgery and nephrology within one week after your discharge from the hospital. Please continue oral antibiotics as prescribed. Please continue to hold Lisinopril and Lasix until your kidney function returns to baseline. please obtain prescribed lab work prior to your appointment with your hydrant setter. Please continue to hold Metoprolol unless your SBP>150. Resume all other home medications as prescribed by your primary care physician. SUSHMA drain to remain in place until your follow up with surgery. Referrals: Aura Hidalgo CNP [Advanced Practice Nurse] - 11/11/16 9:45 am (f/u lap bravo 2/3, s/p ERCP 2/5) Austin,Angie C, LITERARY AGENT [Primary Care Provider] - 11/05/16 9:00 am Prescriptions: Amoxicillin/Clavulanate [Augmentin] 875 mg PO BIDWM #9 tablet MetroNIDAZOLE [Flagyl] 500 mg PO TID #13 tablet <Boubacar Garay - Last Filed: 11/03/16 22:23> - Assessment and Plan (1) Choledocholithiasis with acute cholecystitis with obstruction Current Visit: Yes Status: Acute Objective Vital Signs - Last 8 Hours Temp Pulse Resp BP Pulse Ox 11/03/16 19:45 97 11/03/16 19:00 97.6 F 91 20 120/72 97 11/03/16 16:00 98.0 F 75 16 134/63 98 11/03/16 15:30 98 Intake and Output 11/03/16 11/03/16 11/03/16 07:59 15:59 23:59 Intake Total 0 / 0 720 / 720 250 / 250 Output Total 210 / 210 480 / 480 150 / 150 Balance -210 / -210 240 / 240 100 / 100 Intake: Oral 0 / 0 720 / 720 250 / 250 Output: Urine 150 / 150 400 / 400 100 / 100 Wound Drainage 60 / 60 80 / 80 50 / 50 Right Upper Abdomen 60 / 60 80 / 80 50 / 50 Other: Meal Lunch water pitcher Percent of Meal Consumed 5% # Voids 1 1 Weight 70.3 kg Blood Glucose* 122 110 Patient Weight 11/03/16 23:59 Weight 70.3 kg - Labs 11/03/16 05:19 11/03/16 05:19 Diabetes panel 11/03/16 Range/Units 05:19 Sodium 137 (136-145) mEq/L Potassium 4.3 (3.5-4.5) mEq/L Chloride 112 H (98-109) mEq/L Carbon Dioxide 19 (19-29) mEq/L BUN 36 H (8-26) mg/dL Creatinine 2.44 H (0.72-1.25) mg/dL Glucose 126 H (70-99) mg/dL Calcium 8.4 L (8.6-10.8) mg/dL AST 36 H (5-34) Units/L ALT 38 (0-55) Units/L Alkaline Phosphatase 426 H (38-126) Units/L Albumin 2.1 L (3.5-5.0) g/dL Calcium panel 11/03/16 Range/Units 05:19 Calcium 8.4 L (8.6-10.8) mg/dL Phosphorus 1.9 L (2.3-4.7) mg/dL Albumin 2.1 L (3.5-5.0) g/dL Pituitary panel 11/03/16 Range/Units 05:19 Sodium 137 (136-145) mEq/L Potassium 4.3 (3.5-4.5) mEq/L Chloride 112 H (98-109) mEq/L Carbon Dioxide 19 (19-29) mEq/L BUN 36 H (8-26) mg/dL Creatinine 2.44 H (0.72-1.25) mg/dL Glucose 126 H (70-99) mg/dL Calcium 8.4 L (8.6-10.8) mg/dL Adrenal panel 11/03/16 Range/Units 05:19 Sodium 137 (136-145) mEq/L Potassium 4.3 (3.5-4.5) mEq/L Chloride 112 H (98-109) mEq/L Carbon Dioxide 19 (19-29) mEq/L BUN 36 H (8-26) mg/dL Creatinine 2.44 H (0.72-1.25) mg/dL Glucose 126 H (70-99) mg/dL Calcium 8.4 L (8.6-10.8) mg/dL Total Bilirubin 2.0 H (0.2-1.2) mg/dL AST 36 H (5-34) Units/L ALT 38 (0-55) Units/L Alkaline Phosphatase 426 H (38-126) Units/L Albumin 2.1 L (3.5-5.0) g/dL - Attending Attestation I examined this patient and my medical decision-making was reviewed with the HUMAN RESOURCES TRAINER/PA/Advanced Practice Nurse/Resident Physician. I agree with the documented findings, disposition and treatment plan as described except to the extent set forth below. Boubacar Garay MD FACS
[2016-11-03] MEDS: metroNIDAZOLE 500 MG TABLET PO SCH ×3 (08:25→21:00)
[2016-11-03] MEDS: Folic Acid 1 MG TABLET PO SCH (08:25)
[2016-11-03] MEDS: Magnesium Oxide 400 MG TABLET PO SCH ×2 (08:25→21:00)
[2016-11-03] MEDS: Cholecalciferol (D-3) 1,000 UNIT TABLET PO SCH (08:25)
[2016-11-03] MEDS: Levothyroxine 25 MCG TABLET PO SCH (08:25)
[2016-11-03 09:02] LABS: Albumin 2.1 g/dL (3.5-5.0); Albumin/Globulin Ratio 0.7 (1.1-2.2); Bilirubin,Direct 1.5 mg/dL (0.0-0.5); Bilirubin,Indirect 0.5 mg/dL (0.0-1.2); Total Protein 5.1 g/dL (6.0-8.3)
--- NOTE | 2016-11-03 11:13 | Discharge Summary ---
Date of Encounter: 11/03/16 Time of Encounter: 11:13 - Discharge Diagnosis (1) Metabolic acidosis Priority: Secondary Status: Resolved (2) Hypomagnesemia Priority: Secondary Status: Resolved (3) Anemia Priority: Secondary Status: Chronic Qualifiers: Anemia type: unspecified type Qualified Code(s): D64.9 - Anemia, unspecified (4) Choledocholithiasis with acute cholecystitis with obstruction Priority: Primary Status: Acute (5) ANDREW (acute kidney injury) Priority: Secondary Status: Acute (6) DVT prophylaxis Priority: Secondary Status: Acute (7) Hypertension Priority: Secondary Status: Acute Qualifiers: Hypertension type: essential hypertension Qualified Code(s): I10 - Essential (primary) hypertension (8) Diabetes Priority: Secondary Status: Chronic Qualifiers: Diabetes mellitus type: type 2 Diabetes mellitus complication status: with unspecified complications Diabetes mellitus long term acute care registered nurse insulin use: without long term acute care registered nurse use Qualified Code(s): E11.8 - Type 2 diabetes mellitus with unspecified complications - Discharge Medications Prescriptions: Amoxicillin/Clavulanate [Augmentin] 875 mg PO BIDWM #9 tablet MetroNIDAZOLE [Flagyl] 500 mg PO TID #13 tablet Home Medications: Clopidogrel [Plavix] 75 mg PO DAILY 10/27/16 [History] GlipiZIDE [Glucotrol] 2.5 mg PO 3XW 10/27/16 [History] Levothyroxine [Synthroid] 25 mcg PO DAILY 10/27/16 [History] Omeprazole 20 mg PO DAILY 10/27/16 [History] Potassium Chloride [Klor-Con 10] 10 meq PO BID 10/27/16 [History] Simvastatin [Zocor] 20 mg PO DAILY 10/27/16 [History] Tamsulosin HCl [Flomax] 0.4 mg PO DAILY 10/27/16 [History] Cholecalciferol (Vitamin D3) [Vitamin D3] 5,000 unit PO DAILY 10/28/16 [History] Folic Acid 1 mg PO DAILY 10/28/16 [History] Amoxicillin/Clavulanate [Augmentin] 875 mg PO BIDWM #9 tablet 11/03/16 [Rx] MetroNIDAZOLE [Flagyl] 500 mg PO TID #13 tablet 11/03/16 [Rx] Allergies/Adverse Reactions: Allergies No Known Allergies Allergy (Verified 10/28/16 08:41) Procedures/tests Complete & Pending: Procedures Performed prior 72 hours Category Date Time Status Venous Doppler [EV venous imaging UE RT] Routine Y 11/01/16 00:01 Completed Date of admission: 10/29/16 07:45 Primary care physician: Angie Austin Consults: 10/28/16 00:54 Consult to Occupational Therapy [CONS] Routine Comment: Evaluate, develop and implement POC Consult to Physical Therapy [CONS] Routine Comment: Evaluate, develop and implement POC 10/28/16 04:13 Consult to Nephrology [CONS] Routine Consulting Provider: [facility] Reason for Consult: ANDREW on CKD, new onset CHF Call Completed: No 10/28/16 18:59 Consult to Cable Installation Manager [CONS] Routine Reason for SW Consult: Family requesting more info on Home health. 10/29/16 07:52 Consult to Surgery [CONS] Routine Consulting Provider: Boubacar Garay Reason for Consult: cholecystitis Call Completed: Yes 10/29/16 10:18 Consult to Gastroenterology [CONS] Routine Consulting Provider: Juventino Walton Reason for Consult: Hyperbilirubinemia Time Notified: 09:30 Call Completed: Yes 10/29/16 22:25 Consult to Pulmonology [CONS] Routine Consulting Provider: [facility] [place] Reason for Consult: icu management Call Completed: No Discharging clinician: Karley Mcadams Anticipated date of discharge: 11/03/16 - Patient Status Disposition: Transfer SNF Condition: Good Functional capacity at discharge: uses cane/walker Overall status at discharge: patient is progressing back to baseline - Ambulatory Orders Ambulatory Orders: Basic Metabolic Panel [CHEM] Time Frame: 1 Week, Facility: [facility], Location: Lab - Discharge Instructions Follow Up With: Aura Hidalgo CNP [Advanced Practice Nurse] - 11/11/16 9:45 am (f/u lap bravo 2/3, s/p ERCP 2/5) Angie Austin CNP [Primary Care Provider] - 11/05/16 9:00 am Additional Instructions: Please follow up with PCP within one week after your discharge from the hospital. Please follow up with surgery and nephrology within one week after your discharge from the hospital. Please continue oral antibiotics as prescribed. Please continue to hold Lisinopril and Lasix until your kidney function returns to baseline. please obtain prescribed lab work prior to your appointment with your internet marketing director. Please continue to hold Metoprolol unless your SBP>150. Resume all other home medications as prescribed by your primary care physician. SUSHMA drain to remain in place until your follow up with surgery. - Diet and Activity Activity: as per physical therapy Diet: low fat, low cholesterol, low salt diet Hospital course: Mr. Mueller is a 81 year old male with PMHx of CAD (s/p CABG), hx of stroke, CKD, HTN, DM, CHF, right carotid stenosis, sick sinus syndrome, ischemic cardiomyopathy who was admitted for management of acute cholecystitis with cholelithiais. He was followed by surgery and GI. He was started on empiric IV abx and underwent laproscopic cholecystectomy and ERCP with removal of CBD stone and stent placement. His post op course was complicated with anemia for which he received 2unit PRBCs. He was also noted to have ANDREW on CKD along with metabolic acidosis. His home medications of Lasix was placed on hold and the bicarb was replaced. He was also noted to be hypotensive due to which his home antihypertensive medications were placed on hold. His blood pressure throughout the course of the admission remained within acceptable range despite being off his antihypertensives. He was evaluated by physical therapy and SNF was recommended. At this time patient is stable for discharge. Surgery is to follow the patient next week and want the patient to be discharged with the SUSHMA drain. He is to continue oral antibiotics. His kidney function will be closely monitored by his PCP and internet marketing director. His antihypertensive medications and lasix will remain on hold. Lasix, Lisinopril to be resume by PCP once kidney function returns to baseline. Metoprolol and Lisinopril to stay on hold as patient has not required the use of this medication since admission and his BP has remained stable. Patient and family demonstrates understanding of his discharge plan. - Time Spent with Patient Total time spent providing and/or coordinating discharge services: Greater than 30 minutes - Constitutional Vitals: Temp Pulse Resp BP Pulse Ox 97.8 F 79 16 121/74 97 11/03/16 06:00 11/03/16 06:00 11/03/16 06:00 11/03/16 06:00 11/03/16 07:05 General appearance: Present: cooperative, A&O X 3, pleasant, no acute distress, answers questions appropriately - Head Head exam: Present: atraumatic, normocephalic - Eye Eye exam: Present: normal appearance, conjuntiva pink, sclera anicteric - Respiratory Respiratory exam: Absent: respiratory distress, wheezes - Cardiovascular Cardiovascular exam: Present: RRR, +S1, +S2 - GI/Abdominal GI/Abdominal exam: Present: normal bowel sounds (RUQ SUSHMA drain in place), soft. Absent: tenderness - Extremities Exam Extremities exam: Present: pedal edema (bilateral LE edema), warm, radial pulses palpable and symetrical. Absent: calf tenderness - Neurological Exam Neurological exam: Present: alert, oriented X3 - Psychiatric Psychiatric exam: Present: normal affect, normal mood
[2016-11-03] MEDS: Insulin LISPRO 300 UNITS/3 ML VIAL SQ SCH ×3 (11:30→21:00)
[2016-11-03] MEDS: *HR* Heparin 5,000 UNIT/ML VIAL SQ SCH ×2 (12:00→23:39)
--- NOTE | 2016-11-03 14:10 | Physician Discharge Referral ---
ExtendedCare Referral Info Transfer To: [facility] - Diagnosis (1) Metabolic acidosis Priority: Secondary Status: Resolved (2) Hypomagnesemia Priority: Secondary Status: Resolved (3) Anemia Priority: Secondary Status: Chronic (4) Choledocholithiasis with acute cholecystitis with obstruction Priority: Primary Status: Acute (5) ANDREW (acute kidney injury) Priority: Secondary Status: Acute (6) DVT prophylaxis Priority: Secondary Status: Acute (7) Hypertension Priority: Secondary Status: Acute (8) Diabetes Priority: Secondary Status: Chronic - Transfer Medications Prescriptions: Amoxicillin/Clavulanate [Augmentin] 875 mg PO BIDWM #9 tablet MetroNIDAZOLE [Flagyl] 500 mg PO TID #13 tablet Home Medications: Clopidogrel [Plavix] 75 mg PO DAILY 10/27/16 [History] GlipiZIDE [Glucotrol] 2.5 mg PO 3XW 10/27/16 [History] Levothyroxine [Synthroid] 25 mcg PO DAILY 10/27/16 [History] Omeprazole 20 mg PO DAILY 10/27/16 [History] Potassium Chloride [Klor-Con 10] 10 meq PO BID 10/27/16 [History] Simvastatin [Zocor] 20 mg PO DAILY 10/27/16 [History] Tamsulosin HCl [Flomax] 0.4 mg PO DAILY 10/27/16 [History] Cholecalciferol (Vitamin D3) [Vitamin D3] 5,000 unit PO DAILY 10/28/16 [History] Folic Acid 1 mg PO DAILY 10/28/16 [History] Amoxicillin/Clavulanate [Augmentin] 875 mg PO BIDWM #9 tablet 11/03/16 [Rx] MetroNIDAZOLE [Flagyl] 500 mg PO TID #13 tablet 11/03/16 [Rx] Allergies/Adverse Reactions: Allergies No Known Allergies Allergy (Verified 10/28/16 08:41) - Respiratory Orders Smoking Cessation: Smoking cessation has been advised. For more information, call the [place] Tobacco Quit Line at 7-933-PNAB-NOW. - Treatments List/Other: Please follow up with PCP within one week after your discharge from the hospital. Please follow up with surgery and nephrology within one week after your discharge from the hospital. Please continue oral antibiotics as prescribed. Please continue to hold Lisinopril and Lasix until your kidney function returns to baseline. please obtain prescribed lab work prior to your appointment with your drop tester. Please continue to hold Metoprolol unless your SBP>150. Resume all other home medications as prescribed by your primary care physician. USSHMA drain to remain in place until your follow up with surgery. please closely monitor signs for CHF exacerbation as patient's Lasix is placed on hold due to kidney function. - Diet Orders Cardiac (low fat diet, s/p cholecystectomy) CERTIFICATION: I certify that the transfer of the above named patient to an Extended Care Facility is necessary for the continuing treatment of the diagnosis listed. The above information is true and accurate reflection of patient's current condition. Confidential - Redisclosure prohibited without a patient's written consent.
[2016-11-04 04:53] LABS: Albumin/Globulin Ratio 0.6 (1.1-2.2); Bilirubin,Total 1.9 mg/dL (0.2-1.2); Calcium 8.5 mg/dL (8.6-10.8); Globulin 2.9 g/dL (2.4-3.5); Potassium 4.6 mEq/L (3.5-4.5); Total Protein 4.7 g/dL (6.0-8.3)
[2016-11-04 04:57] LABS: Albumin 1.8 g/dL (3.5-5.0)
[2016-11-04] MEDS: Insulin LISPRO 300 UNITS/3 ML VIAL SQ SCH ×2 (07:52→11:51)
[2016-11-04] MEDS: metroNIDAZOLE 500 MG TABLET PO SCH ×2 (08:03→14:25)
[2016-11-04] MEDS: Levothyroxine 25 MCG TABLET PO SCH (08:03)
[2016-11-04] MEDS: Magnesium Oxide 400 MG TABLET PO SCH (08:03)
[2016-11-04] MEDS: Cholecalciferol (D-3) 1,000 UNIT TABLET PO SCH (08:04)
[2016-11-04] MEDS: Folic Acid 1 MG TABLET PO SCH (08:04)
--- NOTE | 2016-11-04 08:44 | General Surgery Progress Note ---
<Selwyn Cormier - Last Filed: 11/04/16 13:57> Date of Encounter: 11/04/16 Time of Encounter: 08:00 - Assessment and Plan (1) Choledocholithiasis with acute cholecystitis with obstruction Status: Acute POD #6 s/p laparoscopic cholecystectomy and intraoperative cholangiogram for evidence of common bile duct obstruction with elevated bilirubin and acute cholecysititis. S/p ERCP on 10/31/16 revealed choledocholithiasis, complete removal was accomplished by biliary sphincterotomy and balloon extraction. 1 stone removed from cystic duct, 4+ stones removed from common bile duct. Temporary stent placed into common bile duct. IV antibiotics switched by primary team to PO Flagyl and Augmentin. Tolerating diabetic diet Continue with supportive care/pain control Primary medicine service found placement at [place] for inpatient rehab, likely discharge today. No bilious drainage per SUSHMA, will discontinue drain today. Outpatient surgery follow up scheduled for 11/11/16 at 9:45am with Mily Hidalgo CNP. (2) Anemia Status: Chronic Improved. s/p transfusion 2 units pRBCs on 11/01/16. Hgb 11.0 yesterday. No active bleeding. Management per medicine team. Qualifiers: Anemia type: unspecified type Qualified Code(s): D64.9 - Anemia, unspecified (3) Metabolic acidosis Status: Resolved Bicarb 18 today Management per medicine service (4) ANDREW (acute kidney injury) Status: Acute Continues to improve. Cr 2.44>2.17 and GFR 29 today Management per medicine service. (5) Diabetes mellitus Status: Acute Stable on SSI Management per medicine service Qualifiers: Diabetes mellitus type: type 2 Diabetes mellitus complication status: with unspecified complications Diabetes mellitus fci insulin use: without oil heaterman use Qualified Code(s): E11.8 - Type 2 diabetes mellitus with unspecified complications (6) DVT prophylaxis Status: Acute Heparin 5,000 units Q12H for DVT prophylaxis Subjective Patient reports: no new complaints, feels better, pain is less, tolerating a regular diet, flatus, bowel movement, afebrile Objective Vital Signs - Last 8 Hours Temp Pulse Resp BP Pulse Ox 11/04/16 08:10 96 11/04/16 06:46 98.1 F 78 16 123/73 96 11/04/16 05:00 98.6 F 72 17 110/65 97 Intake and Output 11/03/16 11/04/16 11/04/16 23:59 07:59 15:59 Intake Total 250 / 250 0 / 0 Output Total 150 / 150 40 / 40 Balance 100 / 100 -40 / -40 Intake: Oral 250 / 250 0 / 0 Output: Urine 100 / 100 0 / 0 Wound Drainage 50 / 50 40 / 40 Right Upper Abdomen 50 / 50 40 / 40 Other: Meal water pitcher Stool Size Small Stool Consistency loose Stool Color Brown # Voids 1 1 # Bowel Movements 1 Weight 70.8 kg Blood Glucose* 110 115 Patient Weight 11/04/16 23:59 Weight 70.8 kg - General physical appearance well developed, well nourished, no distress - Eyes normal ocular movement - ENT normal mucosa, atraumatic, normocephalic - Neck Neck exam: trachea midline - Respiratory normal respiratory effort, clear to auscultation - Cardiovascular Cardiovascular exam: Present: RRR - Abdomen Abdomen: Present: bowel sounds present, soft, non tender, wound (SUSHMA drain with serosanginous fluid present (SUSHMA removed today)) - Incision Incision: Present: clean and dry, intact - Neurologic CN 2-12 grossly intact - Psychiatric oriented to time, oriented to person, oriented to place, speech is normal - Labs 11/03/16 05:19 11/04/16 04:24 Diabetes panel 11/03/16 11/04/16 Range/Units 05:19 04:24 Sodium 137 136 (136-145) mEq/L Potassium 4.3 4.6 H (3.5-4.5) mEq/L Chloride 112 H 112 H (98-109) mEq/L Carbon Dioxide 19 18 L (19-29) mEq/L BUN 36 H 34 H (8-26) mg/dL Creatinine 2.44 H 2.17 H (0.72-1.25) mg/dL Glucose 126 H 117 H (70-99) mg/dL Calcium 8.4 L 8.5 L (8.6-10.8) mg/dL AST 36 H 29 (5-34) Units/L ALT 38 27 (0-55) Units/L Alkaline Phosphatase 426 H 448 H (38-126) Units/L Albumin 2.1 L 1.8 L (3.5-5.0) g/dL Calcium panel 11/03/16 11/04/16 Range/Units 05:19 04:24 Calcium 8.4 L 8.5 L (8.6-10.8) mg/dL Phosphorus 1.9 L (2.3-4.7) mg/dL Albumin 2.1 L 1.8 L (3.5-5.0) g/dL Pituitary panel 11/03/16 11/04/16 Range/Units 05:19 04:24 Sodium 137 136 (136-145) mEq/L Potassium 4.3 4.6 H (3.5-4.5) mEq/L Chloride 112 H 112 H (98-109) mEq/L Carbon Dioxide 19 18 L (19-29) mEq/L BUN 36 H 34 H (8-26) mg/dL Creatinine 2.44 H 2.17 H (0.72-1.25) mg/dL Glucose 126 H 117 H (70-99) mg/dL Calcium 8.4 L 8.5 L (8.6-10.8) mg/dL Adrenal panel 11/03/16 11/04/16 Range/Units 05:19 04:24 Sodium 137 136 (136-145) mEq/L Potassium 4.3 4.6 H (3.5-4.5) mEq/L Chloride 112 H 112 H (98-109) mEq/L Carbon Dioxide 19 18 L (19-29) mEq/L BUN 36 H 34 H (8-26) mg/dL Creatinine 2.44 H 2.17 H (0.72-1.25) mg/dL Glucose 126 H 117 H (70-99) mg/dL Calcium 8.4 L 8.5 L (8.6-10.8) mg/dL Total Bilirubin 2.0 H 1.9 H (0.2-1.2) mg/dL AST 36 H 29 (5-34) Units/L ALT 38 27 (0-55) Units/L Alkaline Phosphatase 426 H 448 H (38-126) Units/L Albumin 2.1 L 1.8 L (3.5-5.0) g/dL - VTE Documentation of Mechanical Device: Intermittent pneumatic compression device Consult Discharge Plan - Plan Additional Instructions: Please follow up with PCP within one week after your discharge from the hospital. Please follow up with surgery and nephrology within one week after your discharge from the hospital. Please continue oral antibiotics as prescribed. Please continue to hold Lisinopril and Lasix until your kidney function returns to baseline. please obtain prescribed lab work prior to your appointment with your dorr operator. Please continue to hold Metoprolol unless your SBP>150. Resume all other home medications as prescribed by your primary care physician. SUSHMA drain to remain in place until your follow up with surgery. Referrals: Aura Hidalgo CNP [Advanced Practice Nurse] - 11/11/16 9:45 am (f/u lap bravo 2, s/p ERCP 2) Angie Austin CNP [Primary Care Provider] - 11/05/16 9:00 am Prescriptions: Amoxicillin/Clavulanate [Augmentin] 875 mg PO BIDWM #9 tablet MetroNIDAZOLE [Flagyl] 500 mg PO TID #13 tablet <Boubacar Garya - Last Filed: 11/05/16 16:32> - Assessment and Plan (1) Choledocholithiasis with acute cholecystitis with obstruction Status: Acute Objective - Labs 11/03/16 05:19 11/04/16 04:24 - Attending Attestation I examined this patient and my medical decision-making was reviewed with the [employer] ARCHITECT/PA/Advanced Practice Nurse/Resident Physician. I agree with the documented findings, disposition and treatment plan as described except to the extent set forth below. Boubacar Garay MD FACS
--- NOTE | 2016-11-04 09:18 | Event Note ---
Date of Encounter: 11/04/16 Time of Encounter: 09:18 The patient's renal function has returned to baseline. Nephrology will sign off. Please call again if needed.
--- NOTE | 2016-11-04 11:41 | Internal Med Progress Note ---
Date of Encounter: 11/04/16 Time of Encounter: 11:40 - Assessment and plan (1) Metabolic acidosis Status: Resolved (2) Hypomagnesemia Status: Resolved (3) Anemia Status: Chronic Qualifiers: Anemia type: unspecified type Qualified Code(s): D64.9 - Anemia, unspecified (4) Choledocholithiasis with acute cholecystitis with obstruction Status: Acute (5) ANDREW (acute kidney injury) Status: Acute (6) DVT prophylaxis Status: Acute (7) Hypertension Status: Acute Qualifiers: Hypertension type: essential hypertension Qualified Code(s): I10 - Essential (primary) hypertension (8) Diabetes Status: Chronic Qualifiers: Diabetes mellitus type: type 2 Diabetes mellitus complication status: with unspecified complications Diabetes mellitus terminal carman insulin use: without alf use Qualified Code(s): E11.8 - Type 2 diabetes mellitus with unspecified complications - Subjective Interval history: Patient seen and examined at bedside. Resting comfortably in chair. Reports of feeling better and no complaints at this time. SUSHMA drain was removed today. Patient is to be discharged to [facility] today. He is to follow up with primary care, surgery within 1 week after his discharge from the hospital. To continue prescribed antibiotics. Patient and family demonstrates understanding of the diagnosis, and agrees with the discharge care and plan. Discharged to SNF today. - Constitutional Vitals: Temp Pulse Resp BP Pulse Ox 98.1 F 78 16 123/73 96 11/04/16 06:46 11/04/16 06:46 11/04/16 06:46 11/04/16 06:46 11/04/16 08:10 General appearance: Present: cooperative, A&O X 3, pleasant, no acute distress, answers questions appropriately - Head Head exam: Present: atraumatic, normocephalic - Eye Eye exam: Present: normal appearance, conjuntiva pink, sclera anicteric - Respiratory Respiratory exam: Present: CTAB. Absent: respiratory distress, wheezes - Cardiovascular Cardiovascular exam: Present: RRR, +S1, +S2 - GI/Abdominal GI/Abdominal exam: Present: normal bowel sounds, soft. Absent: distended, tenderness - Extremities Exam Extremities exam: Present: pedal edema, warm, radial pulses palpable and symetrical. Absent: calf tenderness - Neurological Exam Neurological exam: Present: alert, oriented X3 - Psychiatric Psychiatric exam: Present: normal affect, normal mood Internal Medicine: Result - Labs CBC & Chem 7: 11/03/16 05:19 11/04/16 04:24 Labs: BMP 11/04/16 04:24 Sodium 136 Potassium 4.6 H Chloride 112 H Carbon Dioxide 18 L BUN 34 H Creatinine 2.17 H Glucose 117 H Calcium 8.5 L Liver Function 11/04/16 Range/Units 04:24 Total Bilirubin 1.9 H (0.2-1.2) mg/dL AST 29 (5-34) Units/L ALT 27 (0-55) Units/L Alkaline Phosphatase 448 H (38-126) Units/L Albumin 1.8 L (3.5-5.0) g/dL - ABG Interpretation ABG results: PT/INR, D-dimer PT 19.0 Seconds (9.4-12.1) H 11/01/16 03:52 - VTE Documentation of Mechanical Device: Intermittent pneumatic compression device Consult Discharge Plan - Plan Additional Instructions: Please follow up with PCP within one week after your discharge from the hospital. Please follow up with surgery and nephrology within one week after your discharge from the hospital. Please continue oral antibiotics as prescribed. Please continue to hold Lisinopril and Lasix until your kidney function returns to baseline. please obtain prescribed lab work prior to your appointment with your sampling expert. Please continue to hold Metoprolol unless your SBP>150. Resume all other home medications as prescribed by your primary care physician. SUSHMA drain to remain in place until your follow up with surgery. Referrals: Aura Hidalgo CNP [Advanced Practice Nurse] - 11/11/16 9:45 am (f/u lap bravo 2/3, s/p ERCP 2/5) Angie Austin CNP [Primary Care Provider] - 11/05/16 9:00 am Prescriptions: Amoxicillin/Clavulanate [Augmentin] 875 mg PO BIDWM #9 tablet MetroNIDAZOLE [Flagyl] 500 mg PO TID #13 tablet
[2016-11-04 11:53] VITALS: BP 120/74
[2016-11-04] MEDS: *HR* Heparin 5,000 UNIT/ML VIAL SQ SCH (13:06)
== END 2016-11-04 15:04 | DRG 417 ==
LOC: 2ANU → SUATTDRO 10-29 07:45 → ICNU 10-29 23:45 → 3ANU 10-30 14:50
PROVIDERS: ADMIT Internal Medicine; ATTEND Internal Medicine

== ENCOUNTER 2021-07-26 08:29 | Inpatient (IN) ==
[2021-07-26] MEDS ORDERED: Melatonin 3 MG TABLET PO PRN (11:49)
[2021-07-26] MEDS ORDERED: Naloxone 0.4 MG/ML INJ IVP PRN (11:49)
[2021-07-26] MEDS ORDERED: Perflutren Lipid Microsphere 1.3 ML in 0.9 % Sodium Chloride 8.7 ML IVP PRN (12:29)
[2021-07-26] MEDS ORDERED: *HR* Digoxin 0.125 MG TABLET PO SCH (12:45)
[2021-07-26] MEDS ORDERED: Furosemide 20 MG/2 ML VIAL IVP ONE (13:31)
[2021-07-26] MEDS: cefTRIAXone 2,000 MG in Water for inj. (sterile) 20 ML IVP SCH (14:39)
[2021-07-26] MEDS: Albumin 25% 25gram/100mL 25 GM/100 ML IV.SOLN IVPB SCH ×2 (14:40→21:00)
[2021-07-26] MEDS: Lactulose Oral Soln 20 GM/30 ML UDC PO SCH ×2 (18:07→20:59)
[2021-07-26] MEDS: Apixaban 5 MG TABLET PO SCH (21:00)
[2021-07-27 01:03] LABS: Albumin 3.9 g/dL (3.5-5.7); Bilirubin,Total 2.8 mg/dL (0.3-1.0); Calcium 9.6 mg/dL (8.6-10.3); Magnesium 2.3 mg/dL (1.6-2.6); Potassium 3.7 mEq/L (3.5-5.1); Total Protein 5.9 g/dL (6.4-8.9)
[2021-07-27 01:10] LABS: Basophils % 0.3 %; Immature Granulocytes % 0.7 % (0-4)
[2021-07-27 01:11] LABS: Eosinophils % 0.7 %; Hematocrit 33.9 % (37.5-50.1); Hemoglobin 10.7 g/dL (12.9-16.9); Immature Platelets 6.8 % (1.1-6.1); Lymphocytes # 0.4 K/mcL (0.6-4.6); Lymphocytes % 14.1 %; Mean Corpuscular HGB Conc 31.6 g/dL (31.6-35.5); Mean Corpuscular Hemoglobin 33.2 pg (28.0-33.3); Mean Corpuscular Volume 105.3 fL (83.0-100.0); Mean Platelet Volume 13.2 fL (9.4-12.4); Monocytes # 0.3 K/mcL (0.0-1.3); Monocytes % 10.2 %; Neutrophils # 2.3 K/mcL (1.6-8.9); Red Blood Count 3.22 M/mcL (4.19-5.50); Red Cell Distribution Width 17.2 % (11.5-14.5); White Blood Count 3.1 K/mcL (4.3-11.1)
[2021-07-27 01:12] LABS: Platelet Count 48 K/mcL (140-400)
[2021-07-27 01:22] LABS: INR 2.3; Prothrombin Time 25.2 Seconds (9.4-12.1)
[2021-07-27] MEDS: Levothyroxine 25 MCG TABLET PO SCH (04:47)
[2021-07-27] MEDS: Albumin 25% 25gram/100mL 25 GM/100 ML IV.SOLN IVPB SCH (04:47)
[2021-07-27] MEDS: *HR* Digoxin 0.125 MG TABLET PO SCH (07:08)
[2021-07-27] MEDS: Apixaban 5 MG TABLET PO SCH ×2 (07:09→20:06)
[2021-07-27] MEDS: Lactulose Oral Soln 20 GM/30 ML UDC PO SCH ×2 (07:09→20:05)
[2021-07-27] MEDS: Metoprolol XL (24 HR) Succ 25 MG TAB.ER.24H PO SCH (07:09)
[2021-07-27] MEDS ORDERED: Aspirin 81 MG TAB.CHEW PO SCH (09:00)
[2021-07-27] MEDS: cefTRIAXone 2,000 MG in Water for inj. (sterile) 20 ML IVP SCH (12:58)
[2021-07-27 18:23] LABS: Uric Acid 9.1 mg/dL (2.3-7.6)
[2021-07-27 18:34] LABS: Hepatitis B Surface Antigen Nonreactive (Nonreactive)
[2021-07-27 19:03] LABS: Hepatitis B Core IgM Nonreactive (Nonreactive)
[2021-07-27 19:05] LABS: Hepatitis A Antibody IgM Nonreactive (Nonreactive); Hepatitis C Virus Antibody Nonreactive (Nonreactive)
[2021-07-27 23:18] LABS: Bacteria,Urine Few per hpf (None-Few); Bilirubin,Urine Negative (Negative); Blood,Urine Moderate (Negative); Clarity,Urine Clear (Clear); Color,Urine Yellow (Yellow); Glucose,Urine (UA) Normal (Normal); Hyaline Casts,Urine Few per lpf (None Seen); Ketones,Urine Negative (Negative); Leukocyte Esterase,Urine Trace (Negative); Mucus,Urine Few per lpf (None-Few); Nitrite,Urine Negative (Negative); PH,Urine 5.5 pH Units (5.0-8.0); Protein,Urine 100 mg/dL (Neg-Trace); Specific Gravity,Urine 1.019 (1.010-1.025); Squamous Epithelial Cell,Urine Few per hpf (None-Few); Urobilinogen,Urine Normal (Normal)
[2021-07-28 03:34] LABS: Calcium 9.7 mg/dL (8.6-10.3); Potassium 3.4 mEq/L (3.5-5.1)
[2021-07-28] MEDS: Levothyroxine 25 MCG TABLET PO SCH (05:09)
[2021-07-28] MEDS: Lactulose Oral Soln 20 GM/30 ML UDC PO SCH ×2 (08:07→22:01)
[2021-07-28] MEDS: Apixaban 5 MG TABLET PO SCH ×2 (08:07→21:59)
[2021-07-28] MEDS: Metoprolol XL (24 HR) Succ 25 MG TAB.ER.24H PO SCH (08:08)
[2021-07-28] MEDS: cefTRIAXone 1,000 MG in Water for inj. (sterile) 10 ML IVP SCH (13:45)
[2021-07-28] MEDS: Albumin 25% 25gram/100mL 25 GM/100 ML IV.SOLN IVPB SCH ×2 (13:46→22:00)
[2021-07-29 02:27] LABS: Hematocrit 31.5 % (37.5-50.1); Hemoglobin 9.9 g/dL (12.9-16.9); Immature Platelets 7.5 % (1.1-6.1); Mean Corpuscular HGB Conc 31.4 g/dL (31.6-35.5); Mean Corpuscular Hemoglobin 32.5 pg (28.0-33.3); Mean Corpuscular Volume 103.3 fL (83.0-100.0); Red Blood Count 3.05 M/mcL (4.19-5.50); Red Cell Distribution Width 17.2 % (11.5-14.5); White Blood Count 3.9 K/mcL (4.3-11.1)
[2021-07-29 02:44] LABS: Calcium 9.3 mg/dL (8.6-10.3); Potassium 3.7 mEq/L (3.5-5.1)
[2021-07-29] MEDS: Albumin 25% 25gram/100mL 25 GM/100 ML IV.SOLN IVPB SCH (05:26)
[2021-07-29] MEDS: Levothyroxine 25 MCG TABLET PO SCH (05:27)
[2021-07-29] MEDS: Metoprolol XL (24 HR) Succ 25 MG TAB.ER.24H PO SCH (07:56)
[2021-07-29] MEDS: *HR* Digoxin 0.125 MG TABLET PO SCH (07:56)
[2021-07-29] MEDS: Lactulose Oral Soln 20 GM/30 ML UDC PO SCH (07:57)
[2021-07-29] MEDS: Apixaban 5 MG TABLET PO SCH (07:57)
[2021-07-29 11:30] VITALS: BP 116/72; PULSE 60; TEMP 97.6; O2SAT 99
[2021-07-29] MEDS: cefTRIAXone 1,000 MG in Water for inj. (sterile) 10 ML IVP SCH (16:48)
== END 2021-07-29 18:31 | disposition hospice, home (50) | DRG 432 ==
LOC: 2ANU → SUATTDRO 11:49
PROVIDERS: ADMIT Internal Medicine; ATTEND Student in an Organized Health Care Education/Training Program